=== PATIENT | male | born 1965 | race Caucasian/White ===

== ENCOUNTER 2024-02-08 12:41 | Outpatient (OUT) | payer OTHER, SELFPAY ==
[2024-02-08 13:11] LABS: Estimated Average Glucose 108 mg/dL; Glycohemoglobin A1C 5.4 % (4.5-6.2)
[2024-02-08 13:28] LABS: Basophils Percent Auto 0.5 % (0.2-2.0); Eosinophils Absolute Auto 0.1 10^3/uL (0.0-0.7); Eosinophils Percent Auto 1.1 % (0.9-7.0); Hematocrit 49.6 % (42.0-54.0); Hemoglobin 15.8 g/dL (14.0-18.0); Immature Granulocytes Abs Auto 0.02 10^3/uL (0.00-0.03); Immature Granulocytes Pct Auto 0.3 % (0.0-0.5); Lymphocytes Absolute Auto 1.3 10^3/uL (1.2-3.8); Lymphocytes Percent Auto 20.5 % (20.5-60.0); Mean Corpuscular HGB Conc 31.9 g/dL (29.9-35.2); Mean Corpuscular Hemoglobin 30.5 pg (25.9-34.0); Mean Corpuscular Volume 95.8 fL (80.0-94.0); Mean Platelet Volume 10.8 fL (9.5-13.5); Monocytes Absolute Auto 0.4 10^3/uL (0.3-0.8); Monocytes Percent Auto 5.6 % (1.7-12.0); Neutrophils Absolute Auto 4.6 10^3/uL (1.4-6.5); Platelet Count 206 10^3/uL (150-450); Red Blood Count 5.18 10^6/uL (4.70-6.10); White Blood Count 6.4 10^3/uL (4.0-11.0)
[2024-02-08 14:20] LABS: Alanine Aminotransferase 15 U/L (16-63); Albumin Globulin Ratio 1.1; Albumin Level 3.7 g/dL (3.4-5.0); Alkaline Phosphatase 110 U/L (46-116); Anion Gap 9.1; Aspartate Amino Transferase 13 U/L (15-37); BUN Creatinine Ratio 15.3; Bilirubin Total 0.5 mg/dL (0.2-1.0); Calcium 9.5 mg/dL (8.5-10.1); Carbon Dioxide 31.2 mmol/L (21.0-32.0); Chloride 105 mmol/L (98-107); Chol HDL Ratio 3.5; Cholesterol 176 mg/dL (<=200); Estimated GFR (African America >60 (>=60); Estimated GFR (Non-African Ame >60 (>=60); Globulin 3.3 g/dL; Glucose 98 mg/dL (74-106); HDL Cholesterol 50 mg/dL (40-60); LDL Cholesterol Calculated 107.8 mg/dL; Potassium 4.3 mmol/L (3.5-5.1); Sodium 141 mmol/L (136-145); Triglycerides 91 mg/dL (<=150); VLDL CHOLESTEROL 18.2 mg/dL
== END 2024-02-08 12:42 | disposition home or self-care (01) ==
LOC: LAB 12:45
PROVIDERS: PCP Internal Medicine; Visit Provider Internal Medicine
DX: J43.9 Emphysema, unspecified (principal); K21.9 Gastro-esophageal reflux disease without esophagitis; R10.11 Right upper quadrant pain; K31.9 Disease of stomach and duodenum, unspecified; R10.13 Epigastric pain; Z13.1 Encounter for screening for diabetes mellitus; Z13.220 Encounter for screening for lipoid disorders
CPT/HCPCS: 36415; 80053; 80061; 83036; 85025

== ENCOUNTER 2024-02-23 13:53 | Outpatient (OUT) | payer OTHER, SELFPAY ==
--- NOTE | 2024-02-23 14:05 | CT_ITS ---
[address] [address] Patient Name: EVANGELINA PLAZA MRN: [id number] date: 1965 Sex: M Assigned Patient Location: CT Current Patient Location: CT Accession/Order Number: [id number] Exam Date: 02/23/2024 14:00 Report Date: 02/23/2024 14:49 At the request of: SHAIKH ADRIANA Procedure: CT lung screening low-dose EXAMINATION: CT lung screening low-dose HISTORY: screening for lung cancer Z12.2, nicotine dependence F17.210 COMPARISON: No relevant comparison available. TECHNIQUE: Axial, Coronal, and Sagittal images were created without the administration of IV contrast material. Dose reduction techniques were achieved by using automated exposure control and/or adjustment of mA and/or kV according to patient size and/or use of iterative reconstruction technique. FINDINGS: LUNGS: Mild centrilobular and paraseptal emphysema with an upper lobe predominance. Scattered punctate calcified and noncalcified pulmonary nodules, nonspecific. Irregular spiculated 1.1 x 0.8 cm soft tissue density identified in the left lower lobe axial image 125. 2 areas of groundglass attenuation are identified in the right lower lobe axial image 82 measuring 1.1 and 1.2 cm in diameter PLEURA: No mass, effusion, or pneumothorax. VASCULATURE: No abnormality. SUE: No mass or pathologic adenopathy. MEDIASTINUM: No mass or pathologic adenopathy. CARDIAC: No enlargement, pericardial thickening, or significant calcification. CORONARY ARTERIES: Coronary calcifications are mild. AORTA: No aneurysm or dissection. CHEST WALL: No mass or axillary adenopathy BONES: No bone lesion or fracture. Moderate degenerative spondylosis. Cervical fusion hardware LIMITED ABDOMEN: No suspicious findings. Limited images of the upper abdomen. OTHER: Negative. CT/CT lung screening low-dose IMPRESSION: LUNG SCREENING: Lung-RADS Category 3- Probably benign. Probably benign finding(s)- short term follow up suggested; includes nodules with a low likelihood of becoming a clinically active cancer. Six month LDCT. Electronically authenticated by: EVANGELINA MOLINA Date: 02/23/2024 14:49
== END 2024-02-23 13:54 | disposition home or self-care (01) ==
LOC: CT 13:53
PROVIDERS: PCP Internal Medicine; Visit Provider Internal Medicine
DX: Z12.2 Encounter for screening for malignant neoplasm of respiratory organs (principal); F17.210 Nicotine dependence, cigarettes, uncomplicated
CPT/HCPCS: 71271

== ENCOUNTER 2024-04-19 00:24 | Emergency (ER) | payer OTHER, SELFPAY ==
[2024-04-19 00:27] VITALS: BP 154/88; PULSE 81; TEMP 36.5; O2SAT 98; BMI 27.0
--- OUTSIDE RECORDS SUMMARY | 2024-04-19 00:31 | XMS_ITS | CCD ---
Author Organization [facility] Care Team Providers Care Mark Up Designer Name Role Phone MIGDALIA HUNTER Primary Care Unavailable YOLI TELLEZ Admitting Unavailable YOLI TELLEZ Attending Unavailable YOLI TELLEZ Consulting Unavailable PROVIDER, UNKNOWN Attending Unavailable PROVIDER, UNKNOWN Admitting Unavailable SHAIKH WRIGHT Attending Unavailable SHAIKH WRIGHT Attending Unavailable Allergies Allergy Classification Reported Allergen(s) Allergy Type Date of Onset Reaction(s) Facility (1 source) Penicillins Drug allergy (disorder) 07-05-2013 [facility] Repository Problems Problem Classification Problem Date Documented Da te Episodic/Chronic Chronic obstructive pulmonary disease and bronchiectasis (1 source) Chronic obstructive pulmonary disease, unspecified; Translations: [COPD UNSPECIFIED] Onset: 08-20-2020 Chronic Esophageal disorders (1 source) Gastro-esophageal reflux disease without esophagitis; Translations: [GERD WITHOUT ESOPHAGITIS] Onset: 08-20-2020 Chronic Poisoning by other medications and drugs (1 source) Poisoning by unspecified narcotics, accidental (unintentional), initial encounter; Translations: [POISON UNS NARCOTIC ACC INITIAL ENC] Onset: 08-20-2020 Residual codes; unclassified (3 sources) Transient alteration of awareness; Translations: [TRANSIENT ALTERATION OF AWARENESS] Onset: 08-16-2020 Episodic Substance-related disorders (1 source) Nicotine dependence, cigarettes, uncomplicated; Translations: [NICOTINE DEPEND CIGARETTES UNCOMP] Onset: 08-20-2020 Chronic Encounters Encounter Date Encounter Type Care Provider Facility Start: 02-16-2024 End: 02-16-2024 ambulatory SHAIKH ADRIANA Not Available Start: 12-29-2023 End: 12-29-2023 ambulatory SHAIKH ADRIANA Not Available Start: 07-04-2021 End: 07-09-2021 ambulatory UNKNOWN PROVIDER Facility:[facility] Start: 08-16-2020 End: 08-16-2020 Patient encounter procedure MIGDALIA HUNTER Facility:[facility] Payers Date Payer Category Payer Unknown [id number] 2.16.84 [id number] 1965 Unknown [id number] 1965 Unknown [id number] [id number] [id number] 1965 Unknown [id number] 2.16.84 [id number] 1957 Unknown [id number] Summary Purpose Family History No Family History Records FoundNo Family History Records FoundNo Family History Records Found Advance Directives No Advanced Directives Records FoundNo Advanced Directives Records FoundNo Advanced Directives Records Found Additional Source Comments (unrecognized sect ion and content) No Status Records FoundNo Status Records FoundNo Status Records Found INFORMATION SOURCE (unrecogn ized section and content) DATE CREATED AUTHOR 08/20/2020 [facility] DATE CREATED AUTHOR AUTHOR'S ORGANIZ ATION 07/12/2021 [facility] DATE CREATED AUTHOR AUTHOR'S ORGANIZ ATION 02/18/2024 [facility] FOR RECORDS PERTAINING TO PATIENTS WHO ARE OR HAVE BEEN ENROLLED IN A CHEMICAL DEPENDENCY/SUBSTANCEABUSE PROGRAM, SOME INFORMATION MAY BE OMITTED. This clinical summary was aggregated from multiple sources. Caution should be exercised in using it in the provision of clinical care. This summary normalizes information from multiple sources, and as a consequence, information in this document may materially change the coding, format and clinical context of patient data. In addition, data may be omitted in some cases. CLINICAL DECISIONS SHOULD BE BASED ON THE PRIMARY CLINICAL RECORDS. [facility] [employer] provides no warranty or guarantee of the accuracy or completeness of information in this document.
--- NOTE | 2024-04-19 00:58 | ED.FALL1 ---
HPI HPI - Fall General Chief Complaint: Fall Stated Complaint: left rib pain fall 04/16 Time Seen by Provider: 04/19/24 00:32 Source: patient Mode of arrival: walk-in Limitations: no limitations History of Present Illness HPI Narrative: This 59-year-old male with a history of COPD who is a smoker presents for evaluation of left-sided rib pain. The patient states he fell off of a ladder 2 days ago. He thinks he landed on top of a hammer. Since that time he has had pain in the left anterior rib cage area and states he has a knot in this area. He has increasing shortness of breath and worse pain with deep inspiration and coughing. He denies striking his head. He has no neck or back pain. He has been ambulatory since his fall. Related Data Home Medications ?Medication ?Instructions ?Recorded ?Confirmed No Known Home Medications 04/19/24 04/19/24 Allergies Allergy/AdvReac Type Severity Reaction Status Date / Time Penicillins Allergy Unknown Verified 04/19/24 00:32 Opioid HPI Opioid Management Most Recent Pain and Opioid Data: Last Pain Scale 10 04/19/24 01:12 Last MAR Pain Assessment 04/19/24 02:11 Review of Systems ROS Status of ROS 10 or more systems reviewed and unremarkable except as noted in history and below Exam Narrative Exam Narrative: Vital signs and Nursing Notes reviewed: Patient is afebrile with a normal pulse, blood pressure is elevated at 154/88, he is not hypoxic with pulse ox of 98% on room air General: Awake, alert, oriented, thin uncomfortable appearing male, he is pacing around the room, no respiratory distress HEENT: Normocephalic atraumatic, mucous membranes are moist and pink, eyes are clear, normal conjunctiva, vision is grossly intact Neck: Supple, no midline bony vertebral tenderness or step-off Chest: Lungs are diffusely diminished with mild expiratory wheezing, there is tenderness in the left anterior chest wall without crepitus bruising or other notable abnormality CVS: Regular rate and rhythm S1-S2, no murmurs rubs or gallops, pulses are brisk and equal bilaterally ABD: Soft, nondistended, nontender, no rebound guarding or rigidity, bowel sounds are normal, no pulsatile masses appreciated Extremities: Moving all extremities, no lower extremity tenderness or swelling noted, negative Homans' sign, pulses are brisk and equal bilaterally, no midline bony vertebral cervical, thoracic or lumbar tenderness Skin: Normal in appearance without rash,pallor, petechiae or purpura Neuro: No focal deficits Constitutional Vital Signs, click to edit/add: Last Vital Signs Temp 97.7 F 04/19/24 00:27 Pulse 72 04/19/24 02:13 Resp 18 04/19/24 02:13 BP 148/88 H 04/19/24 02:13 Pulse Ox 99 04/19/24 02:13 O2 Del Method Room Air 04/19/24 02:13 Course Vital Signs Vital signs: Vital Signs Temperature 97.7 F 04/19/24 00:27 Pulse Rate 81 04/19/24 00:27 Respiratory Rate 16 04/19/24 00:27 Blood Pressure 154/88 H 04/19/24 00:27 Pulse Oximetry 98 04/19/24 00:27 Oxygen Delivery Method Room Air 04/19/24 00:27 Temperature 97.7 F 04/19/24 00:27 Pulse Rate 72 04/19/24 02:13 Respiratory Rate 18 04/19/24 02:13 Blood Pressure 148/88 H 04/19/24 02:13 Pulse Oximetry 99 04/19/24 02:13 Oxygen Delivery Method Room Air 04/19/24 02:13 MDM - Fall MDM Narrative Medical decision making narrative: This 59-year-old male with a history of COPD and tobacco use presents for evaluation of left-sided chest pain after he fell from approximately 6 feet on a ladder 2 days ago and landed on a hammer. He has pain in the left anterior chest wall with pain with deep inspiration and coughing. He has expiratory wheezing and diffusely diminished breath sounds in keeping with his COPD. He did have bilateral breath sounds that were able to be appreciated and a normal pulse ox. He was medicated emergency department with a dose of Zofran and Percocet for his pain. CT scanning of the chest was ordered. The CT scan took a great deal of time for the reading to be done and the patient was anxious to be discharged. I reviewed it myself and do not see any fractures but most importantly I definitely do not see a pneumothorax. This was explained to the patient. He will be discharged home with prescription for Motrin, Zofran and Percocet to use over the course of the next several days. He was encouraged to decrease his tobacco intake to help decrease his coughing and return to the emergency department as needed for worsening pain, inability to take his medications or any concerns. I did explain to the patient and his that I will call him if there are any outstanding abnormalities on the CT scan of the chest. CT scan of the chest does show a 6th rib fracture anteriorly with COPD findings and an age indeterminant clavicular fracture. Medical Records Medical records narrative: [place] [address] CT Scan Report Signed Patient: EVANGELINA PLAZA MR#: [id number] : 1965 Acct:[id number] Age/Sex: 59 / M ADM Date: 04/19/24 Loc: ER Attending Dr: Ordering Physician: Bonita Jenkins Date of Service: 04/19/24 Procedure(s): CT chest wo con Accession Number(s): [id number] cc: Shaikh Claus Cain~ The [address] [address] Patient Name: EVANGELINA PLAZA MRN: [id number] date: 1965 Sex: M Assigned Patient Location: ER Current Patient Location: Accession/Order Number: [id number] Exam Date: 04/19/2024 01:00 Report Date: 04/19/2024 02:30 At the request of: BONITA JENKINS Procedure: CT chest wo con EXAMINATION: CT chest wo con, 04/19/2024 1:00 AM EDT HISTORY: PTX patient fell from a ladder. Complains of the left anterior rib pain. COMPARISON: CT chest, 02/23/2024. TECHNIQUE: CT scan of the chest was performed without IV contrast. Sagittal and coronal reconstructions are provided. CT dose reduction technique was used, including Automated Exposure Control. FINDINGS: The exam is limited by the lack of contrast. No mediastinal injury is seen. The nonenhanced thoracic aorta, arch vessels, heart, thyroid and esophagus are grossly unremarkable. There is mild pulmonary emphysema with biapical subpleural blebs or bulla. No pulmonary contusion, pleural fluid or pneumothorax is seen. The nonenhanced upper abdomen is grossly unremarkable. There is an age-indeterminate 8 mm avulsion fracture involving the posterior left clavicular head on image 18 of series 3. There is a nondisplaced fracture involving the left anterior sixth rib on images 76-78. The bony thorax appears otherwise intact. There is anterior fusion hardware in the lower cervical spine. A mild broad thoracic dextroscoliosis is noted with lower thoracic DISH. CORONARY ARTERIES: Coronary calcifications are absent. CT/CT chest wo con IMPRESSION: 1. Acute nondisplaced fracture involving the left anterior sixth rib, with an age indeterminant avulsion fracture involving the posterior left clavicular head. No other acute findings in the chest. 2. Mild pulmonary emphysema. Electronically authenticated by: TAN BILLY Date: 04/19/2024 02:30 Discharge Plan Discharge Stand Alone Forms: Portal Instructions Chief Complaint: Fall Clinical Impression: Fall from ladder, Contusion of rib on left side, Left rib fracture Patient Disposition: Home, Self-Care Time of Disposition Decision: 02:00 Condition: Good Prescriptions / Home Meds: No Action No Known Home Medications Print Language: [place] Islander Instructions: Rib Contusion (ED) Referrals: Shaikh Cain MD [Primary Care Provider] - 1 week Discharge Date/Time: 04/19/24 02:14
[2024-04-19] MEDS: OXYCODONE HCL/ACETAMINOPHEN 5MG/325MG 1 TAB PO (01:12)
[2024-04-19] MEDS: ONDANSETRON 4 MG RAPDIS TABLET SL (01:12)
[2024-04-19] MEDS: OXYCODONE HCL/ACETAMINOPHEN 5MG/325MG 2 TAB PO (02:11)
[2024-04-19 02:13] VITALS: BP 148/88; PULSE 72; O2SAT 99
== END 2024-04-19 02:14 | disposition home or self-care (01) ==
PROVIDERS: Emergency Provider Emergency Medicine; PCP Internal Medicine
DX: S22.32XA Fracture of one rib, left side, initial encounter for closed fracture (principal); J44.9 Chronic obstructive pulmonary disease, unspecified; F17.200 Nicotine dependence, unspecified, uncomplicated; W11.XXXA Fall on and from ladder, initial encounter
CPT/HCPCS: 71250; 99284; Q0162

== ENCOUNTER 2025-03-30 14:32 | Outpatient (OUT) | payer OTHER, SELFPAY ==
--- NOTE | 2025-03-30 14:38 | CT_ITS ---
The [address] [address] Patient Name: EVANGELINA PLAZA MRN: [id number] date: 1965 Sex: M Assigned Patient Location: CT Current Patient Location: CT Accession/Order Number: [id number] Exam Date: 03/30/2025 15:15 Report Date: 03/30/2025 15:19 At the request of: MIGDALIA HUNTER NP Procedure: CT lung screening low-dose CT Chest low-dose lung screening without contrast TECHNIQUE: Axial imaging with 2-D reconstruction. The CT exam was performed using one or more the following dose reduction techniques: Automated exposure control, adjustment of the MA and/or Kv according to patient size, or use of the iterative reconstruction technique. History: Current smoker. 50 years. COMPARISON: 04/19/2024 THYROID: Unremarkable TRACHEA AND BRONCHI: Patent ESOPHAGUS: Unremarkable. HEART: Within normal limits PERICARDIAL EFFUSION: None CORONARY ARTERY CALCIFICATION: None MEDIASTINUM: No adenopathy. No pneumoperitoneum. No mediastinal hematoma. PULMONARY SUE: No hilar mass or adenopathy is seen. THORACIC AORTA Unremarkable LUNG NODULE None LUNGS: Emphysema. Biapical bullous disease. PLEURAL EFFUSION: None PNEUMOTHORAX: No pneumothorax seen. CHEST WALL: No abnormality AXILLA:Unremarkable BONY STRUCTURES left clavicle head fracture redemonstrated. No displaced fracture left anterior sixth rib redemonstrated. Degenerative change. Hyperostosis. UPPER ABDOMEN: Images of the upper abdomen are noncontributory. CT/CT lung screening low-dose IMPRESSION: No visible lung nodule. FINAL ASSESSMENT: Negative. Lung-RADS Version 1.0 Assessment Category: 1 REMARKS: Continued annual screening with LDCT in 12 months is recommended. Impression dictated by: Flakito Miguel M.D. 03/30/2025 3:19 PM Dictation Location: [place] [address] Electronically authenticated by: [id number] Y Date: 03/30/2025 15:19
== END 2025-03-30 14:33 | disposition home or self-care (01) ==
LOC: CT 14:33
PROVIDERS: PCP Internal Medicine; Visit Provider Nurse Practitioner
DX: Z12.2 Encounter for screening for malignant neoplasm of respiratory organs (principal); F17.210 Nicotine dependence, cigarettes, uncomplicated
CPT/HCPCS: 71271

== ENCOUNTER 2025-07-18 08:17 | Emergency (ER) | payer OTHER, SELFPAY ==
--- NOTE | 2025-07-18 | XR_ITS ---
The [address] [address] Patient Name: EVANGELINA PLAZA MRN: [id number] date: 1965 Sex: M Assigned Patient Location: ER Current Patient Location: ER Accession/Order Number: [id number] Exam Date: 07/18/2025 09:19 Report Date: 07/18/2025 09:29 At the request of: CLINT REEDER MD Procedure: XR chest 1V PORTABLE AP RECUMBENT CHEST 0920 hours CLINICAL HISTORY: Cardiac arrest. Intubation. COMPARISON: CT 03/31/2025 A right IJ central line is present with tip at the distal superior vena cava. The endotracheal tube tip is approximately 7 cm above the jesu. There is a feeding tube that is looped within the gastric fundus, tip directed back toward the GE junction. There are large defibrillator pads overlying the left heart. The heart is within normal limits for size. There is no obvious vascular congestion. No focal consolidation is seen. There is no definite effusion or pneumothorax given recumbent positioning. The osseous structures are intact. There is a cervical fusion plate. XR/XR chest 1V IMPRESSION: LIFE-SUPPORT DEVICES, DESCRIBED. NO ACUTE FINDINGS Impression dictated by: Radha Tatum M.D. 07/18/2025 9:29 AM [facility]ictation [facility] Electronically authenticated by: [id number] Y Date: 07/18/2025 09:29
--- OUTSIDE RECORDS SUMMARY | 2025-07-18 08:46 | XMS_ITS | Encounter Summary ---
Author Organization [facility] Address [address] [place] [address] Care Team Providers Care Store Sales Consultant Name Role Phone Unavailable Primary Care Provider Unavailabl e Encounter Details Date Type Department Care Team (Late st Contact Info) Description 01/23/2022 Abstract PATIENT ACUITY SCORE Social History Tobacco Use Types Packs/Day Years Used Date Smoking Tobacco: Never Assessed Sex and Gender Information Value Date Recorded Sex Assigned at Not on file Legal Sex Male 2:04 AM EDT Gender Identity Not on file Sexual Orientation Not on file documented as of this encounter Plan of Treatment Not on file documented as of this encounter Visit Diagnoses Not on filedocumented in this encounter
--- OUTSIDE RECORDS SUMMARY | 2025-07-18 08:46 | XMS_ITS | CCD ---
Author Organization [facility] Care Team Providers Care Probation And Parole Officer Name Role Phone DIOR KHAN Primary Care Unavailable YOLI TELLEZ Admitting Unavailable YOLI TELLEZ Attending Unavailable YOLI TELLEZ Consulting Unavailable PROVIDER, UNKNOWN Attending Unavailable PROVIDER, UNKNOWN Admitting Unavailable Payton HYDE, Unavailable Jeramie Mendez MD Primary Care Provider Palma DATABASE ANALYST, Jessica Unavailable Palma DATABASE ANALYST, Jessica Unavailable DIOR KHAN Attending Unavailable DIOR KHAN Attending Unavailable JESSICA WALDROP Attending Unavailabl e Allergies Allergy Classification Reported Allergen(s) Allergy Type Date of Onset Reaction(s) Facility (1 source) Penicillins Drug allergy (disorder) 3 [facility] Repository (11 sources) Penicillins Drug Intolerance 2 [facility] Medications Current Medications Medication Drug Class(es) Dates Sig (Normalized) Sig (Original) [id number] 200 actuat albuterol 0.09 mg/actuat metered dose inhaler (13 sources) beta2-Adrenergic Agonist Start: 12-29-2023 End: 09-14-2025 take 2 puff(s) by inhalation every four hours for wheezing albuterol HFA (Ventolin HFA) 90 mcg/act inhaler Indications: Pulmonary emphysema, unspecified emphysema type (HCC) Inhale 2 puffs every 4 (four) hours if needed for wheezing 18 g 1 09/14/2024 09/14/2025 Active 60 actuat fluticasone propionate 0.25 mg/actuat / salmeterol 0.05 mg/actuat dry powder inhaler (9 sources) Corticosteroid, beta2-Adrenergic Agonist Start: 03-27-2025 End: 05-05-2025 take 1 puff(s) by mouth in the morning Fluticasone-Salmete rol (Advair Diskus) 250-50 MCG/ACT aerosol powder Indications: Pulmonary emphysema, unspecified emphysema type (HCC) Inhale 1 puff in the morning and 1 puff before bedtime. Rinse mouth after use. 60 each 2 04/05/2025 Active pantoprazole 40 mg delayed release oral tablet (13 sources) Proton Pump Inhibitor Start: 03-16-2025 End: 07-23-2025 take 1 tablet by mouth in the morning pantoprazole (ProtoNix) 40 MG EC tablet Indications: Dyspepsia and disorder of function of stomach Take 1 tablet (40 mg) by mouth in the morning and 1 tablet (40 mg) before bedtime. 180 tablet 04/24/2025 07/23/2025 Active Start: 03-10-2024 End: 03-13-2025 take 1 tablet by mouth before mealtime pantoprazole (ProtoNix) 40 MG EC tablet Indications: Dyspepsia and disorder of function of stomach Take 1 tablet (40 mg) by mouth in the morning. Take before meals. Do not crush, chew, or split.. 90 tablet 1 09/14/2024 03/13/2025 Active 10 actuat tiotropium 0.0025 mg/actuat inhalation spray (8 sources) Anticholinergic Start: 03-27-2025 End: 04-26-2025 take 2 puff(s) by inhalation once daily tiotropium (Spiriva Respimat) 2.5 MCG/ACT inhaler Indications: Pulmonary emphysema, unspecified emphysema type (HCC) Inhale 2 puffs Daily 1 each 2 03/27/2025 Active 7 actuat umeclidinium 0.0625 mg/actuat dry powder inhaler (5 sources) Anticholinergic Start: 02-16-2024 End: 12-13-2024 take 1 puff(s) by inhalation once daily Umeclidinium [place] (Incruse Ellipta) 62.5 MCG/ACT aerosol powder Indications: Pulmonary emphysema, unspecified emphysema type (CMS/HCC) Inhale 1 puff Daily 30 each 2 09/14/2024 12/13/2024 Active Completed/Discontinued Medications Medication Drug Class(es) Dates Sig (Normalized) Sig (Original) 120 actuat budesonide 0.16 mg/actuat / formoterol fumarate 0.0048 mg/actuat / glycopyrrolate 0.009 mg/actuat metered dose inhaler (1 source) Corticosteroid, beta2-Adrenergic Agonist Start: 03-16-2025 End: 03-27-2025 take 2 puff(s) by inhalation in the morning Budeson-Glycopyrro l-Formoterol (Breztri Aerosphere) 160-9-4.8 MCG/ACT aerosol Indications: Pulmonary emphysema, unspecified emphysema type (CMS/HCC) Inhale 2 puffs in the morning and 2 puffs before bedtime. 10.7 g 2 03/16/2025 03/27/2025 Discontinued (Cost of medication) Problems Active Problems Problem Classification Problem Date Documented Da te Episodic/Chronic Chronic obstructive pulmonary disease and bronchiectasis (19 sources) Chronic obstructive pulmonary disease, unspecified; Translations: [Pulmonary emphysema] Onset: 08-20-2020 12-29-2023 Chronic Esophageal disorders (16 sources) Gastro-esophageal reflux disease without esophagitis; Translations: [Gastroesophageal reflux disease without esophagitis] Onset: 08-20-2020 12-29-2023 Chronic Other connective tissue disease (4 sources) Chronic pain of left upper limb; Translations: [Pain in left hand] Onset: 05-16-2025 05-16-2025 Episodic Other screening for suspected conditions (not mental disorders or infectious disease) (20 sources) Patient encounter status; Translations: [Encounter for screening for lipoid disorders] Onset: 12-29-2023 Resolved: 03-16-2025 12-29-2023 Episodic Poisoning by other medications and drugs (1 source) Poisoning by unspecified narcotics, accidental (unintentional), initial encounter; Translations: [POISON UNS NARCOTIC ACC INITIAL ENC] Onset: 08-20-2020 Residual codes; unclassified (3 sources) Transient alteration of awareness; Translations: [TRANSIENT ALTERATION OF AWARENESS] Onset: 08-16-2020 Episodic Substance-related disorders (20 sources) Nicotine dependence, cigarettes, uncomplicated; Translations: [Smoker] Onset: 08-20-2020 Resolved: 03-16-2025 12-29-2023 Chronic Past or Other Problems Problem Classification Problem Date Documented Da te Episodic/Chronic Abdominal pain (11 sources) Right upper quadrant pain; Translations: [Right upper quadrant pain] Onset: 12-29-2023 12-29-2023 Episodic Other circulatory disease (11 sources) Elevated blood-pressure reading without diagnosis of hypertension; Translations: [Elevated blood-pressure reading, without diagnosis of hypertension] Onset: 12-29-2023 12-29-2023 Episodic Other disorders of stomach and duodenum (14 sources) Disorder of function of stomach; Translations: [Disease of stomach and duodenum, unspecified] Onset: 12-29-2023 Resolved: 03-16-2025 12-29-2023 Episodic Residual codes; unclassified (11 sources) Tobacco user; Translations: [Tobacco use] Onset: 02-16-2024 Resolved: 03-16-2025 02-16-2024 Episodic Results Test Name Value Interpretation Reference Range Facil ity CT LUNG SCREENING LOW DOSEon 03-30-2025 [place] [address] CT Scan Report Signed Patient: EVANGELINA RECINOS MR#: [id number] : 1965 Acct:[id number] Age/Sex: 60 / M ADM Date: 03/30/25 Loc: CT Attending Dr: Dior Khan NP Ordering Physician: Dior Khan NP Date of Service: 03/30/25 Procedure(s): CT lung screening low-dose Accession Number(s): [id number] cc: Shaikh Claus Cain [place] [id number] Patient Name: EVANGELINA RECINOS MRN: [id number] date: 1965 Sex: M Assigned Patient Location: CT Current Patient Location: CT Accession/Order Number: [id number] Exam Date: 03/30/2025 15:15 Report Date: 03/30/2025 15:19 At the request of: DIOR KHAN NP Procedure: CT lung screening low-dose CT Chest low-dose lung screening without contrast TECHNIQUE: Axial imaging with 2-D reconstruction. The CT exam was performed using one or more the following dose reduction techniques: Automated exposure control, adjustment of the MA and/or Kv according to patient size, or use of the iterative reconstruction technique. History: Current smoker. 50 years. COMPARISON: 04/19/2024 THYROID: Unremarkable TRACHEA AND BRONCHI: Patent ESOPHAGUS: Unremarkable. HEART: Within normal limits PERICARDIAL EFFUSION: None CORONARY ARTERY CALCIFICATION: None MEDIASTINUM: No adenopathy. No pneumoperitoneum. No mediastinal hematoma. PULMONARY SUE: No hilar mass or adenopathy is seen. THORACIC AORTA Unremarkable LUNG NODULE None LUNGS: Emphysema. Biapical bullous disease. PLEURAL EFFUSION: None PNEUMOTHORAX: No pneumothorax seen. CHEST WALL: No abnormality AXILLA:Unremarkable BONY STRUCTURES left clavicle head fracture redemonstrated. No displaced fracture left anterior sixth rib redemonstrated. Degenerative change. Hyperostosis. UPPER ABDOMEN: Images of the upper abdomen are noncontributory. CT/CT lung screening low-dose IMPRESSION: No visible lung nodule. FINAL ASSESSMENT: Negative. Lung-RADS Version 1.0 Assessment Category: 1 REMARKS: Continued annual screening with LDCT in 12 months is recommended. Impression dictated by: Flakito Miguel M.D. 03/30/2025 3:19 PM Dictation Location: [place] [address] Electronically authenticated by: [id number] Y Date: 03/30/2025 15:19 Dictated By: Flakito Miguel D.O. Signed By: 03/30/25 1522 DD/ 1519 TD/TT: Sail Repairer: [facility], Radiologist, - 03/30/2025 [place] [address] CT Scan Report Signed Patient: EVANGELINA RECINOS MR#: [id number] : 1965 Acct:[id number] Age/Sex: 60 / M ADM Date: 03/30/25 Loc: CT Attending Dr: Dior Khan NP Ordering Physician: Dior Khan NP Date of Service: 03/30/25 Procedure(s): CT lung screening low-dose Accession Number(s): [id number] cc: Shaikh Claus Cain The [address] [address] Patient Name: EVANGELINA RECINOS MRN: [id number] date: 1965 Sex: M Assigned Patient Location: CT Current Patient Location: CT Accession/Order Number: [id number] Exam Date: 03/30/2025 15:15 Report Date: 03/30/2025 15:19 At the request of: DIOR KHAN NP Procedure: CT lung screening low-dose CT Chest low-dose lung screening without contrast TECHNIQUE: Axial imaging with 2-D reconstruction. The CT exam was performed using one or more the following dose reduction techniques: Automated exposure control, adjustment of the MA and/or Kv according to patient size, or use of the iterative reconstruction technique. History: Current smoker. 50 years. COMPARISON: 04/19/2024 THYROID: Unremarkable TRACHEA AND BRONCHI: Patent ESOPHAGUS: Unremarkable. HEART: Within normal limits PERICARDIAL EFFUSION: None CORONARY ARTERY CALCIFICATION: None MEDIASTINUM: No adenopathy. No pneumoperitoneum. No mediastinal hematoma. PULMONARY SUE: No hilar mass or adenopathy is seen. THORACIC AORTA Unremarkable LUNG NODULE None LUNGS: Emphysema. Biapical bullous disease. PLEURAL EFFUSION: None PNEUMOTHORAX: No pneumothorax seen. CHEST WALL: No abnormality AXILLA:Unremarkable BONY STRUCTURES left clavicle head fracture redemonstrated. No displaced fracture left anterior sixth rib redemonstrated. Degenerative change. Hyperostosis. UPPER ABDOMEN: Images of the upper abdomen are noncontributory. CT/CT lung screening low-dose IMPRESSION: No visible lung nodule. FINAL ASSESSMENT: Negative. Lung-RADS Version 1.0 Assessment Category: 1 REMARKS: Continued annual screening with LDCT in 12 months is recommended. Impression dictated by: Flakito Miguel M.D. 03/30/2025 3:19 PM Dictation Location: [place] [address] Electronically authenticated by: [id number] Y Date: 03/30/2025 15:19 Dictated By: Flakito Miguel D.O. Signed By: 03/30/25 1522 DD/ 1519 TD/TT: Sail Repairer: [facility] Radiology Study observation (narrative) [facility] CT LUNG SCREENING LOW DOSEOr dered By: Radiologist Radiology on 03-30-2025 [facility] Work Phone: Vital Signs Date Time Vital Sign Value Performing Clinician Dennis thomas 05-16-2025 14:11-0400 Body mass index (BMI) [Ratio] 25.43 kg/m2 Diorsarah Garciahholz DATABASE ANALYST Work Phone: [facility] 05-16-2025 14:11-0400 Body temperature 98.49 [degF] Dior Aichholz DATABASE ANALYST Work Phone: [facility] 05-16-2025 14:11-0400 Body weight 80.38 kg Dior Aichholz DATABASE ANALYST Work Phone: [facility] 05-16-2025 14:11-0400 Diastolic blood pressure 86 mm[Hg] Dior Aichholz DATABASE ANALYST Work Phone: [facility] 05-16-2025 14:11-0400 Heart rate 80 /min Dior Aichholz DATABASE ANALYST Work Phone: [facility] 05-16-2025 14:11-0400 Respiratory rate 22 /min Dior Aichholz DATABASE ANALYST Work Phone: [facility] 05-16-2025 14:11-0400 SaO2% (BldA) [Mass fraction] 95 % Dior Radhahholz DATABASE ANALYST Work Phone: [facility] 05-16-2025 14:11-0400 Systolic blood pressure 128 mm[Hg] Dior Aichholz DATABASE ANALYST Work Phone: [facility] 09-14-2024 11:06-0500 Body height 177.8 cm Jessica Waldrop DATABASE ANALYST Work Phone: [facility] 09-14-2024 11:06-0500 Body mass index (BMI) [Ratio] 26.69 kg/m2 Jessica Waldrop DATABASE ANALYST Work Phone: [facility] 09-14-2024 11:06-0500 Body temperature 97.11 [degF] Jessica Waldrop DATABASE ANALYST Work Phone: [facility] 09-14-2024 11:06-0500 Body weight 84.37 kg Jessica Shahtrick DATABASE ANALYST Work Phone: [facility] 09-14-2024 11:06-0500 Diastolic blood pressure 74 mm[Hg] Jessica Waldrop DATABASE ANALYST Work Phone: [facility] 09-14-2024 11:06-0500 Heart rate 70 /min Jessica Limonpatrick DATABASE ANALYST Work Phone: [facility] 09-14-2024 11:06-0500 Respiratory rate 18 /min Jessica Shahtrick DATABASE ANALYST Work Phone: [facility] 09-14-2024 11:06-0500 SaO2% (BldA) [Mass fraction] 97 % Jessica Shahtrick DATABASE ANALYST Work Phone: [facility] 09-14-2024 11:06-0500 Systolic blood pressure 120 mm[Hg] Jessica Shahtrick DATABASE ANALYST Work Phone: [facility] Healthcare Encounters Encounter Date Encounter Type Care Provider Facility Start: 05-16-2025 End: 05-16-2025 ambulatory DIOR KHAN Not Available Start: 05-16-2025 End: 05-16-2025 Bamboo flowsheet Dior Khan DATABASE ANALYST Work Phone: [facility] Start: 05-16-2025 End: 05-16-2025 Bamboo flowsheet Dior Bill DATABASE ANALYST Work Phone: [facility] Start: 05-16-2025 End: 05-16-2025 Office outpatient visit 25 minutes Dior Khan DATABASE ANALYST Work Phone: [facility] Comment on above: Chronic hand pain, l eft (Primary Dx); Cigarette nicotine dependence without complication; Gastroesophageal reflux disease without esophagitis; Pulmonary emphysema, unspecified emphysema type (HCC) Start: 04-24-2025 End: 04-24-2025 Refill Diorsarah Butlerz DATABASE ANALYST Work Phone: [facility] Comment on above: Dyspepsia and disord er of function of stomach Med Refill Start: 04-05-2025 End: 04-05-2025 Refill Dior Deoholz DATABASE ANALYST Work Phone: [facility] Comment on above: Pulmonary emphysema, unspecified emphysema type (CMS/HCC) Start: 03-30-2025 End: 03-30-2025 [facility] Result Encounter Dior Khan DATABASE ANALYST Work Phone: [facility] Unsolicited Start: 03-30-2025 End: 03-30-2025 [facility] Result Encounter Dior Khan DATABASE ANALYST Work Phone: [facility] Unsolicited Start: 03-27-2025 End: 03-27-2025 Refill Diorsarah Desouzamarlondaphne DATABASE ANALYST Work Phone: [facility] Comment on above: Pulmonary emphysema, unspecified emphysema type (CMS/HCC) (Primary Dx) Start: 03-16-2025 End: 03-16-2025 ambulatory DIOR DEOHOLZ Not Available Start: 09-14-2024 End: 09-14-2024 Bamboo flowsheet Jessica Bahenak DATABASE ANALYST Work Phone: [facility] Start: 09-14-2024 End: 09-14-2024 Bamboo flowsheet Jessica Davaloszpatrick DATABASE ANALYST Work Phone: [facility] Start: 09-14-2024 End: 09-14-2024 ambulatory JESSICA WALDROP Not Available Start: 09-14-2024 End: 09-14-2024 Office outpatient visit 15 minutes Jessica Waldrop DATABASE ANALYST Work Phone: [facility] Comment on above: Gastroesophageal ref lux disease without esophagitis (Primary Dx); Pulmonary emphysema, unspecified emphysema type (CMS/HCC); Dyspepsia and disorder of function of stomach Start: 02-16-2024 End: 03-16-2025 Patient encounter procedure Jessica Davaloszpatrick DATABASE ANALYST Work Phone: [facility] Healthcare Start: 12-29-2023 End: 03-16-2025 Patient encounter status Jessica Waldrop DATABASE ANALYST Work Phone: [facility] Start: 07-04-2021 End: 07-09-2021 ambulatory UNKNOWN PROVIDER Facility:[facility] Start: 08-16-2020 End: 08-16-2020 Patient encounter procedure DIOR KHAN Facility: Procedures Date Procedure Procedure Detail Performing Clinician Start: 03-30-2025 CT LUNG SCREENING LO W DOSE Dior Khan DATABASE ANALYST Work Phone: Plan of Treatment Date Care Activity Detail Author Start: 06-26-2025 Influenza vaccination [facility] Start: 05-16-2025 End: 05-16-2026 Erythrocyte sedimentation rate Sedimentation rate, automated Lab Routine Chronic hand pain, left Expected: 05/16/2025 (Approximate), Expires: 05/16/2026 [facility] Comment on above: Expected: 05/16/2025 (Approximate), Expires: 05/16/2026 Start: 05-16-2025 End: 05-16-2025 Patient encounter procedure 05/16/2025 2:00 PM EDT Office Visit [facility] [address] [place] [address] Dior Khan NP [address] [place] [address] [facility] Start: 05-16-2025 End: 05-16-2026 Rheumatoid factor [Units/volume] in Serum or Plasma Rheumatoid factor Lab Routine Chronic hand pain, left Expected: 05/16/2025 (Approximate), Expires: 05/16/2026 [facility] Work Phone: Comment on above: Expected: 05/16/2025 (Approximate), Expires: 05/16/2026 Start: 05-16-2025 End: 05-16-2026 Urate [Mass/volume] in Serum or Plasma Uric acid Lab Routine Chronic hand pain, left Expected: 05/16/2025 (Approximate), Expires: 05/16/2026 [facility] Comment on above: Expected: 05/16/2025 (Approximate), Expires: 05/16/2026 Start: 05-16-2025 End: 05-16-2026 XR Hand - left 2 Views XR hand 1 or 2 views left Imaging Routine Chronic hand pain, left Expected: 05/16/2025 (Approximate), Expires: 05/16/2026 [facility] Comment on above: Expected: 05/16/2025 (Approximate), Expires: 05/16/2026 Start: 03-14-2025 End: 03-14-2025 Patient encounter procedure 03/14/2025 2:00 PM EDT Office Visit [facility] [address] [place] [address] Jessica Waldrop, ROCIO [address] [place] [address] [facility] Start: 06-26-2024 Influenza vaccination Influenza Vacc ine (#1) [facility] Start: 1965 Screening for malign ant neoplasm of colon [facility] Immunizations Immunization Date Immunization Notes Care Provider Fa cility 01-10-2021 diphtheria, tetanus toxoids and pertussis vaccine Dior Khan DATABASE ANALYST Work Phone: [facility] 01-10-2021 tetanus toxoid, redu tejinder diphtheria toxoid, and acellular pertussis vaccine, adsorbed Dior Khan DATABASE ANALYST Work Phone: [facility] 09-08-2019 influenza, injectabl e, quadrivalent, preservative free Dior Khan DATABASE ANALYST Work Phone: [facility] 09-08-2019 influenza virus vaccine, unspecified formulation Jessica Waldrop DATABASE ANALYST Work Phone: [facility] Payers Date Payer Category Payer Medicaid (Managed Care) [employer] [id number] 1965 Unknown [id number] 1965 Unknown [id number] 1965 Unknown [id number] 1965 Unknown [id number] 1965 Unknown [id number] 1959 Unknown [id number] Social History Date Type Detail Facility Start: 12-29-2023 End: 09-14-2024 Tobacco smoking status INIS Smokes tobacco daily [facility] History of tobacco use Cigarette Smoker [facility] History of tobacco use Passive smoker [facility] Start: 12-29-2023 End: 09-14-2024 Tobacco use and exposure Smokeless tobacco non-user [facility] Start: 02-16-2024 End: 05-16-2025 Alcoholic beverage intake Lifetime non-drinker (finding) [facility] Start: 02-16-2024 End: 09-11-2024 History of Social function [facility] Start: 02-16-2024 End: 09-11-2024 [id number] Health Literacy [facility] How often do you nee d to have someone help you when you read instructions, pamphlets, or other written material from your doctor or pharmacy [SILS] Never [facility] Do you belong to any clubs or organizations such as judaism groups, unions, fraternal or athletic groups, or school groups? No [facility] Are you now , , , , never or living with a partner? Living with partner [facility] How often to you hav e a drink containing alcohol? Never [facility] How hard is it for y ou to pay for the very basics like food, housing, medical care, and heating Somewhat hard [facility] Do you feel stress - tense, restless, nervous, or anxious, or unable to sleep at night because your mind is troubled all the time - these days [OSQ] Not at all [facility] (I/We) worried wheth er (my/our) food would run out before (I/we) got money to buy more. Sometimes true [facility] The food that (I/we) bought just didn't last, and (I/we) didn't have money to get more. Never true [facility] In the past 12 month s, was there a time when you were not able to pay the mortgage or rent on time? Yes [facility] Start: 1965 Sex assigned at Not on file [facility] History of Present illness Narrative 05-16-2025 Dior Khan NP - 05/16/2025 2:31 PM EDBALWINDER ROTHMAN - 05/16/2025 2:00 PM Elaina Khan NP - 05/16/2025 2:00 PM Elaina Khan NP - 05/16/2025 7:03 AM EDT Note Date & Type Note Facility 05-16-2025 History of Presen t illness Narrative Associated Problem(s): Chronic hand pain, left Check xray uric acid and RA Left hand pain-possible RA started years ago, hand and knuckles swell up that can last a couple weeks at a time. Images from the original note were not included. Evangelina Recinos is a 60 y.o. male presents with chief complaint of No chief complaint on file. HPI: Hand pain: left 3rd MCP joint, sharp pain, no NT, +swelling, no trauma, sometimes redness GI: stomach feels better w back on meds, did not get call from GI SUBJECTIVE: MEDICATIONS: Current Outpatient Medications Medication Instructions albuterol HFA (Ventolin HFA) 90 mcg/act inhaler 2 puffs, Inhalation, Every 4 hours PRN Fluticasone-Salmeterol (Advair Diskus) 250-50 MCG/ACT aerosol powder 1 puff, Inhalation, 2 times daily, Rinse mouth after use pantoprazole (PROTONIX) 40 mg, Oral, 2 times daily tiotropium (Spiriva Respimat) 2.5 MCG/ACT inhaler 2 puffs, Inhalation, Daily ALLERGIES: Allergies Allergen Reactions Penicillins REVIEW OF SYMPTOMS: Review of Systems Constitutional: Negative for activity change, appetite change and unexpected weight change. HENT: Negative for ear pain, nosebleeds, sneezing, trouble swallowing and voice change. Eyes: Negative for pain, discharge and visual disturbance. Respiratory: Positive for cough, shortness of breath and wheezing. Negative for apnea and chest tightness. Cardiovascular: Negative for leg swelling. Gastrointestinal: Negative for abdominal distention, blood in stool, constipation and diarrhea. Genitourinary: Negative for decreased urine volume, difficulty urinating, dysuria and hematuria. Musculoskeletal: Positive for joint swelling. Skin: Negative for color change. Neurological: Negative for dizziness, tremors and seizures. Psychiatric/Behavioral: Negative for agitation, decreased concentration, hallucinations, self-injury and suicidal ideas. The patient is not nervous/anxious. Hematological: Negative for adenopathy. Does not bruise/bleed easily. Endocrine: Negative for cold intolerance, heat intolerance, polydipsia and polyuria. Allergic/Immunologic: Negative for environmental allergies and food allergies. PAST MEDICAL HISTORY Past Medical History: Diagnosis Date COPD (chronic obstructive pulmonary disease) (HCC) Past Surgical History: Procedure Laterality Date CERVICAL SPINE SURGERY family history includes Lung cancer in his mother; No Known Problems in his father. OBJECTIVE: Visit Vitals BP 128/86 (BP Location: Left arm, Patient Position: Sitting, BP Cuff Size: Adult long) Pulse 80 Temp 98.5 F (Temporal) Resp 22 Wt 177 lb 3.2 oz SpO2 95% BMI 25.43 kg/m Smoking Status Every Day BSA 1.99 m Physical Exam Vitals and nursing note reviewed. Constitutional: Appearance: Normal appearance. He is not ill-appearing. HENT: Head: Normocephalic. Right Ear: External ear normal. Left Ear: External ear normal. Nose: Nose normal. Mouth/Throat: Mouth: Mucous membranes are moist. Pharynx: Oropharynx is clear. Eyes: Extraocular Movements: Extraocular movements intact. Conjunctiva/sclera: Conjunctivae normal. Cardiovascular: Rate and Rhythm: Normal rate and regular rhythm. Pulses: Normal pulses. Heart sounds: Normal heart sounds. No murmur heard. Pulmonary: Effort: Pulmonary effort is normal. Breath sounds: Wheezing (exp) present. No rhonchi. Musculoskeletal: Cervical back: Neck supple. Right lower leg: Edema present. Left lower leg: No edema. Comments: Bilat hand grasps = +tenderness and swelling to MCP 3rd digit Skin: General: Skin is warm and dry. Capillary Refill: Capillary refill takes 2 to 3 seconds. Neurological: General: No focal deficit present. Mental Status: He is alert. Psychiatric: Mood and Affect: Mood normal. Behavior: Behavior normal. Thought Content: Thought content normal. Judgment: Judgment normal. ASSESSMENT AND PLAN: No follow-ups on file. Problem List Items Addressed This Visit COPD (chronic obstructive pulmonary disease) with emphysema (HCC) Current meds; albuterol, and incruse Urged to quit smoking Gastroesophageal reflux disease without esophagitis Recommendations: freq small meals, nothing to eat or drink at least 2 hours prior to bed, limit caffeine, alcohol, as well as spicy foods Meds to limit or avoid if possible: NSAIDS Elevate HOB if possible Current med: pantoprazole Has been referred to GI on 03/16/25 Gave pt phone number to GI, explained to have scopes Discussed barretts and ulcer etc Cigarette nicotine dependence without complication - Primary The patient has been advised of the risks of continued smoking: stroke, SC, all forms of cancer, lung disease, and . Options for quitting smoking include: cold turkey, hypnosis, acupuncture, nicotine replacement meds (gum, lozenges, and patches), Buproprion, and Varenicline. At this time pt is encouraged to evaluate their goals for wanting to quit smoking, and reach out to provider when ready to start this process Chronic hand pain, left Check xray uric acid and RA Relevant Orders Rheumatoid factor Uric acid Sedimentation rate, automated XR hand 1 or 2 views left Associated Problem(s): COPD (chronic obstructive pulmonary disease) with emphysema (HCC) Current meds; albuterol, and incruse Urged to quit smoking Associated Problem(s): Gastroesophageal reflux disease without esophagitis Recommendations: freq small meals, nothing to eat or drink at least 2 hours prior to bed, limit caffeine, alcohol, as well as spicy foods Meds to limit or avoid if possible: NSAIDS Elevate HOB if possible Current med: pantoprazole Has been referred to GI on 03/16/25 Gave pt phone number to GI, explained to have scopes Discussed barretts and ulcer etc Associated Problem(s): Cigarette nicotine dependence without complication The patient has been advised of the risks of continued smoking: stroke, SC, all forms of cancer, lung disease, and . Options for quitting smoking include: cold turkey, hypnosis, acupuncture, nicotine replacement meds (gum, lozenges, and patches), Buproprion, and Varenicline. At this time pt is encouraged to evaluate their goals for wanting to quit smoking, and reach out to provider when ready to start this process documented in this encounter [facility] Instructions 05-16-2025 Patient Instructions Note Date & Type Note Facility 05-16-2025 Instructions Dior Khan NP - 05/16/2025 2:00 PM EDT Please get labs completed: fasting Check xray hand GI doctor , please call office in Dr Camilo Live [phone] [place] [address] documented in this encounter [facility] Telephone encounter Note 04-24-2025 Telephone Encounter - BALWINDER RODRIGUEZ - 04/24/2025 4:31 PM EDT Note Date & Type Note Facility 04-24-2025 Telephone encount er Note Text Medicaid Business Analyst Yesusie, this is Evangelina Recinos. I need you to call me back for a refill on my I c I can tell you what the your name is sold. You are 40 mg stemming. I need to refill on them. Can you please let me know if I can get it? Thank you. [facility] Note 04-24-2025 Telephone Encounter - BALWINDER RODRIGUEZ - 04/24/2025 4:31 PM EDT Note Date & Type Note Facility 04-24-2025 Miscellaneous Notes Formattin g of this note might be different from the original. Text Medicaid Business Analyst Yesusie, this is Evangelina Recinos. I need you to call me back for a refill on my I c I can tell you what the your name is sold. You are 40 mg stemming. I need to refill on them. Can you please let me know if I can get it? Thank you. documented in this encounter [facility] History of Present illness Narrative 09-14-2024 Jessica Waldrop, ROCIO - 09/14/2024 11:22 AM Emiliano Waldrop NP - 09/14/2024 11:21 AM Emiliano Waldrop NP - 09/14/2024 11:00 AM EST Note Date & Type Note Facility 09-14-2024 History of Presen t illness Narrative Associated Problem(s): COPD (chronic obstructive pulmonary disease) with emphysema (CMS/HCC) Currently uses Incruse daily and Albuterol once weekly. Current 0.5ppd smoker. Patient encouraged to quit smoking but not interested in it Used to be on symbicort. Current smoker. Has morning cough and HARKINS. Ordered PFTs - did not get it done. Associated Problem(s): Gastroesophageal reflux disease without esophagitis Currently taking Prontonix. States he feels symptoms are well controlled at this time. Was previously referred to GI for EGD- pt did not follow up. Is not interested at this time. Will revisit at next OV Images from the original note were not included. Subjective Patient ID: Evangelina Recinos is a 59 y.o. male who presents for Follow-up. HPI COPD: Currently uses Incruse daily and Albuterol once weekly. Current 0.5ppd smoker. Patient encouraged to quit smoking but not interested in it Used to be on symbicort. Current smoker. Has morning cough and HARKINS. Ordered PFTs - did not get it done. GERD: Currently taking Prontonix. States he feels symptoms are well controlled at this time. Was previously referred to GI for EGD- pt did not follow up. Is not interested at this time. Will revisit at next OV Review of Systems Constitutional: Negative for activity change, appetite change, chills, diaphoresis, fatigue, fever and unexpected weight change. HENT: Negative for congestion, ear pain, rhinorrhea, sinus pressure, sinus pain, sneezing, sore throat, trouble swallowing and voice change. Eyes: Negative for visual disturbance. Respiratory: Negative for cough, chest tightness, shortness of breath and wheezing. Cardiovascular: Negative for chest pain, palpitations and leg swelling. Gastrointestinal: Negative for abdominal distention, abdominal pain, blood in stool, constipation, diarrhea and vomiting. Genitourinary: Negative for decreased urine volume, dysuria, flank pain, frequency, hematuria and urgency. Musculoskeletal: Negative for arthralgias, gait problem, joint swelling and myalgias. Skin: Negative for rash. Neurological: Negative for dizziness, tremors, syncope, weakness, light-headedness and headaches. Psychiatric/Behavioral: Negative for decreased concentration and suicidal ideas. The patient is not nervous/anxious. Hematological: Does not bruise/bleed easily. Endocrine: Negative for cold intolerance, heat intolerance, polydipsia, polyphagia and polyuria. Objective Physical Exam Vitals reviewed. Constitutional: Appearance: Normal appearance. HENT: Head: Normocephalic and atraumatic. Right Ear: Tympanic membrane normal. Left Ear: Tympanic membrane normal. Nose: Nose normal. Mouth/Throat: Mouth: Mucous membranes are moist. Pharynx: Oropharynx is clear. Eyes: Pupils: Pupils are equal, round, and reactive to light. Cardiovascular: Rate and Rhythm: Normal rate and regular rhythm. Pulses: Normal pulses. Heart sounds: Normal heart sounds. Pulmonary: Effort: Pulmonary effort is normal. Breath sounds: Normal breath sounds. Abdominal: General: Abdomen is flat. Bowel sounds are normal. Palpations: Abdomen is soft. Musculoskeletal: General: Normal range of motion. Cervical back: Normal range of motion. Skin: General: Skin is warm and dry. Capillary Refill: Capillary refill takes less than 2 seconds. Neurological: General: No focal deficit present. Mental Status: He is alert and oriented to person, place, and time. Psychiatric: Mood and Affect: Mood normal. Behavior: Behavior normal. Assessment/Plan Problem List Items Addressed This Visit COPD (chronic obstructive pulmonary disease) with emphysema ([facility]) Currently uses Incruse daily and Albuterol once weekly. Current 0.5ppd smoker. Patient encouraged to quit smoking but not interested in it Used to be on symbicort. Current smoker. Has morning cough and HARKINS. Ordered PFTs - did not get it done. Relevant Medications albuterol HFA (Ventolin HFA) 90 mcg/act inhaler Umeclidinium [place] (Incruse Ellipta) 62.5 MCG/ACT aerosol powder Gastroesophageal reflux disease without esophagitis - Primary Currently taking Prontonix. States he feels symptoms are well controlled at this time. Was previously referred to GI for EGD- pt did not follow up. Is not interested at this time. Will revisit at next OV Dyspepsia and disorder of function of stomach Relevant Medications pantoprazole (ProtoNix) 40 MG EC tablet documented in this encounter [facility] Evaluation note Note Date & Type Note Facility Evaluation note Diagnosis Current smoker- Primary Encounter for medical examination to establish care Pulmonary emphysema, unspecified emphysema type (CMS/HCC) Gastroesophageal reflux disease without esophagitis Esophageal reflux Lipid screening Screening for lipoid disorders Screening for diabetes mellitus Elevated blood pressure reading in office without diagnosis of hypertension Right upper quadrant abdominal pain Dyspepsia and disorder of function of stomach Dyspepsia and other specified disorders of function of stomach Tobacco abuse- Primary Tobacco use disorder Pulmonary emphysema, unspecified emphysema type (CMS/HCC) Elevated blood pressure reading in office without diagnosis of hypertension Gastroesophageal reflux disease without esophagitis Esophageal reflux Right upper quadrant abdominal pain Encounter for screening for malignant neoplasm of colon Encounter for screening for lung cancer Annual physical exam Routine general medical examination at a health care facility Dyspepsia and disorder of function of stomach Dyspepsia and other specified disorders of function of stomach Cigarette nicotine dependence without complication Gastroesophageal reflux disease without esophagitis- Primary Esophageal reflux Pulmonary emphysema, unspecified emphysema type (CMS/HCC) Dyspepsia and disorder of function of stomach Dyspepsia and other specified disorders of function of stomach documented in this encounter [facility] Evaluation note Note Date & Type Note Facility Evaluation note Diagnosis Current smoker- Primary Encounter for medical examination to establish care Pulmonary emphysema, unspecified emphysema type (CMS/HCC) Gastroesophageal reflux disease without esophagitis Esophageal reflux Lipid screening Screening for lipoid disorders Screening for diabetes mellitus Elevated blood pressure reading in office without diagnosis of hypertension Right upper quadrant abdominal pain Dyspepsia and disorder of function of stomach Dyspepsia and other specified disorders of function of stomach Tobacco abuse- Primary Tobacco use disorder Pulmonary emphysema, unspecified emphysema type (CMS/HCC) Elevated blood pressure reading in office without diagnosis of hypertension Gastroesophageal reflux disease without esophagitis Esophageal reflux Right upper quadrant abdominal pain Encounter for screening for malignant neoplasm of colon Encounter for screening for lung cancer Annual physical exam Routine general medical examination at a health care facility Dyspepsia and disorder of function of stomach Dyspepsia and other specified disorders of function of stomach Cigarette nicotine dependence without complication Gastroesophageal reflux disease without esophagitis- Primary Esophageal reflux Pulmonary emphysema, unspecified emphysema type (CMS/HCC) Dyspepsia and disorder of function of stomach Dyspepsia and other specified disorders of function of stomach Pulmonary emphysema, unspecified emphysema type (CMS/HCC)- Primary Gastroesophageal reflux disease without esophagitis Esophageal reflux Cigarette nicotine dependence without complication Prostate cancer screening Special screening for malignant neoplasm of prostate Encounter for screening for lung cancer Encounter for screening for malignant neoplasm of colon Dyspepsia and disorder of function of stomach Dyspepsia and other specified disorders of function of stomach Pulmonary emphysema, unspecified emphysema type (CMS/HCC)- Primary documented in this encounter [facility] Evaluation note Note Date & Type Note Facility Evaluation note Diagnosis Current smoker- Primary Encounter for medical examination to establish care Pulmonary emphysema, unspecified emphysema type (CMS/HCC) Gastroesophageal reflux disease without esophagitis Esophageal reflux Lipid screening Screening for lipoid disorders Screening for diabetes mellitus Elevated blood pressure reading in office without diagnosis of hypertension Right upper quadrant abdominal pain Dyspepsia and disorder of function of stomach Dyspepsia and other specified disorders of function of stomach Tobacco abuse- Primary Tobacco use disorder Pulmonary emphysema, unspecified emphysema type (CMS/HCC) Elevated blood pressure reading in office without diagnosis of hypertension Gastroesophageal reflux disease without esophagitis Esophageal reflux Right upper quadrant abdominal pain Encounter for screening for malignant neoplasm of colon Encounter for screening for lung cancer Annual physical exam Routine general medical examination at a health care facility Dyspepsia and disorder of function of stomach Dyspepsia and other specified disorders of function of stomach Cigarette nicotine dependence without complication Gastroesophageal reflux disease without esophagitis- Primary Esophageal reflux Pulmonary emphysema, unspecified emphysema type (CMS/HCC) Dyspepsia and disorder of function of stomach Dyspepsia and other specified disorders of function of stomach Pulmonary emphysema, unspecified emphysema type (CMS/HCC)- Primary Gastroesophageal reflux disease without esophagitis Esophageal reflux Cigarette nicotine dependence without complication Prostate cancer screening Special screening for malignant neoplasm of prostate Encounter for screening for lung cancer Encounter for screening for malignant neoplasm of colon Dyspepsia and disorder of function of stomach Dyspepsia and other specified disorders of function of stomach Pulmonary emphysema, unspecified emphysema type (CMS/HCC) documented in this encounter [facility] Evaluation note Note Date & Type Note Facility Evaluation note Diagnosis Current smoker- Primary Encounter for medical examination to establish care Pulmonary emphysema, unspecified emphysema type (HCC) Gastroesophageal reflux disease without esophagitis Esophageal reflux Lipid screening Screening for lipoid disorders Screening for diabetes mellitus Elevated blood pressure reading in office without diagnosis of hypertension Right upper quadrant abdominal pain Dyspepsia and disorder of function of stomach Dyspepsia and other specified disorders of function of stomach Tobacco abuse- Primary Tobacco use disorder Pulmonary emphysema, unspecified emphysema type (HCC) Elevated blood pressure reading in office without diagnosis of hypertension Gastroesophageal reflux disease without esophagitis Esophageal reflux Right upper quadrant abdominal pain Encounter for screening for malignant neoplasm of colon Encounter for screening for lung cancer Annual physical exam Routine general medical examination at a health care facility Dyspepsia and disorder of function of stomach Dyspepsia and other specified disorders of function of stomach Cigarette nicotine dependence without complication Gastroesophageal reflux disease without esophagitis- Primary Esophageal reflux Pulmonary emphysema, unspecified emphysema type (HCC) Dyspepsia and disorder of function of stomach Dyspepsia and other specified disorders of function of stomach Pulmonary emphysema, unspecified emphysema type (HCC)- Primary Gastroesophageal reflux disease without esophagitis Esophageal reflux Cigarette nicotine dependence without complication Prostate cancer screening Special screening for malignant neoplasm of prostate Encounter for screening for lung cancer Encounter for screening for malignant neoplasm of colon Dyspepsia and disorder of function of stomach Dyspepsia and other specified disorders of function of stomach Dyspepsia and disorder of function of stomach Dyspepsia and other specified disorders of function of stomach documented in this encounter [facility] Evaluation note Note Date & Type Note Facility Evaluation note Diagnosis Current smoker- Primary Encounter for medical examination to establish care Pulmonary emphysema, unspecified emphysema type (HCC) Gastroesophageal reflux disease without esophagitis Esophageal reflux Lipid screening Screening for lipoid disorders Screening for diabetes mellitus Elevated blood pressure reading in office without diagnosis of hypertension Right upper quadrant abdominal pain Dyspepsia and disorder of function of stomach Dyspepsia and other specified disorders of function of stomach Tobacco abuse- Primary Tobacco use disorder Pulmonary emphysema, unspecified emphysema type (HCC) Elevated blood pressure reading in office without diagnosis of hypertension Gastroesophageal reflux disease without esophagitis Esophageal reflux Right upper quadrant abdominal pain Encounter for screening for malignant neoplasm of colon Encounter for screening for lung cancer Annual physical exam Routine general medical examination at a health care facility Dyspepsia and disorder of function of stomach Dyspepsia and other specified disorders of function of stomach Cigarette nicotine dependence without complication Gastroesophageal reflux disease without esophagitis- Primary Esophageal reflux Pulmonary emphysema, unspecified emphysema type (HCC) Dyspepsia and disorder of function of stomach Dyspepsia and other specified disorders of function of stomach Pulmonary emphysema, unspecified emphysema type (HCC)- Primary Gastroesophageal reflux disease without esophagitis Esophageal reflux Cigarette nicotine dependence without complication Prostate cancer screening Special screening for malignant neoplasm of prostate Encounter for screening for lung cancer Encounter for screening for malignant neoplasm of colon Dyspepsia and disorder of function of stomach Dyspepsia and other specified disorders of function of stomach Chronic hand pain, left- Primary Cigarette nicotine dependence without complication Gastroesophageal reflux disease without esophagitis Esophageal reflux Pulmonary emphysema, unspecified emphysema type (HCC) documented in this encounter [facility] Summary Purpose Family History No Family History Records FoundNo Family History Records FoundNo Family History Records Found Advance Directives No Advanced Directives Records FoundNo Advanced Directives Records FoundNo Advanced Directives Records Found Additional Source Comments (unrecognized sect ion and content) No Status Records FoundNo Status Records FoundNo Status Records Found INFORMATION SOURCE (unrecogn ized section and content) DATE CREATED AUTHOR 08/20/2020 [facility] DATE CREATED AUTHOR AUTHOR'S ORGANIZ ATION 07/12/2021 [facility] DATE CREATED AUTHOR AUTHOR'S ORGANIZ ATION 05/18/2025 [facility] Care Teams (unrecognized sec tion and content) Probation And Parole Officer Relationship Specialty Start Date End Date Shaikh Cain MD [address] [place] [id number] [facility] 04/25/24 Jeramie Mendez MD [address] [place] [phone] PCP - General Family Medicine 08/29/24 Jessica Waldrop NP [address] [place] [id number] Nurse Practitioner Family Medicine 08/29/24 Probation And Parole Officer Relationship Specialty Start Date End Date Shaikh Cani MD [address] [place] [phone] PCP - [facility] 04/25/24 Jeramie Mendez MD [address] [place] [phone] PCP - General Family Medicine 08/29/24 Jessica Waldrop NP [address] [place] [phone] Nurse Practitioner [facility] 08/29/24 Probation And Parole Officer Relationship Specialty Start Date End Date Shaikh Cain MD [address] [place] [phone] [facility] 04/25/24 Jeramie Mendez MD [address] [place] [phone] PCP - General [facility] 08/29/24 Jessica Waldrop NP [address] [place] [phone] Nurse Practitioner [facility] 08/29/24 Probation And Parole Officer Relationship Specialty Start Date End Date Shaikh Cain MD [address] [place] [phone] [facility] 04/25/24 Jeramie Mendez MD [address] [place] [phone] PCP - General Family Medicine 08/29/24 Jessica Waldrop NP [address] [place] [phone] Nurse Practitioner Family Medicine 08/29/24 Probation And Parole Officer Relationship Specialty Start Date End Date Shaikh Cain MD [address] [place] [address] PCP - [facility] 04/25/24 Jeramie Mendez MD [address] [place] [address] PCP - General [facility] 08/29/24 Jessica Waldrop NP [address] [place] [phone] Nurse Practitioner [facility] 08/29/24 Probation And Parole Officer Relationship Specialty Start Date End Date Shaikh Cain MD [address] [place] [phone] [facility] 04/25/24 Jeramie Mendez MD [address] [place] [phone] PCP - [facility] 08/29/24 Jessica Waldrop NP [address] [place] [phone] Nurse Practitioner [facility] 08/29/24 Probation And Parole Officer Relationship Specialty Start Date End Date Shaikh Cain MD [address] [place] [phone] PCP [facility] 04/25/24 Jeramie Mendez MD [address] [place] [address] PCP - General [facility] 08/29/24 Jessica Waldrop NP [address] [place] [phone] Nurse Practitioner Family Medicine 08/29/24 Probation And Parole Officer Relationship Specialty Start Date End Date Shaikh Cain MD [address] [place] [phone] PCP - [facility] 04/25/24 Jeramie Mendez MD [address] [place] [phone] PCP - General [facility] 08/29/24 Jessica Waldrop NP [address] [place] [phone] Nurse Practitioner Family Medicine 08/29/24 Reason for Visit (unrecogniz ed section and content) Reason Comments Follow-up Reason Onset Date Comments Med Refill 04/24/2025 FOR RECORDS PERTAINING TO PATIENTS WHO ARE [...] BE BASED ON THE PRIMARY CLINICAL RECORDS. [employer] provides no warranty or guarantee of the accuracy or completeness of information in this document.
--- OUTSIDE RECORDS SUMMARY | 2025-07-18 08:46 | XMS_ITS | Clinical Summary ---
Author Organization [facility] Address [address] [place] [address] Care Team Providers Care Correctional Captain Name Role Phone Shaikh MARY ELLEN Cain Unavailable [phone] Jeramie Mendez MD Primary Care Provider [phone] Jessica Waldrop NP Unavailable Allergies Active Allergy Reactions Criticality Noted Date Comments Penicillins 07/25/2022 Medications albuterol HFA (Ventolin HFA) 90 mcg/act inhalerIndicatio ns:Pulmonary emphysema, unspecified emphysema type (HCC) Inhale 2 puffs every 4 (four) hours if needed for wheezing 18 g 1 4 09/14/20 25 Active tiotropium (Spiriva Respimat) 2.5 MCG/ACT inhalerIndicatio ns:Pulmonary emphysema, unspecified emphysema type (HCC) Inhale 2 puffs Daily 1 each 2 5 Active Fluticasone-Salm eterol (Advair Diskus) 250-50 MCG/ACT aerosol powderIndication s:Pulmonary emphysema, unspecified emphysema type (HCC) Inhale 1 puff in the morning and 1 puff before bedtime. Rinse mouth after use. 60 each 2 5 Active pantoprazole (ProtoNix) 40 MG EC tabletIndication s:Dyspepsia and disorder of function of stomach Take 1 tablet (40 mg) by mouth in the morning and 1 tablet (40 mg) before bedtime. 180 tablet 07/23/20 Active Active Problems Problem Noted Date Diagnosed Date Chronic hand pain, left 05/16/2025 Assessment & Plan (05/16/2025 2:31 PM EDT): Check xray uric acid and RA Cigarette nicotine dependence without complicati on 03/16/2025 Assessment & Plan (05/16/2025 7:03 AM EDT): The patient has been advised of the risks of continued smoking: stroke, AR, all forms of cancer, lung disease, and . Options for quitting smoking include: cold turkey, hypnosis, acupuncture, nicotine replacement meds (gum, lozenges, and patches), Buproprion, and Varenicline. At this time pt is encouraged to evaluate their goals for wanting to quit smoking, and reach out to provider when ready to start this process Assessment & Plan (03/16/2025 6:53 AM EDT): The patient has been advised of the risks of continued smoking: stroke, AR, all forms of cancer, lung disease, and . Options for quitting smoking include: cold turkey, hypnosis, acupuncture, nicotine replacement meds (gum, lozenges, and patches), Buproprion, and Varenicline. At this time pt is encouraged to evaluate their goals for wanting to quit smoking, and reach out to provider when ready to start this process Prostate cancer screening 03/16/2025 Encounter for screening for malignant neoplasm o f colon 02/16/2024 Assessment & Plan (02/16/2024 2:44 PM EDT): Never had colon cancer screening - ordered cologuard Encounter for screening for lung cancer 02/16/20 Overview (03/30/2025): CT lung negative 03/30/25 Assessment & Plan (03/16/2025 6:58 AM EDT): Patient meets requirements for low dose CT scan for lung cancer screening: age 55-80, patient is a current smoker or has quit in the last 15 years. Smoking history is > or equal to 30 pack-year. If needed the patient is able or willing to receive treatment. The patient is not currently exhibiting any s/s of lung cancer. We have discussed the benefits as well as harms of screening, follow up testing if needed, false positive rates. We have also discussed that this type of CT scan has less radiation exposure than a traditional lung CT scan. We have also discussed that it is important to follow with annual screening for this. The patient has also been counseled on the importance of smoking cessation. Assessment & Plan (02/16/2024 2:46 PM EDT): Smoking since age 17 years Smoking for over 40 plus years. Has more than 30 pack years of smoking. Will need LDCT for lung cancer screening Risks/benefits or lung cancer screening discussed with patient. Discussed and counseled on smoking cessation. COPD (chronic obstructive pulmonary disease) wit h emphysema 12/29/2023 Assessment & Plan (05/16/2025 7:03 AM EDT): Current meds; albuterol, and incruse Urged to quit smoking Assessment & Plan (03/16/2025 6:51 AM EDT): Current meds; albuterol, and incruse Assessment & Plan (09/14/2024 11:22 AM EST): Currently uses Incruse daily and Albuterol once weekly. Current 0.5ppd smoker. Patient encouraged to quit smoking but not interested in it Used to be on symbicort. Current smoker. Has morning cough and HARKINS. Ordered PFTs - did not get it done. Assessment & Plan (02/16/2024 2:40 PM EDT): Used to be on symbicort. Current smoker. Has morning cough and HARKINS. Ordered PFTs - did not get it done. Use albuterol as needed Patient encouraged to quit smoking but not interested in it Started in [place] for COPD - Patient counseled and educated on adverse effects, drug interactions and to reach out to office/pharmacy if questions or concerns related to new medications. Assessment & Plan (12/29/2023 3:02 PM EST): Used to be on symbicort. Current smoker. Has morning cough and HARKINS. Order PFTs. Use albuterol as needed Patient encouraged to quit smoking. Gastroesophageal reflux disease without esophagi tis 12/29/2023 Assessment & Plan (05/16/2025 2:32 PM EDT): Recommendations: freq small meals, nothing to eat or drink at least 2 hours prior to bed, limit caffeine, alcohol, as well as spicy foods Meds to limit or avoid if possible: NSAIDS Elevate HOB if possible Current med: pantoprazole Has been referred to GI on 03/16/25 Gave pt phone number to GI, explained to have scopes Discussed barretts and ulcer etc Assessment & Plan (03/16/2025 6:52 AM EDT): Recommendations: freq small meals, nothing to eat or drink at least 2 hours prior to bed, limit caffeine, alcohol, as well as spicy foods Meds to limit or avoid if possible: NSAIDS Elevate HOB if possible Current med: pantoprazole Assessment & Plan (09/14/2024 11:21 AM EST): Currently taking Prontonix. States he feels symptoms are well controlled at this time. Was previously referred to GI for EGD- pt did not follow up. Is not interested at this time. Will revisit at next OV Assessment & Plan (02/16/2024 2:43 PM EDT): Likely dyspepsia and GERD responsible for his pain as using PPI helped in the past. Symptoms improved with Protonix but still has break through symptoms on it Advised on lifestyle/dietary modifications. Encourage smoking cessation Will increase protonix q12 Refer to GI provider for EGD Assessment & Plan (12/29/2023 3:03 PM EST): Likely dyspepsia and GERD responsible for his pain as using PPI helped in the past. Resume Elevated blood pressure read ing in office without diagnosis of hypertension 12/29/2023 Assessment & Plan (02/16/2024 2:40 PM EDT): No prior hx of HTN. Asymptomatic. Monitor for now. Above goal today again but did not measure his BP at home. Patient asked again and reiterated to him the need to measure BP at home. Assessment & Plan (12/29/2023 3:01 PM EST): No prior hx of HTN. Asymptomatic. Monitor for now. Right upper quadrant abdominal pain 12/29/2023 Assessment & Plan (02/16/2024 2:42 PM EDT): Chronic abd pain, ongoing for years. Mostly in RUQ and umbilical region, improves with food and bowel movement. Denies constipation, diarrhea. Did not get US that was ordered last appointment. Printed the order and gave to patient and reiterated the need to get US performed. Assessment & Plan (12/29/2023 3:03 PM EST): Chronic abd pain, ongoing for years. Mostly in RUQ and umbilical region, improves with food and bowel movement. Denies constipation, diarrhea. Used to be on protonix and symptoms were controlled on it. Will get US liver, start back on protonix. Resolved Problems Problem Noted Date Diagnosed Date Resolved Date Tobacco abuse 02/16/2024 03/16/2025 Assessment & Plan (02/16/2024 2:41 PM EDT): Patient counseled on smoking/tobacco cessation. Patient educated on harmful effects of smoking cigarettes/tobacco including increased risk of cardiovascular diseases, chronic lung disease and multiple cancers. Not interested in quitting Annual physical exam 02/16/2024 025 Assessment & Plan (02/16/2024 2:48 PM EDT): Here for Wellness Exam. Patient here for Annual Wellness Exam. Reviewed medical, surgical and social hx. Reviewed medication list. Health related questions and concerns addressed and answered. Patient provided appropriate education on chronic medical conditions and prescription medications. Ordered Cologuard, LDCT for colon and lung cancer screening. Discussed and encouraged smoking cessation with patient. Current smoker 12/29/2023 03/16/2025 Assessment & Plan (12/29/2023 3:04 PM EST): Patient counseled on smoking/tobacco cessation. Patient educated on harmful effects of smoking cigarettes/tobacco including increased risk of cardiovascular diseases, chronic lung disease and multiple cancers. He is currently not ready to quit. [facility]/29/2023 03/16/2025 Assessment & Plan (12/29/2023 3:04 PM EST): New Patient, here to establish care. Reviewed medical, surgical and social hx. Reviewed available old records. Reviewed and updated medication list. Lipid screening 12/29/2023 03/16/2025 Assessment & Plan (12/29/2023 3:04 PM EST): Overweight, age over 40, screen for hld Screening for diabetes mellitus 12/29/2023 03/16/2025 Assessment & Plan (12/29/2023 3:04 PM EST): Overweight, age over 40, screen for T2 DM Dyspepsia and disorder of function of stomach 12/29/1903/16/2025 Assessment & Plan (12/29/2023 3:03 PM EST): Likely dyspepsia and GERD responsible for his pain as using PPI helped in the past. Resume Encounters Date Type Department Care Team Description 05/16/2025 2:00 PM EDT Office Visit [facility] [address] [place] [address] Dior Khan NP Chronic hand pain, left (Primary Dx); Cigarette nicotine dependence without complication; Gastroesophageal reflux disease without esophagitis; Pulmonary emphysema, unspecified emphysema type (HCC) 05/16/2025 Bamboo flowsheet [facility] [address] [place] [address] Dior Khan NP 04/24/2025 Refill [facility] [address] [place] [phone] Dior Khan NP Dyspepsia and disorder of function of stomach 04/24/2025 Telephone [facility] [address] [place] [phone] Dior Khan NP Med Refill from Last 3 Months Immunizations Immunization Administration Dates Next Due DTP 01/10/2021 Influenza, injectable, quadrivalent, preservativ e free 09/08/2019 Tdap 01/10/2021 Family History Medical History Relation Name Comments No Known Problems Father Lung cancer Mother Relation Name Status Comments Father Mother Social History Tobacco Use Types Packs/Day Years Used Date Smoking Tobacco: Every Day Cigarettes Passive Smoke Exposure: Current Smokeless Tobacco: Never Tobacco Cessation:Ready to Q uit: Not Asked; Counseling Given: Not Answered Alcohol Use Standard Drinks/Week Comments Never 0 (1 standard drink = 0.6 oz pur e alcohol) B1300 Health Literacy Answer Date Recor ded How often do you need to hav e someone help you when you read instructions, pamphlets, or other written material from your doctor or pharmacy? Never 09/11/2024 Social Connection and Isolat ion Panel [NHANES] Answer Date Recorded In a typical week, how many times do you talk on the phone with family, friends, or neighbors? More than three times a week 09/11/2024 How often do you get togethe r with friends or relatives? Once a week 09/11/2024 How often do you attend [facility] or spiritism services? Never 09/11/2024 Do you belong to any clubs o r organizations such as anglican groups, unions, fraternal or athletic groups, or school groups? No 09/11/2024 How often do you attend meet ings of the clubs or organizations you belong to? Never 09/11/2024 Are you , , di vorced, , never , or living with a partner? Living with partner 09/11/2024 AUDIT-C Answer Date Recorded Q1: How often do you have a drink containing alcohol? Never 09/11/2024 Q2: How many drinks containi ng alcohol do you have on a typical day when you are drinking? Patient does not drink Q3: How often do you have si x or more drinks on one occasion? Never 09/11/2024 Overall Financial Resource Strain (CARDIA) Answe r Date Recorded How hard is it for you to pa y for the very basics like food, housing, medical care, and heating? Somewhat hard 09/11/2024 PHQ-2 Answer Date Recorded Patient Health Questionnaire-2 Score 0 02/16/2024 [facility] - Occupational Stress Questionnaire Answer Date Recorded Do you feel stress - tense, restless, nervous, or anxious, or unable to sleep at night because your mind is troubled all the time - these days? Not at all 09/11/2024 Exercise Vital Sign Answer Date Recorde d On average, how many days pe r week do you engage in moderate to strenuous exercise (like a brisk walk)? 1 day 09/11/2024 On average, how many minutes do you engage in exercise at this level? 0 min 09/11/2024 Hunger Vital Sign Answer Date Recorded Within the past 12 months, y ou worried that your food would run out before you got the money to buy more. Sometimes true Within the past 12 months, t he food you bought just didn't last and you didn't have money to get more. Never true PRAPARE - Transportation Answer Date Re corded In the past 12 months, has l ack of transportation kept you from medical appointments or from getting medications? No 08/26 In the past 12 months, has l ack of transportation kept you from meetings, work, or from getting things needed for daily living? No 09/11/2024 Housing Stability Vital Sign Answer Saman e Recorded In the last 12 months, was t here a time when you were not able to pay the mortgage or rent on time? Yes 09/11/2024 In the past 12 months, how m any times have you moved where you were living? 0 09/11/2024 At any time in the past 12 m [facility], were you homeless or living in a jail (including now)? No 09/11/2024 Sex and Gender Information Value Date Recorded Sex Assigned at Not on file Legal Sex Male 7:20 PM EDT Gender Identity Not on file Sexual Orientation Not on file Last Filed Vital Signs Vital Sign Reading Time Taken Comments Blood Pressure 128/86 05/16/2025 2:11 PM EDT Pulse 80 05/16/2025 2:11 PM EDT Temperature 36.9 C (98.5 F) 05/16/2025 2:11 PM EDT Respiratory Rate 22 05/16/2025 2:11 PM EDT Oxygen Saturation 95% 05/16/2025 2:11 PM EDT Inhaled Oxygen Concentration - - Weight 80.4 kg (177 lb 3.2 oz) 05/16/2025 2:11 P M EDT Height 177.8 cm (5' 10 ) 09/14/2024 11:06 AM EST Body Mass Index 25.43 09/14/2024 11:06 AM EST Plan of Treatment Health Maintenance Due Date Last Done Comments CT Colonography 1967 Colonoscopy 1967 Colorectal Cancer Screening 1967 FIT-DNA 1967 FIT 1967 FOBT 1967 Sigmoidoscopy 1967 Influenza Vaccine (#1) 2025 09/08/2019 Insurance [employer] Care Teams Correctional Captain Relationship Specialty Start Date End Date Shaikh Cain MD [address] [place] [address] [facility] 04/25/24 Jeramie Mendez MD [address] [place] [address] PCP - General Family Medicine 08/29/24 Jessica Waldrop NP [address] [place] [address] Nurse Practitioner Family Medicine 08/29/24
--- OUTSIDE RECORDS SUMMARY | 2025-07-18 08:46 | XMS_ITS | Encounter Summary ---
Author Organization [facility] Address [address] [place] [address] Care Team Providers Care Domestic Violence Counselor Name Role Phone Unavailable Primary Care Provider Unavailabl e Encounter Details Date Type Department Care Team (Late st Contact Info) Description 04/24/2022 Abstract PATIENT ACUITY SCORE Social History Tobacco [...]
--- OUTSIDE RECORDS SUMMARY | 2025-07-18 08:46 | XMS_ITS | Encounter Summary ---
Author Organization [facility] Address [address] [place] [address] Care Team Providers Care Dowel Inserting Machine Operator Name Role Phone Shaikh MARY ELLEN Cain Unavailable [phone] Jeramie Mendez MD Primary Care Provider Jessica Waldrop NP Unavailable [phone] Encounter Details Date Type Department Care Team (Late st Contact Info) Description 03/30/2025 Results Follow-Up [facility] [address] [facility] [place] [place] [phone] Olivia Goodwin MA CT LUNG SCREENING LOW DOSE Social History Tobacco Use Types Packs/Day Years Used Date Smoking Tobacco: Every Day Cigarettes Passive Smoke Exposure: Current Smokeless Tobacco: Never Alcohol Use Standard Drinks/Week Comments Never 0 [...] week 09/11/2024 How often do you attend [facility] or orthodoxy services? Never 09/11/2024 Do you belong to any clubs o r organizations such as quaker groups, unions, fraternal or athletic groups, or [...] Recorded Patient Health Questionnaire-2 Score 0 02/16/2024 [facility] - Occupational Stress Questionnaire Answer Date Recorded [...] any time in the past 12 m [facility], were you homeless or living in a halfway (including now)? No 09/11/2024 Sex and Gender Information Value Date Recorded Sex Assigned at Not on file Legal Sex Male 7:20 PM EDT Gender Identity Not on file Sexual Orientation Not on file documented as of this encounter Plan of Treatment Not on file documented as of this encounter Visit Diagnoses Not on filedocumented in this encounter Care Teams Dowel Inserting Machine Operator Relationship Specialty Start Date End Date Shaikh Cain MD [address] [place] [address] PCP - [facility] 04/25/24 Jeramie Mendez MD [address] [place] [address] PCP - General Family Medicine 08/29/24 Jessica Waldrop NP [address] [place] [address] Nurse Practitioner Family Medicine 08/29/24 documented as of this encounter
--- OUTSIDE RECORDS SUMMARY | 2025-07-18 08:46 | XMS_ITS | Encounter Summary ---
Author Organization [facility] Address [address] [place] [address] Care Team Providers Care Gravity Prospecting Observer Helper Name Role Phone Shaikh MARY ELLEN Cain Primary Care Provider [phone] Shaikh MARY ELLEN Cain Unavailable [phone] Jeramie Mendez MD Primary Care Provider Jessica Waldrop NP Unavailable Encounter Details Date Type Department Care Team (Late st Contact Info) Description 02/16/2024 Orders Only [facility] [address] [place] [phone] Shaikh Cain MD [address] [place] [address] Social History Tobacco Use Types Packs/Day Years Used Date Smoking Tobacco: Every Day Cigarettes Passive Smoke Exposure: Current Smokeless Tobacco: Never Alcohol Use Standard Drinks/Week Comments Never 0 (1 standard drink = 0.6 oz pur e alcohol) PHQ-2 Answer Date Recorded Patient Health Questionnaire-2 Score 0 02/16/2024 Sex and Gender Information Value Date Recorded Sex Assigned at Not on file Legal Sex Male 7:20 PM EDT Gender Identity Not on file Sexual Orientation Not on file documented as of this encounter Functional Status * Over the past 2 weeks, how often have you been bothered by any of the following problems? Question Answer Date of Assessment Author Little interest or pleasure in doing things Not at all 02/16/2024 2:26 PM EDT Nazario Worrell M A Feeling down, depressed, or hopeless Not at all 02/16/2024 2:26 PM EDT Nazario Worrell M A Patient Health Questionnaire -2 Score 0 02/16/2024 2:26 PM EDT Nazario Worrell M A documented as of this encounter Plan of Treatment Not on file documented as of this encounter Visit Diagnoses Not on filedocumented in this encounter Care Teams Gravity Prospecting Observer Helper Relationship Specialty Start Date End Date Shaikh Cain MD [address] [place] [phone] PCP - General Internal Medicine 12/29/23 08/28/24 Shaikh Cain MD [address] [place] [address] PCP - [facility] 04/25/24 Jeramie Mendez MD [address] [place] [address] PCP - General Family Medicine 08/29/24 Jessica Waldrop NP [address] [place] [address] Nurse Practitioner Family Medicine 08/29/24 documented as of this encounter
--- OUTSIDE RECORDS SUMMARY | 2025-07-18 08:46 | XMS_ITS | Encounter Summary ---
Author Organization [facility] Address [address] [place] [address] Care Team Providers Care Production Sound Mixer Name Role Phone Unavailable Primary Care Provider Unavailabl e Encounter Details Date Type Department Care Team (Late st Contact Info) Description 10/25/2021 Abstract PATIENT ACUITY SCORE Social History Tobacco [...]
--- OUTSIDE RECORDS SUMMARY | 2025-07-18 08:46 | XMS_ITS | Clinical Summary ---
Author Organization [facility] Address [address] [facility] [place] [address] Care Team Providers Care Cooker Meal Name Role Phone Unavailable Primary Care Provider Unavailabl e Source Comments The following information is NOT included in Care Everywhere downloads:Psychiatric notes, ECG results, Cardiac Rehab notes, Pulmonary Function notes, data from SmartForms (includes but not limited toPregnancy data,audiograms, eye exams, pre-surgical evaluation notes, well-child exam data).[facility] Immunizations Immunization Administration Dates Next Due DTP (CVX=01) 01/10/2021 Influenza, injectable, quadr ivalent, preservative free (KDN=420) 09/08/2019 Social History Tobacco Use Types Packs/Day Years Used Date Smoking Tobacco: Never Assessed Sex and Gender Information Value Date Recorded Sex Assigned at Not on file Legal Sex Male 2:04 AM EDT Gender Identity Not on file Sexual Orientation Not on file Plan of Treatment Health Maintenance Due Date Last Done Comments Colonoscopy 1967 HIV Test 1982 Hepatitis C Antibody 1985 Tdap Booster 1985 Hepatitis A (HAV) Vaccine (optional start 19+ years) 0 1986 Hepatitis B (HBV) Vaccine (1 of 3 - 19+ 3-dose series) 1986 Tetanus (Td or Tdap) Booster 1986 Cholesterol 2002 CRC Screening 01/31/2012 Cologuard (Stool DNA) 01/31/2012 FIT 01/31/2012 Pneumococcal Vaccine(s) (50+ yrs) (1 of 1 - PCV) 01/30 Shingles (RZV) Vaccine (1 of 2) 2017 COVID-19 Vaccine (1 - 2023- season) 2025 Influenza Vaccine (#1) 2025 09/08/2019 Insurance [employer] on file
--- OUTSIDE RECORDS SUMMARY | 2025-07-18 08:46 | XMS_ITS | Encounter Summary ---
Author Organization [facility] Address [address] [place] [address] Care Team Providers Care [place] Clerk Name Role Phone Shaikh MARY ELLEN Cain Primary Care Provider Shaikh MARY ELLEN Cain Unavailable [phone] Jeramie Mendez MD Primary Care Provider [phone] Jessica Waldrop NP Unavailable Encounter Details Date Type Department Care Team (Late st Contact Info) Description 02/23/2024 Clinisync Result Encounter [facility] Department Unsolicited Shaikh Cain MD [address] [place] [address] Social History Tobacco Use Types Packs/Day Years [...] on file documented as of this encounter Procedures Procedure Name Priority Date/Time Associated Diagnosis Comments CT LUNG SCREENING LOW DOSE 02/23/2024 2:49 PM EDT documented in this encounter Results * CT LUNG SCREENING LOW DOSE (02/23/2024 2:49 PM EDT) Anatomical Region Laterality Modality Other 02/23/2024 2:49 PM EDT Narrative 02/23/2024 2:52 [place] [address] CT Scan Report Signed Patient: EVANGELINA RECINOS MR#: [id number] : 1965 Acct:[id number] Age/Sex: 59 / M ADM Date: 02/23/24 Loc: CT Attending Dr: Shaikh Payton Devlin Ordering Physician: Shaikh Claus Cain Date of Service: 02/23/24 Procedure(s): CT lung screening low-dose Accession Number(s): [id number] cc: Shaikh Claus Cain [place] [id number] Patient Name: EVANGELINA RECINOS MRN: [id number] date: 1965 Sex: M Assigned Patient Location: CT Current Patient Location: CT Accession/Order Number: [id number] Exam Date: 02/23/2024 14:00 Report Date: 02/23/2024 14:49 At the request of: SHAIKH PAYTON Procedure: CT lung screening low-dose EXAMINATION: CT lung screening low-dose HISTORY: screening for lung cancer Z12.2, nicotine dependence F17.210 COMPARISON: No relevant comparison available. TECHNIQUE: Axial, Coronal, and Sagittal images were created without the administration of IV contrast material. Dose reduction techniques were achieved by using automated exposure control and/or adjustment of mA and/or kV according to patient size and/or use of iterative reconstruction technique. FINDINGS: LUNGS: Mild centrilobular and paraseptal emphysema with an upper lobe predominance. Scattered punctate calcified and noncalcified pulmonary nodules, nonspecific. Irregular spiculated 1.1 x 0.8 cm soft tissue density identified in the left lower lobe axial image 125. 2 areas of groundglass attenuation are identified in the right lower lobe axial image 82 measuring 1.1 and 1.2 cm in diameter PLEURA: No mass, effusion, or pneumothorax. VASCULATURE: No abnormality. SUE: No mass or pathologic adenopathy. MEDIASTINUM: No mass or pathologic adenopathy. CARDIAC: No enlargement, pericardial thickening, or significant calcification. CORONARY ARTERIES: Coronary calcifications are mild. AORTA: No aneurysm or dissection. CHEST WALL: No mass or axillary adenopathy BONES: No bone lesion or fracture. Moderate degenerative spondylosis. Cervical fusion hardware LIMITED ABDOMEN: No suspicious findings. Limited images of the upper abdomen. OTHER: Negative. CT/CT lung screening low-dose IMPRESSION: LUNG SCREENING: Lung-RADS Category 3- Probably benign. Probably benign finding(s)- short term follow up suggested; includes nodules with a low likelihood of becoming a clinically active cancer. Six month LDCT. Electronically authenticated by: EVANGELINA MOLINA Date: 02/23/2024 14:49 Dictated By: Evangelina Molina M.D. Signed By: 02/23/24 1452 DD/ 1449 TD/TT: Thermodynamic Physicist: Procedure Note Radiology, Radiologist, MD - 02/23/2024 [place] [address] CT Scan Report Signed Patient: EVANGELINA RECINOS GMR#: [id number] : 1965Acct:[id number] Age/Sex: 59 / MADM Date: 02/23/24 Loc: CT Attending Dr: Shaikh Payton Devlin Ordering Physician: Shaikh Claus Cain Date of Service: 02/23/24 Procedure(s): CT lung screening low-dose Accession Number(s): [id number] cc: Shaikh Claus Cain [place] [address] Patient Name: EVANGELINA RECINOS MRN: [id number] date: 1965 Sex: M Assigned Patient Location: CT Current Patient Location: CT Accession/Order Number: [id number] Exam Date: 02/23/2024 14:00 Report Date: 02/23/2024 14:49 At the request of: SHAIKH PAYTON Procedure: CT lung screening low-dose EXAMINATION: CT lung screening low-dose HISTORY: screening for lung cancer Z12.2, nicotine dependence F17.210 COMPARISON: No relevant comparison available. TECHNIQUE: Axial, Coronal, and Sagittal images were created without the administration of IV contrast material. Dose reduction techniques were achieved by using automated exposure control and/or adjustment of mA and/or kV according to patient size and/or use of iterative reconstruction technique. FINDINGS: LUNGS: Mild centrilobular and paraseptal emphysema with an upper lobe predominance. Scattered punctate calcified and noncalcified pulmonarynodules, nonspecific. Irregular spiculated 1.1 x 0.8 cm soft tissue densityidentified in the left lower lobe axial image 125. 2 areas of groundglass attenuationare identified in the right lower lobe axial image 82 measuring 1.1 and 1.2 cmin diameter PLEURA: No mass, effusion, or pneumothorax. VASCULATURE: No abnormality. SUE: No mass or pathologic adenopathy. MEDIASTINUM: No mass or pathologic adenopathy. CARDIAC: No enlargement, pericardial thickening, or significantcalcification. CORONARY ARTERIES: Coronary calcifications are mild. AORTA: No aneurysm or dissection. CHEST WALL: No mass or axillary adenopathy BONES: No bone lesion or fracture. Moderate degenerative spondylosis.Cervical fusion hardware LIMITED ABDOMEN: No suspicious findings. Limited images of the upperabdomen. OTHER: Negative. CT/CT lung screening low-dose IMPRESSION: LUNG SCREENING: Lung-RADS Category 3- Probably benign. Probably benign finding(s)- short term follow up suggested; includes nodules with a low likelihood of becoming a clinically active cancer. Six month LDCT. Electronically authenticated by: EVANGELINA MOLINA Date: 02/23/2024 14:49 Dictated By: Evangelina Molina M.D. Signed By:02/23/24 1452 DD/ 1449 TD/TT: Thermodynamic Physicist: us Shaikh Payton [facility] Final Result documented in this encounter Visit Diagnoses Not on filedocumented in this encounter Care Teams [place] Clerk Relationship Specialty Start Date End Date Shaikh Cain MD [address] [place] [phone] PCP - General Internal Medicine 12/29/23 08/28/24 Shaikh Cain MD [address] [place] [phone] PCP - [facility] 04/25/24 Jeramie Mendez MD [address] [place] [phone] PCP - General Family Medicine 08/29/24 Jessica Waldrop NP [address] [place] [phone] Nurse Practitioner Family Medicine 08/29/24 documented as of this encounter
--- NOTE | 2025-07-18 09:31 | ED.GENADUL1 ---
HPI HPI - General Adult General Stated complaint: chest pain Time Seen by Provider: 07/18/25 09:31 History of Present Illness HPI narrative: The patient brought to us by the for chest pain apparently in the waiting room the patient fell on the floor became unresponsive by the time he got to the waiting room the patient had no pulse and CPR was started. According to the patient the patient has been having chest pain for few days but today it was worse and apparently have a history of smoking cigarettes and history of COPD but no other past medical history Related Data Home Medications ?Medication ?Instructions ?Recorded ?Confirmed No Known Home Medications 04/19/24 04/19/24 Allergies Allergy/AdvReac Type Severity Reaction Status Date / Time Penicillins Allergy Unknown Verified 04/19/24 00:32 Opioid HPI Opioid Management Most Recent Opioid Data: Last Pain Scale 10 04/19/24, 01:12 Exam Narrative Exam Narrative: On arrival the patient had no pulse CPR was started there was no signs of trauma Medical Decision Making MDM Narrative Medical decision making narrative: Upon arrival to CPR started the patient was connected to the monitor after which showed that the patient have a rhythm of V. tach for which shock was preferred Intraosseous was placed and the patient had a stroke delivered 1 epinephrine initially provided and we followed the ACLS protocol 8:25 pm , continue self check pulse every 2 minutes The patient had a detailed ACLS protocol used including initially shock delivered due to V-fib then CPR continued for 2 minutes and then another shock delivered and the patient was provided also with epinephrine after placement of intraosseous in the right lower extremity During the CPR the patient is Ambu bagged The patient during CPR received amiodarone 300 mg and another amiodarone 150 mg after he was detected be in V-fib more than 1 time The patient also was started amiodarone drip after the second dose of amiodarone Levophed started if the patient had a pulse and the blood pressure was 80 systolic initially it started at 5 mcg going up to 10 mcg Patient had also a liter of fluid going EKG initially showed that the patient have a STEMI and he started waking up moving his upper extremities we did discuss the case with who activated the [employer]crete Building [employer] Patient then was intubated and sedated initially with the etomidate propofol and fentanyl The patient then was after intubation had a central line placed on the right internal jugular he also had NG tube placed they all showed adequate placement on the x-ray The patient also had a heparin drip after bolus started for ACS protocol the patient also with the amiodarone drip had propofol drip and also had a Levophed drip Brilinta given to him 180 mg through the NG tube at the bedside was updated and she mentioned that she will contact the son Critical Care Time Critical Care Time Critical Care Time: Yes (90 minutes at least in between the CPR as well as the multiple procedures ) Total Critical Care Time: 90 Attestation: The patient presented with a critical condition initially he was arrested with a CPR started initiated to detect V. tach and the patient had multiple procedures done at the bedside including central line as well as intubation and NG tube placement Discharge Plan Discharge Clinical Impression: Cardiac arrest, ST elevation VA (STEMI) Patient Disposition: [facility] Time of Disposition Decision: 09:39 Discharge location: [facility] Dr Macdonald Discharge Date/Time: 07/18/25 09:51
== END 2025-07-18 09:51 | disposition short-term general hospital (02) ==
PROVIDERS: Emergency Provider Emergency Medicine
DX: I21.3 ST elevation (STEMI) myocardial infarction of unspecified site (principal); I46.2 Cardiac arrest due to underlying cardiac condition; F17.210 Nicotine dependence, cigarettes, uncomplicated; J44.9 Chronic obstructive pulmonary disease, unspecified
CPT/HCPCS: 31500; 36556; 71045; 92950; 94002; 99285; J0169; J0282; J0283; J1644; J2704; J3010

== ENCOUNTER 2025-09-12 21:25 | Emergency (ER) | payer OTHER, SELFPAY ==
[2025-09-12 21:29] VITALS: BP 150/77; PULSE 83; TEMP 36.6; O2SAT 96; BMI 24.4
--- NOTE | 2025-09-12 21:56 | ED.ABDPAIN1 ---
HPI - Abdominal Pain General Chief Complaint: Abdominal Pain Stated Complaint: Abdominal Pain Time Seen by Provider: 09/12/25 21:51 Source: patient Mode of arrival: walk-in History of Present Illness HPI narrative: presents complaining of right lower quad pain that started this afternoon. No nausea, vomiting or diarrhea. No fever or urinary symptoms. States normal BM Related Data Home Medications ?Medication ?Instructions ?Recorded ?Confirmed albuterol sulfate 90 mcg/actuation 2 puff inhalation Q4H PRN 09/12/25 09/12/25 aerosol inhaler shortness of breath or wheezing aspirin 81 mg chewable tablet 1 tab PO DAILY 09/12/25 09/12/25 atorvastatin 80 mg tablet 80 mg PO QPM 09/12/25 09/12/25 clopidogrel 75 mg tablet 75 mg PO DAILY 09/12/25 09/12/25 fluticasone 250 mcg-salmeterol 50 1 inh inhalation Q12H 09/12/25 09/12/25 mcg/dose blistr powdr for inhalation (Advair Diskus) metoprolol succinate 25 mg 12.5 mg PO QPM 09/12/25 09/12/25 tablet,extended release 24 hr nitroglycerin 0.4 mg sublingual 0.4 mg sublingual Q5M PRN chest 09/12/25 09/12/25 tablet pain pantoprazole 40 mg tablet,delayed 40 mg PO BID 09/12/25 09/12/25 release spironolactone 25 mg tablet 25 mg PO DAILY 09/12/25 09/12/25 tiotropium bromide 2.5 2 puff inhalation DAILY 09/12/25 09/12/25 mcg/actuation mist for inhalation (Spiriva Respimat) valsartan 80 mg tablet 80 mg PO QPM 09/12/25 09/12/25 Allergies Allergy/AdvReac Type Severity Reaction Status Date / Time Penicillins Allergy Unknown Verified 04/19/24 00:32 Review of Systems ROS Status of ROS 10 or more systems reviewed and unremarkable except as noted in history and below PFSH PFSH Social History Little interest or pleasure in doing things: not at all Feeling down, depressed, or hopeless: not at all Exam Constitutional Vital Signs, click to edit/add: Last Vital Signs Temp 97.8 F 09/12/25 21:29 Pulse 83 09/12/25 21:29 Resp 20 09/12/25 21:29 BP 150/77 H 09/12/25 21:29 Pulse Ox 96 09/12/25 21:29 O2 Del Method Room Air 09/12/25 21:29 Common normals: no apparent distress, average body habitus, oriented x3, no limitations, healthy appearing, alert and well nourished [facility] Common normals: normocephalic and head/scalp atraumatic Respiratory Common normals: normal respiratory effort, no retractions, no use of accessory muscles and clear to auscultation bilaterally Cardio Common normals: regular rate, regular rhythm, S1 normal heart sound and S2 normal heart sound GI Common normals: Normal to inspection, nondistended, normoactive bowel sounds present and soft to palpation Other: mild RLQ tenderness. No guarding Extremity Common normals: normal to inspection and full ROM Neuro Common normals: oriented x3, CN's II-XII intact bilaterally, moves all extremities and no focal motor deficits Psych Appearance: grossly normal Course Vital Signs Vital signs: Vital Signs Temperature 97.8 F 09/12/25 21:29 Pulse Rate 83 09/12/25 21:29 Respiratory Rate 20 09/12/25 21:29 Blood Pressure 150/77 H 09/12/25 21:29 Pulse Oximetry 96 09/12/25 21:29 Oxygen Delivery Method Room Air 09/12/25 21:29 Temperature 97.8 F 09/12/25 21:29 Pulse Rate 83 09/12/25 21:29 Respiratory Rate 20 09/12/25 21:29 Blood Pressure 150/77 H 09/12/25 21:29 Pulse Oximetry 96 09/12/25 21:29 Oxygen Delivery Method Room Air 09/12/25 21:29 MDM - Abdominal Pain MDM Narrative Medical decision making narrative: patient presents complaining of RLQ pain that started this evening and continues. No associated nausea, vomiting or urinary symptoms. Labs, IV fluids and CT ordered. When I returned from suturing another patient nursing states he was feeling better and signed out AMA Discharge Plan Discharge Stand Alone Forms: Portal Instructions Chief Complaint: Abdominal Pain Clinical Impression: Abdominal pain Patient Disposition: Left Against Medical Advice Prescriptions / Home Meds: No Action albuterol sulfate 90 mcg/actuation HFA aerosol inhaler 2 puff INHALATION Q4H PRN (Reason: shortness of breath or wheezing) aspirin 81 mg tablet,chewable 1 tab PO DAILY atorvastatin 80 mg tablet 80 mg PO QPM clopidogrel 75 mg tablet 75 mg PO DAILY fluticasone propion-salmeterol [Advair Diskus] 250-50 mcg/dose blister with device 1 inh INHALATION Q12H metoprolol succinate 25 mg tablet extended release 24 hr 12.5 mg PO QPM nitroglycerin 0.4 mg tablet, sublingual 0.4 mg sublingual Q5M PRN (Reason: chest pain) pantoprazole 40 mg tablet,delayed release (DR/EC) 40 mg PO BID spironolactone 25 mg tablet 25 mg PO DAILY Spiriva Respimat 2.5 mcg/actuation mist 2 puff INHALATION DAILY valsartan 80 mg tablet 80 mg PO QPM Print Language: Afghan Referrals: Physician,Non-Staff, MD [Primary Care Provider] - 1 week
--- OUTSIDE RECORDS SUMMARY | 2025-09-12 22:00 | XMS_ITS | CCD ---
Author Organization [facility] Care Team Providers Care [employer] Employee Name Role Phone DIOR KHAN Primary Care Unavailable YOLI GRADY Admitting Unavailable YOLI GRADY Attending Unavailable YOLI GRADY Consulting Unavailable Payton HYDE, Unavailable Jeramie Mendez MD Primary Care Provider Palma STAFF NURSE MIDWIFE, Digna Unavailable Palma STAFF NURSE MIDWIFE, Digna Unavailable DIOR KHAN Attending Unavailable DIOR KHAN Attending Unavailable DIGNA WALDROP Attending [facility], [facility] Primary Care Provider Adonis Macdonald MD Attending Provider Adonis Macdonald MD Other Provider Adonis Macdonald MD Admit Provider Josh FOSTER, Jesica Other Provider Unavailable Jaimie FOSTER, Sammi Other Provider Unavailable Irish RN, Juliette Other Provider Unavailable Aicha RN, Carol Other Provider Unavailable Bunny RNIliana Other Provider Unavailable Vicki Nash RN Other Provider Unavailable Luba Espinoza MD Other Provider Ankur Abbott DO Other Provider Rashawn Das MD Other Provider [phone] Noah Romero DO Other Provider Mehul Archer MD Other Provider Carolyn Armstrong MD Other Provider Kimani Cui DO Other Provider Unavailab Larry Hickey MD Other Provider Unavailable Laureen Min APRN Other Provider Fei Bustos MD Other Provider Debby Moore MD Other Provider Unavailable Britney Garnett MD Other Provider Kimani Motta DO Other Provider Diamond Grullon MD Other Provider Lc Pereira MD Other Provider Claudine STAFF NURSE MIDWIFE-C, Fe Garcia Other Provider Soo Little APRN Other Provider Unavailable Jorge Alberto Montero MD Other Provider Stephen HYDE, Kee Other Provider Clarence HYDE, Andreina Other Provider Unavailable Bravo Almanza DO Other Provider Ekaterina Marie APRN Other Provider Henrique Ling DO Other Provider Last HYDE, Rome Vergara Other Provider Lina Grady APRN Other Provider Donna Hightower APRN Other Provider Britta HYDE, Javier Other Provider Unavailable Isael Trevino MD Other Provider Lalito Jaquez DO Other Provider Matias Easton MD Other Provider Ravi Nino MD Other Provider [phone] Mayra East APRN Other Provider Unavailable Julissa Rosales MD Other Provider Wilberto Vallejo MD Other Provider [phone] Milton HYDE, Larry Valle Other Provider Ethna Velarde MD Other Provider Mary Grace Sheikh APRN Other Provider [phone] Inna Brewer APRN Other Provider Ray Parsons MD Other Provider Mimi Allen RN Other Provider Unavailable Ajit Hirsch MD Attending Provider Ajit Hirsch MD Other Provider [phone] PROVIDER, UNKNOWN Attending Unavailable PROVIDER, UNKNOWN Admitting Unavailable Adonis Macdonald Attending Unavailable Renae, Adonis Admitting Unavailable Jesica Moreno Consulting Unavailable [facility] Unavailable Sammi Etienne Consulting Unavailable Juliette Coburn Consulting Unavailable Carol Holcomb Consulting Unavailable Iliana Hollis Consulting Unavailable Vicki Nash Consulting Unavailable Luba Espinoza Consulting Unavailable Ankur Abbott Consulting Unavailable Rashawn Das Consulting Unavailable Noah Romero Consulting UnavailMehul Angeles Consulting Unavailable Carolyn Armstrong Consulting Unavailable Kimani Cui Consulting Unavailable Larry Venegas Consulting Unavailable Laureen Min Consulting UnavailFei Vallecillo Consulting Unavailable Debby Moore Consulting Unavailable Britney Garnett Consulting Unavailable Kimani Motta Consulting Unavailable Diamond Grullon Consulting Unavailable cL Pereira Consulting Unavailable Fe Chow Consulting Unavailable Soo Little Consulting Unavailable Jorge Alberto Montero Consulting UnavailKee Pickard Consulting Unavailable Andreina [place]ima Consulting Unavailable Bravo Almanza Consulting Unavailable Ekaterina Marie Consulting Unavailable Henrique Ling Consulting Unavailable Rome Ni Consulting Unavailable Lina Grady Consulting Unavailable Donna Hightower Consulting Unavailable Javier Callejas Consulting Unavailable Isael Trevino Consulting Unavailable Lalito Jaquez Consulting Unavailable Matias Easton Consulting Unavailable Ravi Nino Consulting Unava santhoshable Mayra East Consulting Unavailable Julissa Rosales Consulting Unavailable Wilberto Vallejo Consulting Unavailable Larry Rose Consulting Unavailable Ethan Velarde Consulting Unavailable Mary Grace Sheikh Consulting Unavailable Inna Brewer Consulting Unavaila Ray Larsen Consulting Unavailable Mimi Allen Consulting Unavailable Ajit Hirsch Consulting Unavailsarah Cain MD, Primary Care Provider [phone] Payton HYDE, Unavailable Jeramie Mendez MD Primary Care Provider [phone] Palma STAFF NURSE MIDWIFE, Digna Unavailable Allergies Allergy ClassificationReported Allergen(s)Allergy TypeDate of OnsetReaction(s) Facility (2 sources)PenicillinsDrug allergy (disorder)67-00-6260[facility]mljMwsBarn[facility] (12 sources)PenicillinsDrug Iskoghbfpji53-16-3201[facility] (1 source)PenicillinsDrug allergy (disorder)18-52-7572JrxcrklaiZanesville [facility] Medications Current Medications MedicationDrug Class(es)DatesSig (Normalized)Sig (Original)[id number] 200 actuat albuterol 0.09 mg/actuat metered dose inhaler (13 sources)beta2-Adrenergic AgonistStart: 12-29-2023 End: 61-83-6030psfr 2 puff(s) by inhalation every four hours for wheezing albuterol HFA (Ventolin HFA) 90 mcg/act inhaler Indications: Pulmonary emphysema, unspecified emphysema type (HCC) Inhale 2 puffs every 4 (four) hours if needed for wheezing 18 g 1 09/14/2024 09/14/2025 Activeaspirin 81 mg chewable tablet (2 sources)Platelet Aggregation Inhibitor, Nonsteroidal Anti-inflammatory Drug Start: 49-74-3548ztqv 1 tablet by mouth once dailyAspirin (Children's Aspirin) 81 mg Tablet,Chewable Active 81 MG PO Daily July 202:00am Complies with drug therapyatorvastatin 80 mg oral tablet (2 sources)HMG-CoA Reductase InhibitorStart: 60-80-7140gkmh 1 tablet by mouth once daily in the eveningAtorvastatin 80 mg Tablet Active 80 MG PO Every evening July 20, 2025 12:00am Complieswith drug therapyclopidogrel 75 mg oral tablet (2 sources)P2Y12 Platelet InhibitorStart: 55-41-5351dyzv 1 tablet by mouth once dailyClopidogrel (Plavix) 75 mg tablet Active 75 MG PO Daily 90 90 July 20, 2025 12:00am Complieswith drug itgpslp94 actuat fluticasone propionate 0.25 mg/actuat / salmeterol 0.05 mg/actuat dry powder inhaler (11 sources)Corticosteroid, beta2-Adrenergic AgonistStart: 61-47-6094Gzfjbgjvpzz Propion-Salmeterol (Advair Diskus) 250-50 mcg/dose blister with device Active 1 INH INHALATION Every 12 hours 60 July 06, 2025 12:00am rinse mouth after use Complies with drug therapyStart: 03-27-2025 End: 98-38-8773txbo 1 puff(s) by mouth in the morningFluticasone-Salmeterol (Advair Diskus) 250-50 MCG/ACT aerosol powder Indications: Pulmonary emphysema, unspecified emphysema type (HCC) Inhale 1 puff in the morning and 1 puff before bedtime. Rinse mouth after use. 60 each 2 04/05/2025 Wllxuj09 hr metoprolol succinate 25 mg extended release oral tablet (3 sources)beta-Adrenergic BlockerStart: 89-99-8904hqyp 2 tablets by mouth once daily at bedtimeMetoprolol Succinate 25 mg tablet extended release 24 hr Active 12.5 MG PO Daily at bedtime 45 90 July 27, 2025 12:00am Complies with drug therapyStart: 07-20-2025 End: 03-55-2134Annozqfoxi Tartrate 25 mg Tablet Discontinued 12.5 MG PO Three times daily 45 30 July 20, 2025 12:00am July 27, 2025 1:36pm nitroglycerin 0.4 mg sublingual tablet (2 sources)Nitrate VasodilatorStart: 85-27-1764Oushbzlrqpwuz 0.4 mg Tablet, Sublingual Active 0.4 MG SUBLINGUAL Q5M as needed for Chest Pain 25 30Sept2024 12:00am Complies with drug therapyspironolactone 25 mg oral tablet (1 source)Aldosterone AntagonistStart: 28-19-4232fkjn 1 tablet by mouth once dailySpironolactone 25 mg tablet Active 25 MG PO Daily 90 July 27, 2025 12:00am Complies with drug therapy7 actuat umeclidinium 0.0625 mg/actuat dry powder inhaler (5 sources)AnticholinergicStart: 02-16-2024 End: 47-64-3546lgnz 1 puff(s) by inhalation once dailyUmeclidinium [place] (Incruse Ellipta) 62.5 MCG/ACT aerosol powder Indications: Pulmonary emphysema, unspecified emphysema type (CMS/HCC) Inhale 1 puff Daily 30 each 2 09/14/2024 12/13/2024 Activevalsartan 80 mg oral tablet (3 sources)Angiotensin 2 Receptor BlockerStart: 70-90-9167qkky 1 tablet by mouth once daily at bedtimeValsartan 80 mg tablet Active 80 MG PO Daily at bedtime 90 July 27, 2025 12:00am Complies with drug therapyStart: 07-20-2025 End: 77-11-6343jovy 1 tablet by mouth twice dailyValsartan 40 mg Tablet Discontinued 40 MG PO Twice daily 60 30 July 20, 2025 12:00am 2024 1:38pm Completed/Discontinued Medications MedicationDrug Class(es)DatesSig (Normalized)Sig (Original)Gon3080-Gqo Tci-Lmdm-Iay-Asb-C (2 sources)Osmotic Laxative, Vitamin CStart: 03-21-2025 End: 48-56-8563jaft 1 dose by mouth once daily in the vezyowqOpy6848-Rzb Vvm-Zlhi-Rov-Asb-C (Plenvu) 140-9-5.2 gram powder in packet, sequential Discontinued 140 ML PO .COMPLEX 3 March 21, 2025 12:00am July 20, 2025 3:42pm First dose at 4:00 pm the day before colonoscopy, Second dose at 11:00 pm the night before the uctzhfqhgbd004 actuat budesonide 0.16 mg/actuat / formoterol fumarate 0.0048 mg/actuat / glycopyrrolate 0.009 mg/actuat metered dose inhaler (1 source)Corticosteroid, beta2-Adrenergic AgonistStart: 03-16-2025 End: 81-93-4799puet 2 puff(s) by inhalation in the morning Cdhypkq-Djenmgdurnd-Dgrogigfra (Breztri Aerosphere) 160-9-4.8 MCG/ACT aerosol Indications: Pulmonary emphysema, unspecified emphysema type (CMS/HCC) Inhale 2 puffs in the morning and 2 puffs before bedtime. 10.7 g 2 03/16/2025 03/27/2025 Discontinued (Cost of medication)pantoprazole 40 mg delayed release oral tablet (16 sources)Proton Pump InhibitorStart: 03-16-2025 End: 80-09-7505Bxpihudfiykl 40 mg tablet,delayed release (DR/EC) Discontinued MG PO July 18, 2025 12:00am July 24, 2025 1:10pmStart: 03-10-2024 End: 29-57-0258qlgs 1 tablet by mouth before mealtimepantoprazole (ProtoNix) 40 MG EC tablet Indications: Dyspepsia and disorder of function of stomach Take 1 tablet (40 mg) by mouth in the morning. Take before meals. Do not crush, chew, or split.. 90 tablet 1 09/14/2024 03/13/2025 Qpjfyt69 actuat tiotropium 0.0025 mg/actuat inhalation spray (10 sources)AnticholinergicStart: 07-18-2025 End: 89-75-3320Urprwvtzck [place] (Spiriva Respimat) 2.5 mcg/actuation mist Discontinued INHALATION July 18, 2025 12:00am July 27, 2025 1:07pm Start: 03-27-2025 End: 10-37-9675pcpf 2 puff(s) by inhalation once dailytiotropium (Spiriva Respimat) 2.5 MCG/ACT inhaler Indications: Pulmonary emphysema, unspecified emph ysema type (HCC) Inhale 2 puffs Daily 1 each 2 03/27/2025 Active Problems Active Problems Problem ClassificationProblemDateDocumented DateEpisodic/ChronicAcute myocardial infarction (5 sources)Acute myocardial infarction of anterior wall; Translations: [ST elevation (STEMI) myocardial infarction involving other coronary artery of anterior wall]Onset: 711459-59-8508PwmbachOemmriv arrest and ventricular fibrillation (5 sources)Cardiac arrest; Translations: [Cardiac arrest, cause unspecified] Onset: 611389-16-6285TcbvixpRmxgfdr obstructive pulmonary disease and bronchiectasis (20 sources)Chronic obstructive pulmonary disease, unspecified; Translations: [Pulmonary emphysema]Onset: 722652-17-1308ViwxhcuQidxnisbgpppj of surgical procedures or medical care (2 sources)Subcutaneous emphysema resulting from a procedure; Translations: [Emphysema (subcutaneous) resulting from a procedure, initial encounter] 65-92-5316AejqveunTigstlhmtp heart failure; nonhypertensive (2 sources)Heart failure with reduced ejection fraction; Translations: [Unspecified systolic (congestive) heart failure]83-73-6453UazqzuhFogpnjed atherosclerosis and other heart disease (4 sources)History of acute ST segment elevation myocardial infarction; Translations: [Old myocardial infarction]68-19-6392MzpyjeaDmrvjlfj atherosclerosis and other heart disease (1 source)Coronary angioplasty status; Translations: [Coronary angioplasty status]Onset: 50-18-9449KuhjroxeDivpoklzgv disorders (18 sources)Gastro-esophageal reflux disease without esophagitis; Translations: [Gastroesophageal reflux disease without esophagitis]Onset: ChronicOther circulatory disease (2 sources)H/O: cardiovascular disease; Translations: [Personal history of sudden cardiac arrest]50-23-4072DallofliHooqjdbbt by other medications and drugs (1 source)Poisoning by unspecified narcotics, accidental (unintentional), initial encounter; Translations: [POISON UNS NARCOTIC ACC INITIAL ENC]Onset: 56-17-7046Kbcmxnzo codes; unclassified (3 sources)Transient alteration of awareness; Translations: [TRANSIENT ALTERATION OF AWARENESS]Onset: 55-57-3907CjpksevhItikzoxzgvy failure; insufficiency; arrest (adult) (5 sources)Respiratory failure; Translations: [Respiratory failure, unspecified, unspecified whether with hypoxia or hypercapnia]Onset: EpisodicRespiratory failure; insufficiency; arrest (adult) (1 source)Respiratory failure; insufficiency; arrest (adult)76-29-7466Rlfinbmtd- related disorders (20 sources)Nicotine dependence, cigarettes, uncomplicated; Translations: [Smoker]Onset: 08-20-2020 Resolved: 17-48-902593491616-81-6821Lmcpxoc Past or Other Problems Problem ClassificationProblemDateDocumented DateEpisodic/ChronicAbdominal pain (12 sources)Right upper quadrant pain; Translations: [Right upper quadrant pain] Onset: 746092-80-7863NvsztqokGhyvr circulatory disease (12 sources)Elevated blood-pressure reading without diagnosis of hypertension; Translations: [Elevated blood-pressure reading, without diagnosis of hypertension]Onset: 479421-93-7551MwnhtqsnIjjvv connective tissue disease (5 sources)Chronic pain of left upper limb; Translations: [Pain in left hand] Onset: 742650-11-3352SwxlxcfxRiksg disorders of stomach and duodenum (15 sources)Disorder of function of stomach; Translations: [Disease of stomach and duodenum, unspecified]Onset: 12-29-2023 Resolved: 733020-42-4822SkwjchaiVvhiz screening for suspected conditions (not mental disorders or infectious disease) (20 sources)Patient encounter status; Translations: [Encounter for screening for lipoid disorders]Onset: 12-29-2023 Resolved: 555473-61-2801FzqyxifsKqvqsbhu codes; unclassified (12 sources)Tobacco user; Translations: [Tobacco use]Onset: 02-16-2024 Resolved: 981185-42-2035Dgldgtaa Results Test NameValueInterpretationReference RangeFacilityECG 12 lead ECGon 07-20-2025 ECG 12 [facility] [place] [address] Electrocardiograph Report Signed Patient: Evangelina Plaza MR#: [id number] : 1965 Acct:[id number] Age/Sex: 60 / M ADM Date: 07/18/25 Loc: Room: [address] [place] [address] Type: DIS IN Attending Dr: Adonis Macdonald MD Ordering Provider: Adonis Macdonald MD Date of Service: 07/20/25 ECG/ECG 12 lead ECG: prn ekg Copies to: Test Reason : Blood Pressure : 140/73 mmHG Vent. Rate : 78 BPM Atrial Rate : 78 BPM P-R Int : 156 ms QRS Dur : 104 ms QT Int : 412 ms P-R-T Axes : 77 70 224 degrees QTcB Int : 469 ms Sinus rhythm with premature atrial complexes Left ventricular hypertrophy with repolarization abnormality Abnormal ECG When compared with ECG of 19-Jul-2025 07:58, premature atrial complexes are now present Inverted T waves have replaced nonspecific T wave abnormality in Inferior leads T wave inversion more evident in Lateral leads Confirmed by Jonathon Canales ([id number]) on 07/24/2025 8:43:47 AM Referred By: Electronically Signed By: Jonathon Canales Transcribed By: MUS Signed By Jonathon Canales MD 07/24/[address] [place], [place] [address]Arterial Blood Gason 07-19-2025 ABG Base Excess-2.1 mmol/LNormal-3.0-3.0Law[facility] County HospitalComment on above:Performed By: #### ABG ####Point of Care testing,ABG Frac Inspired O230 % NormalThe [facility] Physician GroupComment on above:Performed By: #### ABG ####Point of Care testing,ABG Oxygen Content9.4 mmol/LNormal6.6-9.7The [facility] Physician GroupComment on above:Performed By: #### ABG ####Point of Care testing,ABG Oxygen Gwykdqhcgj27.8 %Iwxeil06.0-100.0[facility] Physician [facility] Comment on above:Performed By: #### ABG ####Point of Care testing,ABG ZWF988.5 mm[Hg]Segnls61.0-45.0The [facility] Physician GroupComment on above:Performed By: #### ABG ####Point of Care testing,ABG VASC4KjrzwsAwwNov[facility] Physician [facility] Comment on above:Performed By: #### ABG ####Point of Care testing,ABG PH7.38 Normal7.35-7.45The [facility] Physician GroupComment on above:Performed By: #### ABG ####Point of Care testing,ABG KR5393.1 mm[Hg]High80.0-100.0The [facility] Physician GroupComment on above:Performed By: #### ABG ####Point of Care testing,ABG TV400 mLNormalThe [facility] Physician GroupComment on above: Performed By: #### ABG ####Point of Care testing,CO2 [Moles/Vol]24.0 mmol/L Jemitg63.0-27.0The [facility] Physician GroupComment on above:Performed By: #### ABG ####Point of Care testing,HCO3 (Bld) [Moles/Vol]22.8 mmol/LLow23.0-29.0The [facility] Physician GroupComment on above:Performed By: #### ABG ####Point of Care testing,Respiratory CriticalTGH Spring Hill Physician GroupComment on above:Result Comment: Critical Value called on: 07/19/2025 at 03:49 PERFORMED BY: [place] [address] PATHOLOGIST [employer]ANT MANAGER VASHTI ACOSTA M.D.Performed By: #### ABG ####Point of Care testing,Set Respiratory Kope28VrhhicIqvTGH Spring Hill Physician GroupComment on above:Performed By: #### ABG ####Point of Care testing,VBG Draw SiteLeft RadialTGH Spring Hill Physician GroupComment on above:Performed By: #### ABG ####Point of Care testing,Ventilator ModeACTGH Spring Hill Physician GroupComment on above:Performed By: #### ABG ####Point of Care testing,Complete Blood Count Auto Diffon 27-34-6180Dftokzois (Bld) [#/Vol]0.0 10*3/uLNormal0.0-0.2The [facility] Physician GroupComment on above:Result Comment: PERFORMED BY: [place] [address] PATHOLOGIST CHEMICAL PLANT MANAGER VASHTI ACOSTA M.D.Performed By: #### CBC, CMP, TRIG, HS TROP #### [place] [address] USABasophils/100 WBC (Bld)0.5 %Normal.The [facility] Physician GroupComment on above:Performed By: #### CBC, CMP, TRIG, HS TROP #### [place] [address] USAEosinophils (Bld) [#/Vol]0.0 10*3/uLNormal0.0-0.45The [facility] Physician GroupComment on above:Performed By: #### CBC, CMP, TRIG, HS TROP #### [place] [address] USAEosinophils/100 WBC (Bld)0.4 %Normal.The [facility] Physician GroupComment on above:Performed By: #### CBC, CMP, TRIG, HS TROP #### [place] [address] USAErythrocyte distribution width (RBC) [Ratio]14.5 %Normal 12.0-14.8The [facility] Physician GroupComment on above:Performed By: #### CBC, CMP, TRIG, HS TROP #### [place] [address] USAHematocrit (Bld) [Volume fraction]43.9 %Gpalcy73.8-50.0The [facility] Physician GroupComment on above:Performed By: #### CBC, CMP, TRIG, HS TROP #### [place] [address] USAHemoglobin (Bld) [Mass/Vol]15.0 g/wWHaszvr18.0-17.0The [facility] Physician GroupComment on above:Performed By: #### CBC, CMP, TRIG, HS TROP #### [place] [address] USALymphocytes (Bld) [#/Vol]0.7 10*3/uLLow1.00-4.8The [facility] Physician GroupComment on above:Performed By: #### CBC, CMP, TRIG, HS TROP #### [place] [address] USALymphocytes/100 WBC (Bld)7.4 %Normal.The [facility] Physician GroupComment on above:Performed By: #### CBC, CMP, TRIG, HS TROP #### [address]H (RBC) [Entitic mass]31.7 rvLypxyt78.5-35.2The [facility] Physician GroupComment on above:Performed By: #### CBC, CMP, TRIG, HS TROP #### [address] (RBC) [Entitic vol]93.1 lRWommrp49.5-101The [facility] Physician GroupComment on above:Performed By: #### CBC, CMP, TRIG, HS TROP #### [place] [address] USAMean Corpuscular HGB Conc34.1 g/uCGwtgoy38.5-35.6The [facility] Physician GroupComment on above:Performed By: #### CBC, CMP, TRIG, HS TROP #### [place] [address] USAMonocytes (Bld) [#/Vol]0.4 10*3/uLNormal0.0-0.8The [facility] Physician GroupComment on above:Performed By: #### CBC, CMP, TRIG, HS TROP #### [place] [address] USAMonocytes/100 WBC (Bld)4.4 %Normal.The [facility] Physician GroupComment on above:Performed By: #### CBC, CMP, TRIG, HS TROP #### [place] [address] USANeutrophils (Bld) [#/Vol]8.6 10*3/uLHigh1.8-7.7The [facility] Physician GroupComment on above:Performed By: #### CBC, CMP, TRIG, HS TROP #### [place] [address] USANeutrophils/100 WBC (Bld)87.3 %Normal.The [facility] Physician GroupComment on above:Performed By: #### CBC, CMP, TRIG, HS TROP #### [place] [address] USANRBC%0.0 /100{WBC}Normal0-0.5The [facility] Comment on above:Performed By: #### CBC, CMP, TRIG, HS TROP #### [place] [address] USAPlatelet mean volume (Bld) [Entitic vol]9.1 fLNormal 6.6-10.1The [facility] Physician GroupComment on above:Performed By: #### CBC, CMP, TRIG, HS TROP #### [place] [address] USAPlatelets (Bld) [#/Vol]165 10*3/sJEskclj384-471Qyq [facility] Physician GroupComment on above:Performed By: #### CBC, CMP, TRIG, HS TROP #### [place] [address] USARBC (Bld) [#/Vol]4.72 10*6/uLNormal3.90-5.60The [facility] Physician GroupComment on above:Performed By: #### CBC, CMP, TRIG, HS TROP #### [place] [address] USAWBC (Bld) [#/Vol]9.9 10*3/uLNormal4.1-10.5The [facility] Physician GroupComment on above:Performed By: #### CBC, CMP, TRIG, HS TROP #### [place] [address] USAWhite Blood Count9.9 [CFU]/mLNormal4.1-10.5The [facility] Physician GroupComment on above:Performed By: #### CBC, CMP, TRIG, HS TROP #### [place] [address] USAComprehensive Metabolic Panelon 87-88-2358Ydggjgy [Mass/Vol]3.5 g/dLNormal3.5-5.7The [facility] Physician GroupComment on above: Performed By: #### CBC, CMP, TRIG, HS TROP #### [address] [place] [address] USAAlbumin/Globulin [Mass ratio]1.6 {ratio}NormalThe [facility] Physician GroupComment on above:Performed By: #### CBC, CMP, TRIG, HS TROP #### [facility] [address] [place] [address] USAALP [Catalytic activity/Vol]76 U/VDookrb77-339Hos [facility] Physician GroupComment on above:Performed By: #### CBC, CMP, TRIG, HS TROP #### [facility] [address] [place] [address] USAALT [Catalytic activity/Vol]42 U/LNormal7-52The [facility] Physician GroupComment on above:Performed By: #### CBC, CMP, TRIG, HS TROP #### [place] [address] USAAnion gap [Moles/Vol]9.5 mmol/LNormal6.0-15.0The [facility] Physician GroupComment on above:Performed By: #### CBC, CMP, TRIG, HS TROP #### [place] [address] USAAST [Catalytic activity/Vol]56 U/GTgpl70-91Nix [facility] Physician GroupComment on above:Performed By: #### CBC, CMP, TRIG, HS TROP #### [place] [address] USABilirubin [Mass/Vol]0.8 mg/dLNormal0.3-1.0The [facility] Physician GroupComment on above:Performed By: #### CBC, CMP, TRIG, HS TROP #### [place] [address] USACalcium [Mass/Vol]8.3 mg/dLLow8.6-10.3The [facility] Physician GroupComment on above:Performed By: #### CBC, CMP, TRIG, HS TROP #### [facility] [address] [place] [address] USAChloride [Moles/Vol]110 mmol/JYuuv89-928Fno [facility] Physician GroupComment on above:Performed By: #### CBC, CMP, TRIG, HS TROP #### [facility] [address] [place] [address] USACO2 [Moles/Vol]24.6 mmol/SRvtpsx92.0-31.0The [facility] Physician GroupComment on above:Performed By: #### CBC, CMP, TRIG, HS TROP #### [facility] [address] [place] [address] USACreatinine [Mass/Vol]1.11 mg/dLNormal0.70-1.30The [facility] Physician GroupComment on above:Performed By: #### CBC, CMP, TRIG, HS TROP #### [facility] [address] [place] [address] USACreatinine Clr Calc Nllfxfle88.54NormJ.W. Ruby [facility] Physician GroupComment on above:Performed By: #### CBC, CMP, TRIG, HS TROP #### [facility] [address] [place] [address] USAGFR/1.73 sq M.predicted MDRD (S/P/Bld) [Vol rate/Area] mL/min/{1.73_m2}NormalThe [facility] Physician GroupComment on above:Performed By: #### CBC, CMP, TRIG, HS TROP #### [facility] [address] [place] [address] USAGlobulin (S) [Mass/Vol]2.2 g/dLNormJ.W. Ruby [facility] Physician [facility]agoula HospitalComment on above:Performed By: #### CBC, CMP, TRIG, HS TROP #### [facility] [address] [place] [address] USAGlucose [Mass/Vol]104 mg/vWMnsh44-539Loa [facility] Physician GroupComment on above:Result Comment: Random Glucose Reference Range is dependent on time and content of last meal. Glucose of more than 200 mg/dL in a nonstressed, ambulatory subject supports the diagnosis of Diabetes Mellitus. ADA recommended reference rangePerformed By: #### CBC, CMP, TRIG, HS TROP #### [facility] [address] [place] [address] USAPotassium [Moles/Vol]4.1 mmol/LNormal3.5-5.1The [facility] Physician GroupComment on above:Performed By: #### CBC, CMP, TRIG, HS TROP #### [facility] [address] [place] [address] USAProtein [Mass/Vol]5.7 g/dLLow6.4-8.9The [facility] Physician GroupComment on above:Performed By: #### CBC, CMP, TRIG, HS TROP #### [facility] [address] [place] [address] USASodium [Moles/Vol]140 mmol/XHbjrnd347-950Wvo [facility] Physician GroupComment on above:Performed By: #### CBC, CMP, TRIG, HS TROP #### [facility] [address] [place] [address] USAUrea nitrogen [Mass/Vol]19 mg/dLNormal7-25The [facility] Physician GroupComment on above:Performed By: #### CBC, CMP, TRIG, HS TROP #### [facility] [address] [place] [address] USAECG 12 lead ECGon [id number] 12 lead [facility] [address] [place] [address] Electrocardiograph Report Signed Patient: Evangelina Plaza MR#: [id number] : 1965 Acct:[id number] Age/Sex: 60 / M ADM Date: 07/18/25 Loc: Room: [address] [place] [address] Type: ADM IN Attending Dr: Adonis Macdonald MD Ordering Provider: Adonis Macdonald MD Date of Service: 07/19/25 ECG/ECG 12 lead ECG: Post Angioplasty Procedure in AM Copies to: Test Reason : Blood Pressure : 115/58 mmHG Vent. Rate : 70 BPM Atrial Rate : 70 BPM P-R Int : 146 ms QRS Dur : 100 ms QT Int : 466 ms P-R-T Axes : 77 70 183 degrees QTcB Int : 503 ms Normal sinus rhythm Septal infarct (cited on or before 18-Jul-2025) Prolonged QT Abnormal ECG When compared with ECG of 18-Jul-2025 12:10, Serial changes of Septal infarct present Confirmed by Jonathon Canales ([id number]) on 07/19/2025 1:17:42 PM Referred By: Electronically Signed By: Jonathon Canales Transcribed By: MUS Signed By Jonathon Canales MD 07/19/[address] [place] [address] Physician GroupECH echo transthoracicon 66-24-2450ZSS echo transthoracicCOSHOCTON [facility] [address] [place], [place] [id number] Echocardiogram Signed Patient: Evangelina Plaza MR#: [id number] : 1965 Acct:[id number] Age/Sex: 60 / M ADM Date: 07/18/25 Loc: Room: [address] [place] [address] Type: ADM IN Attending Dr: Adonis Macdonald MD Ordering Provider: Adonis Macdonald MD Date of Service: 07/18/25 ECH/ECH echo transthoracic: anterior stemi s/p ppci to ostial LAD Copies to: MD Adonis Iraheta MD BSA: 2.0 m2 BP: 115/58 mmHg HR: 68 Reason For Study: anterior stemi s/p ppci to ostial LAD History: No cardiac history per patient Interpretation Summary Ejection Fraction = 50-55%. Regional wall motion abnormalities cannot be excluded due to limited visualization. The left ventricular size and thickness are normal. A variety of Doppler measurements indicate normal left ventricular diastolic function. The study was technically suboptimal in quality due to ventilator interference. There is no comparison study available. Procedure/Quality: A two-dimensional transthoracic echocardiogram with color flow, Doppler and injection of contrast agent Definity was performed. The study was technically difficult with many images being suboptimal in quality. The study was technically suboptimal in quality due to ventilator interference . Left Ventricle: The left ventricular size and thickness are normal. Ejection Fraction = 50-55%. A variety of Doppler measurements indicate normal left ventricular diastolic function. Regional wall motion abnormalities cannot be excluded due to limited visualization. Left Atrium: The left atrium appears normal in size. Right Atrium: The right atrium appears normal in size. Right Ventricle: The right ventricle is normal in size and function. Aortic Valve: The aortic valve is normal in structure. No hemodynamically significant valvular aortic stenosis. No aortic regurgitation is present. Mitral Valve: The mitral valve is normal in structure. No significant mitral valve stenosis. There is no mitral regurgitation noted. Tricuspid Valve: The tricuspid valve is normal in structure. No tricuspid regurgitation. Pulmonic Valve: The pulmonic valve is not well visualized. No significant pulmonic regurgitation. Arteries: The aortic root is normal size. Pericardium/Pleura: No pericardial effusion seen. IVC/Hepatic Veins: The inferior vena cava is normal in size, with a normal collapsibility index. Measurements with Normals IVSd: 0.90 cm (0.7-1.1 cm)LVIDd: 4.9 cm (3.7-5.4 cm) LVPWd: 0.90 cm (0.7-1.1 cm)LVIDs: 3.4 cm (2.3-3.6 cm) LA dimension: 4.1 cm(2.3-4.0 cm)Ao root diam: 3.0 cm(2.0-3.6 cm) Doppler with Normals RVSP(TR): 13.1 mmHg (18-35mmHg) LV V1 max: 80.8 cm/sec (0.7-1.7m/s)MV E max lex: 50.2 cm/sec(0.8-1.3m/s) MV A max lex: 64.9 cm/sec(0.0-0.0m/s) MV E/A: 0.77 (<1.5) MMode/2D Measurements Calculations TAPSE: 1.8 cm FS: 30.6 % Ao root area: LVOT diam: 2.1 cm RV S Lex: EDV(Teich): 7.1 cm2 LVOT area: 3.5 cm2 9.7 cm/sec 112.8 ml ESV(Teich): 47.4 ml EF(Teich): 58.0 % __ LVLd ap4: 8.2 cm SV(MOD-sp4): LAV(MOD-sp4): LA A2 area: 16.0 cm2 EDV(MOD-sp4): 40.9 ml 39.3 ml 80.6 ml LAV(MOD-sp2): LA A4 area: 15.4 cm2 LVLs ap4: 7.2 cm 38.1 ml LA length (vol): ESV(MOD-sp4): 4.9 cm 39.7 ml LA vol: 42.9 ml EF(MOD-sp4): 50.7 % LA vol index: 21.9 ml/m2 Doppler Measurements Calculations MV dec time: MV V2 max: E/E' lat: 5.2 Ao V2 max: 0.23 sec 64.6 cm/sec E/E' med: 7.5 160.0 cm/sec MV max P.7 mmHg Ao max P.2 mmHg MV V2 mean: Ao mean P.0 mmHg 35.5 cm/sec Ao V2 mean: MV mean P.0 cm/sec 1.0 mmHg Ao V2 VTI: 29.9 cm MV V2 VTI: 32.6 cm KAT(I,D): 1.9 cm2 MVA(VTI): 1.7 cm2 KAT(V,D): 1.7 cm2 __ LV V1 max PG: TV max PG: TR max lex: 2.6 mmHg 10.0 mmHg 159.0 cm/sec LV V1 mean PG: TR max P.1 mmHg 1.0 mmHg RAP systole: LV V1 mean: 3.0 mmHg 50.2 cm/sec LV V1 VTI: 16.0 cm Transcribed By: SCV Performed At: 07/19/25 0759 Signed By: Ekaterina Hoffman MD 07/19/25 1515[facility] Glucose Poct Glucometerson 79-70-0612Dbrmhbk0Xvk0: Cleaned MeterNoMemorial Health System [facility] Hospital GroupComment on above:Result Comment: PERFORMED BY: [facility] [address] PATHOLOGIST [employer]MICAL [employer]ANT MANAGER VASHTI ACOSTA M.D.Performed By: #### GLULS ####Point of Care testing,Glucose [Mass/Vol]102 mg/dLTGH [facility] Physician [facility]oula HospitalComment on above:Result Comment: Random Glucose Reference Range is dependent on time and content of last meal. Glucose of more than 200 mg/dL in a nonstressed, ambulatory subject supports the diagnosis of Diabetes Mellitus.Performed By: #### GLULS ####Point of Care testing,Commemt1 Glu2: Cleaned MeterNoNovant Health/NHRMC Physician Pascagoula HospitalComment on above:Result Comment: PERFORMED BY: [address] [address] PATHOLOGIST CHEMICAL PLANT MANAGER VASHTI ACOSTA M.D.Performed By: #### GLULS ####Point of Care testing,Glucose [Mass/Vol]106 mg/dLTGH [facility] Physician [facility]oula HospitalComment on above:Result Comment: Random Glucose Reference Range is dependent on time and content of last meal. Glucose of more than 200 mg/dL in a nonstressed, ambulatory subject supports the diagnosis of Diabetes Mellitus.Performed By: #### GLULS ####Point of Care testing,Prothrombin Time INRon 18-27-7127VGT Coag (PPP) [Relative time]1.0 {INR}NormalThe [facility] Physician GroupComment on above:Result Comment: INR Therapeutic Range A) Pre- and Peroperative OAT started two weeks before surgery. NOT HIP SURGERY: 1.5 - 2.5 HIP SURGERY: 2 - 3 B) Primary and secondary prevention of venous THROMBOSIS: 2 - 3 C) Active venous thrombosis, pulmonary embolism and prevention of recurrent venous thrombosis: 2 - 3 D) Prevention of arterial thromboembolism including patients with mechanical heart valves: 3 - 4.5 PERFORMED BY: [place] [address] PATHOLOGIST CHEMICAL PLANT MANAGER VASHTI ACOSTA M.D.Performed By: #### PT #### [address] [address] USAPT Coag (PPP) [Time]11.3 sNormal9.0-12.9The [facility] Physician GroupComment on above:Result Comment: A hematocrit value greater than 55% may lead to inaccurate results in coagulation testing. Patients having hematocrit values >55% require a special collection tube for coagulation studies. Please contact the laboratory at [phone] for redraw instructions.Performed By: #### PT #### [address] [address] USATriglycerideson 53-41-0798Rwaeyspbfsve [Mass/Vol]109 mg/dL Llcjmq99-574Mro [facility] Physician GroupComment on above:Result Comment: TRIG ATP III CLASSIFICATION TRIG less than 150 mg/dL Normal TRIG 150-199 mg/dL Borderline high TRIG 200-500 mg/dL High TRIG greater than 500 mg/dL Very high Standard traceable to the Center for Disease Conrtrol and Prevention (CDC) test method. PERFORMED BY: [place] [address] PATHOLOGIST CHEMICAL PLANT MANAGER VASHTI ACOSTA M.D.Performed By: #### CBC, CMP, TRIG, HS TROP #### [place] [id number] USATroponin I High Sensitivityon 73-59-8410Rctmhjyw I High Skvtfeogbgt8077Ukt scale high0-20The [facility] Physician GroupComment on above: Result Comment: Critical Result : Called to and read back by: ALKA QUINTANA at: 07/19/2025 05:22:08 by:[id number] The Troponin units of report have been changed to meet the Chest Pain Accreditation requirement, element EC5.M1l2. Troponin units are changed from pg/ml to ng/L. Also, the decimal is removed and results are in whole numbers. PERFORMED BY: [place] [id number] PATHOLOGIST CHEMICAL PLANT MANAGER VASHTI ACOSTA M.D.Performed By: #### CBC, CMP, TRIG, HS TROP #### [address] [address] USAXR chest 1V portableon 74-83-5104SY chest 1V portable [facility] [address] [place], [place] [id number] XRay Report Signed Patient: Evangelina Plaza MR#: [id number] : 1965 Acct:[id number] Age/Sex: 60 / M ADM Date: 07/18/25 Loc: Room: [address] [place] [address] Type: ADM IN Attending Dr: Adonis Macdonald MD Copies to: Francycharity Rivera APRN [facility] Adonis Macdonald MD Ordering Provider: Francy Rivera APRN [facility] Date of Service: 07/19/25 XR/XR chest 1V portable: respiratory failure XR chest 1V portable 07/19/2025 5:36 AM SIGNS AND SYMPTOMS: respiratory failure PROTOCOL: Frontal radiograph of the chest COMPARISON: 07/18/2025 FINDINGS: The trachea is midline. The ET tube, enteric tube, and right IJ line are in satisfactory position. The heart and mediastinal structures are within normal limits. The lung parenchyma is clear. The bony thorax is intact. There is anterior fusion of the lower cervical spine. Degenerative changes are noted in the shoulders and thoracic spine. XR/XR chest 1V portable IMPRESSION: No acute cardiopulmonary pathology. Impression dictated by: Yoli Wolf M.D. 07/19/2025 6:14 AM Dictation Location: [facility]--17 Transcribed By: [facility] 07/19/25 0614 Dictated By: Yoli Wolf II, MD 07/19/25 0613 Signed By: 07/19/25 0614[facility] ClinicAr[facility] Gason 07-18-2025 ABG Base Excess-4.8 mmol/LLow-3.0-3.0The [facility] Physician GroupComment on above:Performed By: #### ABG ####Point of Care testing,ABG Frac Inspired O250 % NormalThe [facility] Physician GroupComment on above:Performed By: #### ABG ####Point of Care testing,ABG Oxygen Content9.9 mmol/LHigh6.6-9.7The [facility] Physician GroupComment on above:Performed By: #### ABG ####Point of Care testing,ABG Oxygen Jqtlgqceiw88.2 %Omzwyc25.0-100.0The [facility] Comment on above:Performed By: #### ABG ####Point of Care testing,ABG AZZ871.4 mm[Hg]Noisnw29.0-45.0The [facility] Physician GroupComment on above:Performed By: #### ABG ####Point of Care testing,ABG KCHV3IqwdcgXarNovant Health/NHRMC Physician Group Comment on above:Performed By: #### ABG ####Point of Care testing,ABG PH7.33Low 7.35-7.45The [facility] Physician GroupComment on above:Performed By: #### ABG ####Point of Care testing,ABG OI6420.8 mm[Hg]Off scale high80.0-100.0The [facility] Physician GroupComment on above:Performed By: #### ABG ####Point of Care testing,ABG TV400 mLNormalThe [facility] Physician GroupComment on above: Performed By: #### ABG ####Point of Care testing,CO2 [Moles/Vol]22.0 mmol/LLow 23.0-27.0The [facility] Physician GroupComment on above:Performed By: #### ABG ####Point of Care testing,HCO3 (Bld) [Moles/Vol]20.8 mmol/LLow23.0-29.0The [facility] Physician GroupComment on above:Performed By: #### ABG ####Point of Care testing,Respiratory CriticalNoNovant Health/NHRMC Physician GroupComment on above:Result Comment: Critical Value called on: 07/18/2025 at 12:48 PERFORMED BY: [address] [place] [id number] PATHOLOGIST CHEMICAL PLANT MANAGER VASHTI ACOSTA M.D.Performed By: #### ABG ####Point of Care testing,Set Respiratory Wvcl12DxvcanEyaTGH [facility] Physician GroupComment on above:Performed By: #### ABG ####Point of Care testing,VBG Draw SiteLeft BrachialTGH Spring Hill Physician GroupComment on above:Performed By: #### ABG ####Point of Care testing,Complete Blood Count Auto Diffon 86-78-8113Lwmgogymq (Bld) [#/Vol] 0.0 10*3/uLNormal0.0-0.2The [facility] Physician GroupComment on above:Result Comment: PERFORMED BY: [address] [place] [address] PATHOLOGIST CHEMICAL PLANT MANAGER VASHTI ACOSTA M.D.Performed By: #### CBC, CMP, PHOS, MG ####[place] [address] USABasophils/100 WBC (Bld)0.2 %Normal.The [facility] Physician GroupComment on above:Performed By: #### CBC, CMP, PHOS, MG ####[place] [address] USAEosinophils (Bld) [#/Vol]0.0 10*3/uLNormal0.0-0.45 The [facility] Physician GroupComment on above:Performed By: #### CBC, CMP, PHOS, MG ####[place] [address] [place] Eosinophils/100 WBC (Bld)0.3 %Normal.The [facility] Physician GroupComment on above:Performed By: #### CBC, CMP, PHOS, MG ####[place] [address] USAErythrocyte distribution width (RBC) [Ratio]14.2 %Pkstvq90.0-14.8The [facility] Physician GroupComment on above: Performed By: #### CBC, CMP, PHOS, MG ####[place] [address] USAHematocrit (Bld) [Volume fraction]45.3 %Normal 38.8-50.0The [facility] Physician GroupComment on above:Performed By: #### CBC, CMP, PHOS, MG ####[place] [address] USAHemoglobin (Bld) [Mass/Vol]15.4 g/yZPqwidh35.0-17.0The [facility] Physician GroupComment on above:Performed By: #### CBC, CMP, PHOS, MG ####[place] [address] [place] Lymphocytes (Bld) [#/Vol]0.6 10*3/uLLow1.00-4.8The [facility] Comment on above:Performed By: #### CBC, CMP, PHOS, MG ####[place] [address] USALymphocytes/100 WBC (Bld)5.5 % Normal.The [facility] Physician GroupComment on above:Performed By: #### CBC, CMP, PHOS, MG ####[address] (RBC) [Entitic mass]31.5 gaWtbpha36.5-35.2The [facility] Physician GroupComment on above:Performed By: #### CBC, CMP, PHOS, MG ####[address] (RBC) [Entitic vol]92.9 gJZwzypc05.5-101The [facility] Physician GroupComment on above:Performed By: #### CBC, CMP, PHOS, MG ####[place] [address] USAMean Corpuscular HGB Conc33.9 g/dKOzdmyr03.5-35.6The [facility] Physician GroupComment on above:Performed By: #### CBC, CMP, PHOS, MG ####[place] [address] [place] Monocytes (Bld) [#/Vol]0.5 10*3/uLNormal0.0-0.8The [facility] Comment on above:Performed By: #### CBC, CMP, PHOS, MG ####[place] [address] USAMonocytes/100 WBC (Bld)4.8 % Normal.The [facility] Physician GroupComment on above:Performed By: #### CBC, CMP, PHOS, MG ####[place] [address] USANeutrophils (Bld) [#/Vol]9.6 10*3/uLHigh1.8-7.7The [facility] Physician GroupComment on above:Performed By: #### CBC, CMP, PHOS, MG ####[place] [address] USANeutrophils/100 WBC (Bld)89.2 %Normal.The [facility] Physician GroupComment on above:Performed By: #### CBC, CMP, PHOS, MG ####[place] [address] USANRBC%0.1 /100{WBC}Normal0-0.5The [facility] Physician GroupComment on above:Performed By: #### CBC, CMP, PHOS, MG ####[place] [address] USAPlatelet mean volume (Bld) [Entitic vol]8.6 fLNormal6.6-10.1The [facility] Physician GroupComment on above:Performed By: #### CBC, CMP, PHOS, MG ####[place] [address] USAPlatelets (Bld) [#/Vol]173 10*3/uL Hxptdm242-542Opb [facility] Physician GroupComment on above:Performed By: #### CBC, CMP, PHOS, MG ####[place] [address] USARBC (Bld) [#/Vol]4.87 10*6/uLNormal3.90-5.60The [facility] Physician GroupComment on above:Performed By: #### CBC, CMP, PHOS, MG ####[place] [address] USAWBC (Bld) [#/Vol]10.8 10*3/uLHigh4.1-10.5The [facility] Physician GroupComment on above:Performed By: #### CBC, CMP, PHOS, MG ####[place] [address] USAWhite Blood Count10.8 [CFU]/mLHigh4.1-10.5The [facility] Physician GroupComment on above:Performed By: #### CBC, CMP, PHOS, MG ####[address] [place] [address] [facility] Comprehensive Metabolic Panelon 03-60-6943Vndmpal [Mass/Vol]3.6 g/dLNormal 3.5-5.7The [facility] Physician GroupComment on above:Performed By: #### CBC, CMP, PHOS, MG ####[place] [address] [place] [address] USAAlbumin/Globulin [Mass ratio]1.7 {ratio}NormalThe [facility] Physician GroupComment on above:Performed By: #### CBC, CMP, PHOS, MG ####[address] [address] USAALP [Catalytic activity/Vol]80 U/EWlhbsy36-680Dyi [facility] Physician GroupComment on above: Performed By: #### CBC, CMP, PHOS, MG ####[place] [address] USAALT [Catalytic activity/Vol]49 U/LNormal7-52 The [facility] Physician GroupComment on above:Performed By: #### CBC, CMP, PHOS, MG ####[address] [address] USA Anion gap [Moles/Vol]8.7 mmol/LNormal6.0-15.0The [facility] Comment on above:Performed By: #### CBC, CMP, PHOS, MG ####[place] [id number] USAAST [Catalytic activity/Vol]68 U/YTwxh88-47Qsx [facility] Physician GroupComment on above:Performed By: #### CBC, CMP, PHOS, MG ####[address] [address] USABilirubin [Mass/Vol]0.7 mg/dLNormal0.3-1.0The [facility] Physician GroupComment on above:Performed By: #### CBC, CMP, PHOS, MG ####[place] [id number] USACalcium [Mass/Vol]8.1 mg/dLLow8.6-10.3The [facility]ician [facility]oul[facility] HospitalComment on above:Performed By: #### CBC, CMP, PHOS, MG ####[place] [address] USAChloride [Moles/Vol]111 mmol/EHbwv95-682Zjx [place] Physician [facility]oula HospitalComment on above:Performed By: #### CBC, CMP, PHOS, MG ####[place] [address] USACO2 [Moles/Vol]24.5 mmol/XXgtozo35.0-31.0The [facility] Physician GroupComment on above:Performed By: #### CBC, CMP, PHOS, MG ####[place] [address] USACreatinine [Mass/Vol]1.03 mg/dLNormal 0.70-1.30The [facility]ician [facility]oula HospitalComment on above:Performed By: #### CBC, CMP, PHOS, MG ####[place] [address] USACreatinine Clr Calc Krbaguwr10.17NormNemours Children's Hospital Physician [facility] Comment on above:Performed By: #### CBC, CMP, PHOS, MG ####[place] [address] USAGFR/1.73 sq M.predicted MDRD (S/P/Bld) [Vol rate/Area]mL/min/{1.73_m2}NormalNemours Children'S Hospital Physician [facility] Comment on above:Performed By: #### CBC, CMP, PHOS, MG ####[place] [id number] USAGlobulin (S) [Mass/Vol]2.1 g/dLNoNovant Health/NHRMC Physician [place]oula HospitalComment on above:Performed By: #### CBC, CMP, PHOS, MG ####[place] [address] USAGlucose [Mass/Vol]85 mg/cTIzgedi07-277Vog [place] [facility] Comment on above:Result Comment: Random Glucose Reference Range is dependent on time and content of last meal. Glucose of more than 200 mg/dL in a nonstressed, ambulatory subject supports the diagnosis of Diabetes Mellitus. ADA recommended reference rangePerformed By: #### CBC, CMP, PHOS, MG ####[place] [id number] [address] Potassium [Moles/Vol]4.2 mmol/LNormal3.5-5.1The [facility] Physician GroupComment on above:Performed By: #### CBC, CMP, PHOS, MG ####[place] [address] USAProtein [Mass/Vol]5.7 g/dLLow6.4-8.9 The [facility] Physician GroupComment on above:Performed By: #### CBC, CMP, PHOS, MG ####[address] Sodium [Moles/Vol]140 mmol/TMhbndi019-660Knj [facility] Physician GroupComment on above:Performed By: #### CBC, CMP, PHOS, MG ####[address] Holmes StreetUrea nitrogen [Mass/Vol]22 mg/dLNormal - [facility] Physician GroupComment on above:Performed By: #### CBC, CMP, PHOS, MG ####[place] [id number] USAECG 12 lead ECGon 98-13-6188XXC 12 lead [facility]GCOSHO[facility] [address] [place] [address] Electrocardiograph Report Signed Patient: Evangelina Plaza MR#: [id number] : 1965 Acct:[id number] Age/Sex: 60 / M ADM Date: 07/18/25 Loc: Room: [address] [place] [address] Type: REG SDC Attending Dr: Adonis Macdonald MD Ordering Provider: Adonis Macdonald MD Date of Service: 07/18/25 ECG/ECG 12 lead ECG: Post Angioplasty Procedure Copies to: Test Reason : Blood Pressure : 103/64 mmHG Vent. Rate : 52 BPM Atrial Rate : 52 BPM P-R Int : 152 ms QRS Dur : 116 ms QT Int : 476 ms P-R-T Axes : -12 71 121 degrees QTcB Int : 442 ms Sinus bradycardia Septal infarct , age undetermined Abnormal ECG Confirmed by Ekaterina Hoffman ([id number]) on 07/18/2025 2:17:05 PM Referred By: Electronically Signed By: Ekaterina Hoffman Transcribed By: MUS Signed By Ekaterina Hoffman MD 5 1417NormNemours Children's Hospital Physician [facility]oula HospitalGlucose Poct Glucometerson 07-18-2025 Glucose [Mass/Vol]83 mg/dLNoNovant Health/NHRMC Physician [facility]oula HospitalComment on above: Result Comment: Random Glucose Reference Range is dependent on time and content of last meal. Glucose of more than 200 mg/dL in a nonstressed, ambulatory subject supports the diagnosis of Diabetes Mellitus. PERFORMED BY: [place] [address] PATHOLOGIST CHEMICAL PLANT MANAGER VASHTI ACOSTA M.D.Performed By: #### GLULS ####Point of Care testing, Magnesiumon 42-66-0501Raekkbjvg [Mass/Vol]2.1 mg/dLNormal1.9-2.7The [facility] Physician GroupComment on above:Result Comment: PERFORMED BY: [place] [address] PATHOLOGIST CHEMICAL PLANT MANAGER VASHTI ACOSTA M.D.Performed By: #### CBC, CMP, PHOS, MG ####[facility] [address] [place] [address] USAPhosphoruson 78-27-3711Gtedqqher [Mass/Vol]2.5 mg/dLNormal2.5-4.5The [facility] HospitalComment on above:Performed By: #### CBC, CMP, PHOS, MG ####[facility] [address] [place] [address] USAXR abdomen 1Von 90-10-7889GZ abdomen 1VCOSHOCTON REGIONAL [place] [address] XRay Report Signed Patient: Evangelina Plaza MR#: [id number] : 1965 Acct:[id number] Age/Sex: 60 / M ADM Date: 07/18/25 Loc: Room: [address] [place] [address] Type: [facility] Attending Dr: Adonis Macdonald MD Copies to: MD Adonis Black MD Ordering Provider: Ajit Hirsch MD Date of Service: 07/18/25 XR/XR chest 1V portable: ETT placement ([id number]) XR/XR abdomen 1V: NG tube placement XR chest 1V portable, XR abdomen 1V 07/18/2025 12:57 PM SIGNS AND SYMPTOMS: ETT placement PROTOCOL: Frontal radiographs of the chest and abdomen COMPARISON: None FINDINGS: The trachea is midline. The ET tube, enteric tube, and right IJ line are in satisfactory position. The heart and mediastinal structures are within normal limits. The lung parenchyma is clear. The bony thorax is intact. Degenerative changes are noted in the shoulders and thoracic spine. Anterior fusion hardware is noted in the cervical spine. XR/XR chest 1V portable IMPRESSION: Satisfactory positioning of ET tube and enteric tube. Impression dictated by: Yoli Wolf M.D. 07/18/2025 1:11 PM Dictation Location: [place] [address] Transcribed By: [facility] 07/18/25 1311 Dictated By: Yoli Wolf II, MD 07/18/25 1309 Signed By: 07/18/25 1311T[facility] Physician GroupCT LUNG SCREENING LOW DOSEon 74-82[place]63[place], [place] [address] [place] Scan Report Signed Patient: EVANGELINA PLAZA MR#: [id number] : 1965 Acct:[id number] Age/Sex: 60 / M ADM Date: 03/30/25 Loc: CT Attending Dr: Dior Khan NP Ordering Physician: Dior Khan NP Date of Service: 03/30/25 Procedure(s): CT lung screening low-dose Accession Number(s): [id number] cc: Shaikh Claus Cain [place] [id number] Patient Name: EVANGELINA PLAZA MRN: [facility]:[id number] date: 1965 Sex: M Assigned Patient Location: CT Current Patient Location: CT Accession/Order Number: [id number] Exam Date: 03/30/2025 15:15 Report Date: 03/30/2025 [...] Miguel M.D. 03/30/2025 3:19 PM Dictation Location: [place] [address] Electronically authenticated by: [id number] Y Date: 03/30/2025 15:19 Dictated By: Flakito Miguel D.O. Signed By: 03/30/25 1522 DD/ 1519 TD/TT: Foreign Broadcast Specialist:KYMHRadiology, Radiologist, - 03/30/[address] [address] [address] Scan Report Signed Patient: EVANGELINA PLAZA MR#: [id number] : 1965 Acct:[id number] Age/Sex: 60 / M ADM Date: 03/30/25 Loc: CT Attending Dr: Dior Khan NP Ordering Physician: Dior Khan NP Date of Service: 03/30/25 Procedure(s): CT lung screening low-dose Accession Number(s): [id number] cc: Shaikh Claus Cain The [place] [address] Patient Name: EVANGELINA PLAZA MRN: [id number] date: 1965 Sex: M Assigned Patient Location: CT Current Patient Location: CT Accession/Order Number: [id number] Exam Date: 03/30/2025 15:15 Report Date: 03/30/2025 [...] Miguel M.D. 03/30/2025 3:19 PM Dictation Location: [place] [address] Electronically authenticated by: [id number] Y Date: 03/30/2025 15:19 Dictated By: Flakito Miguel D.O. Signed By: 03/30/25 1522 DD/ 1519 TD/TT: Foreign Broadcast Specialist: [facility] HOSPITALTori HealthcareRadiology Study observation (narrative)[facility] HealthcareCT LUNG SCREENING LOW DOSEOrdered By: Radiologist Radiology on 89-31-9958ZSTM Locally Work Phone: ct LUNG SCREENING LOW DOSEon 45-28-0478[place], [place] [address] CT Scan Report Signed Patient: EAVNGELINA PLAZA MR#: [id number] : 1965 Acct:[id number] Age/Sex: 59 / M ADM Date: 02/23/24 Loc: CT Attending Dr: Shaikh Payton Devlin Ordering Physician: Shaikh Claus Cain Date of Service: 02/23/24 Procedure(s): CT lung screening low-dose Accession Number(s): [id number] cc: Shaikh Claus Cain [place] [address] Patient Name: EVANGELINA PLAZA MRN: [id number] date: 1965 Sex: M Assigned Patient Location: CT Current Patient Location: CT Accession/Order Number: [id number] Exam Date: 02/23/2024 14:00 Report Date: 02/23/2024 [...] Six month LDCT. Electronically authenticated by: EVANGELINA JUNE Date: 02/23/2024 14:49 Dictated By: Evangelina June M.D. Signed By: 02/23/24 1452 DD/ 1449 TD/TT: Foreign Broadcast Specialist:TBHRadiology, Radiologist, - 02/23/2024 [place] [address] CT Scan Report Signed Patient: EVANGELINA PLAZA MR#: [id number] : 1965 Acct:[id number] Age/Sex: 59 / M ADM Date: 02/23/24 Loc: CT Attending Dr: Shaikh Payton Devlin Ordering Physician: Shaikh Claus Cain Date of Service: 02/23/24 Procedure(s): CT lung screening low-dose Accession Number(s): [id number] cc: Shaikh Claus Cain [address] [address] Patient Name: EVANGELINA PLAZA MRN: [facility]:[id number] date: 1965 Sex: M Assigned Patient Location: CT Current Patient Location: CT Accession/Order Number: [id number] Exam Date: 02/23/2024 14:00 Report Date: 02/23/2024 [...] Six month LDCT. Electronically authenticated by: EVANGELINA JUNE Date: 02/23/2024 14:49 Dictated By: Evangelina June M.D. Signed By: 02/23/24 1452 DD/ 1449 TD/TT: Foreign Broadcast Specialist: [facility] HealthcareRadiology Study observation (narrative)KB HealthcareCT LUNG SCREENING LOW DOSEOrdered By: Radiologist Radiology on 63-94-2945EUCT Locally Work Phone: Vital Signs Date TimeVital SignValuePerforming ElhzmglrwXkxxtiox73-69-4444 13:13-0400Body gpythg163.07 cmE[facility] Work Phone: 1(212)[address] [place], [place] 4966810-02-2025 13:13-0400 Body mass index (BMI) [Ratio]25.7 kg/m2[facility] Work Phone: 1(916)[address] [place], [place] 4966810-02-2025 13:13-0400 Body qnaqbk21.55 kgE[facility] Work Phone: 1(326)[address] [place], [place] 4966810-02-2025 13:13-0400 Diastolic blood wqivqdxh01 mm[Hg][facility] Work Phone: 1(149)[address] [place], [place] 4966810-02-2025 13:13-0400 Heart rate59 /minE[facility] Work Phone: 1(051)[address] [place], [place] 4966810-02-2025 13:13-0400 Respiratory rate20 /minE[facility] Work Phone: 1(999)[address] [place], [place] 4966810-02-2025 13:13-0400 SaO2% (BldA) [Mass fraction]98 %[facility] Work Phone: 1(924)[address] [place], [place] 4966810-02-2025 13:13-0400 Systolic blood iqvifjot031 mm[Hg][facility] Work Phone: 1(057)[address] [place], [place] 4966809-25-2025 13:41-0400 Heart rate67 /min[facility] Work Phone: 1(599)[address] [place], [place] 4966809-25-2025 13:41-0400 Respiratory rate18 /min[facility] Work Phone: 1(419)[address]09-25-2025 12:00-0400 Body pxannagspaw25.3 [degF][facility] Work Phone: 1(096)[address] [place], [place] 4966809-25-2025 12:00-0400 Diastolic blood mgvglalr09 mm[Hg][facility] Work Phone: 1(221)[address] [place], [place] 4966809-25-2025 12:00-0400 SaO2% (BldA) [Mass fraction]98 %[facility] Work Phone: 1(859)[address] [place], [place] 4966809-25-2025 12:00-0400 Systolic blood vebfssyt569 mm[Hg][facility] Work Phone: 1(011)[address] [place], [place] 4966809-25-2025 06:00-0400 Body gurihj99.6 kgE[facility] Work Phone: 1(839)[address] [place], [place] 4966809-24-2025 17:00-0400 Inhaled oxygen flow rate1 L/minE[facility] Work Phone: 1(456)[address] [place], [place] 4966809-24-2025 12:00-0400 Inhaled oxygen okyhryeaqveuk04 %[facility] Work Phone: 1(892)[address] [place], [place] 4966809-23-2025 13:12-0400 Body oxwmbc985.26 cmE[facility] Work Phone: 1(526)[address] [place], [place] 4966807-22-2025 14:11-0400 Body mass index (BMI) [Ratio]25.43 kg/m2Dior Khan STAFF NURSE MIDWIFE Work Phone: [facility] HospitalUbjrbnomdg28-68-3204 14:11-0400Body temperature 98.49 [degF]Dior Khan STAFF NURSE MIDWIFE Work Phone: [facility] HospitalOouklkrzla24-46-5575 14:11-0400Body .38 kgDior Khan STAFF NURSE MIDWIFE Work Phone: [facility] HospitalHgvkmacdik84-86-2509 14:11-0400Diastolic blood ykfdeemo11 mm[Hg]Dior Khan STAFF NURSE MIDWIFE Work Phone: [facility] HospitalZixhzdqmtq32-78-4644 14:11-0400Heart rate80 /min Dior Khan STAFF NURSE MIDWIFE Work Phone: [facility] HospitalQdsnpirxgu20-77-4519 14:11-0400Respiratory rate22 /minDior Khan STAFF NURSE MIDWIFE Work Phone: [facility] HospitalGeeoulslfs51-17-0488 14:11-9984FqO3% (BldA) [Mass fraction]95 %Dior Khan STAFF NURSE MIDWIFE Work Phone: [facility] HospitalFgnsfqlwoq62-51-2981 14:11-0400Systolic blood mm[Hg]Dior Khan STAFF NURSE MIDWIFE Work Phone: [place] [address]Byobdfkqyr09-73-5452 11:06-0500Body ewymtx249.8 cmBrinesnabila Waldrop STAFF NURSE MIDWIFE Work Phone: [place] [address]Mdyqlhwcqz14-80-1090 11:06-0500Body mass index (BMI) [Ratio]26.69 kg/s8Vuvbctkz Waldrop STAFF NURSE MIDWIFE Work Phone: [facility] HospitalSzyghzusyq60-38-9440 11:06-0500Body temperature 97.11 [degF]Digna Waldrop STAFF NURSE MIDWIFE Work Phone: [place] [address]Xyiqvggkuu51-62-3151 11:06-0500Body .37 kgBrinesnabila Waldrop STAFF NURSE MIDWIFE Work Phone: [place] [address]Wykjzlcgoo14-85-3722 11:06-0500Diastolic blood bdxwqder39 mm[Hg]Digna Waldrop STAFF NURSE MIDWIFE Work Phone: [place] [address]Zpxmqlwpyq90-01-1966 11:06-0500Heart rate70 /min Digna Waldrop STAFF NURSE MIDWIFE Work Phone: [place] [address]Pqjtxumjie05-30-5407 11:06-0500Respiratory rate18 /minBrmarino Waldrop STAFF NURSE MIDWIFE Work Phone: noCarondelet HealthGttgulfnnd18-88-4190 11:06-4043VnJ4% (BldA) [Mass fraction]97 %Digna Waldrop STAFF NURSE MIDWIFE Work Phone: noms Upmkktwqzr23-75-4145 11:06-0500Systolic blood vgbxakrj979 mm[Hg]Digna Shahtrick STAFF NURSE MIDWIFE Work Phone: [facility] Encounters Encounter DateEncounter TypeCare ProviderFacilityStart: 07-27-2025 End: 34-00-2673ywjzmmyevjKejz [facility] Work Phone: [facility] Work Phone: Start: 07-27-2025 End: 78-69-3539Taolgsh encounter procedureSregine Vergara MD-[facility] Work Phone: Start: 07-18-2025 End: 40-01-6204kohwayebgrJLYIOXD PROVIDERFacility:METROHealthStart: 07-18-2025 End: 59-52-1307Xvmngqocms and management of inpatientSregine Macdonald Facility:[facility]tart: 99-38-1175Xdd-patient / Non-visitChristopher Paris Hirsch MDAt[facility] Work Phone: Start: 53-94-8876Ifz-patient / Non-visitSregine Vergara MD-[facility] Work Phone: Start: 05-16-2025 End: 55-58-6824tatbkzwgmkXUXJ AICHHOLZNot AvailableStart: 05-16-2025 End: 00-01-6834Cbzzjo flowsheetLisa Bill STAFF NURSE MIDWIFE Work Phone: [facility] FMStart: 05-16-2025 End: 32-16-2785Dixhdx flowsheetLisa Aichmarlonz STAFF NURSE MIDWIFE Work Phone: [facility] FMStart: 05-16-2025 End: 97-55-5888Amrquh outpatient visit 25 minutesLisa Desouzaholz STAFF NURSE MIDWIFE Work Phone: [facility] FMComment on above:Chronic hand pain, left (Primary Dx); Cigarette nicotine dependence without complication; Gastroesophageal reflux disease without esophagitis; Pulmonary emphysema, unspecified emphysema type (HCC)Start: 04-24-2025 End: 76-52-6899IijpnaSoxw Aichholz STAFF NURSE MIDWIFE Work Phone: [facility] FMComment on above:Dyspepsia and disorder of function of stomachMed RefillStart: 04-05-2025 End: 63-00-7540WopztzZeag Radhahholz STAFF NURSE MIDWIFE Work Phone: [facility] FMComment on above:Pulmonary emphysema, unspecified emphysema type (CMS/HCC)Start: 03-30-2025 End: 43-97-1940Sqjepvwfg Result EncounterLisa Radhahholz STAFF NURSE MIDWIFE Work Phone: [facility] External Department UnsolicitedStart: 03-30-2025 End: 35-36-3127Xbqequidq Result EncounterLisa Radhahholz STAFF NURSE MIDWIFE Work Phone: [facility] External Department UnsolicitedStart: 03-27-2025 End: 12-42-0112MebvaaDewp Radhahholz STAFF NURSE MIDWIFE Work Phone: NOYG CWM FMComment on above:Pulmonary emphysema, unspecified emphysema type (CMS/HCC) (Primary Dx)Start: 03-16-2025 End: 48-93-8401xrpexnzbtdSHOU AICHHOLZNot AvailableStart: 09-14-2024 End: 63-56-9915Zapjcg flowsheetBrittany Waldrop STAFF NURSE MIDWIFE Work Phone: [facility] FMStart: 09-14-2024 End: 97-15-3317Wegnse flowsheetBrittany Waldrop STAFF NURSE MIDWIFE Work Phone: [facility] FMStart: 09-14-2024 End: 25-66-2286qnwwoyvbmlHXKLWPYP FITZPATRICKNot AvailableStart: 09-14-2024 End: 07-77-9580Gjexmv outpatient visit 15 minutesDigna Waldrop STAFF NURSE MIDWIFE Work Phone: [facility] FMComment on above:Gastroesophageal reflux disease without esophagitis (Primary Dx); Pulmonary emphysema, unspecified emphysema type (CMS/HCC); Dyspepsia and disorder of function of stomachStart: 02-23-2024 End: 12-88-3476Xkiklsqum Result EncounterSneil Cain MD Work Phone: [facility] External Department UnsolicitedStart: 02-23-2024 End: 38-17-3382Iztbfzozr Result EncounterSneil Cain MD Work Phone: [facility] External Department UnsolicitedStart: 02-16-2024 End: 04-18-0271Tjpxucy encounter procedureBrmarino Waldrop STAFF NURSE MIDWIFE Work Phone: noms HealthcareStart: 12-29-2023 End: 88-90-2970Zcqwzjz encounter statusBrmarino Waldrop STAFF NURSE MIDWIFE Work Phone: noms HealthcareStart: 08-16-2020 End: 73-55-3809Nwkgeti encounter procedureLISA AICHHOLZFacility:H1 Procedures DateProcedureProcedure DetailPerforming ClinicianStart: 75-92-1846QX LUNG SCREENING LOW DOSELisa Aichholz STAFF NURSE MIDWIFE Work Phone: Start: 85-27-3312KB LUNG SCREENING LOW DOSESneil Cain MD Work Phone: Plan of Treatment DateCare ActivityDetailAuthorStart: 56-83-4756QnguxkowwZanesville City Hospital Start: 84-12-0901GzxbwzgjjOhio Valley Hospitaltart: 15-44-6985MbncedelhOhio Valley Hospitaltart: 35-43-0477FagousbmsnkuSonqgybetOhio Valley Hospitaltart: 50-96-3398Hmjdsfdc to clinical allergistOhio Valley Hospitaltart: 22-03-1708Vsuijkcd admissionOhio Valley Hospitaltart: 24-11-9410Asxrbexnd vaccinationNOOK HealthcareStart: 05-16-2025 End: 10-61-4794Xvjuzumbzxc sedimentation rateSedimentation rate, automated Lab Routine Chronic hand pain, left Expected: 05/16/2025 (Approximate), Expires: 05/16/2026NOOK HealthcareComment on above:Expected: 05/16/2025 (Approximate), Expires: 05/16/2026Start: 05-16-2025 End: 88-05-8667Kvnpbja encounter rsjfewixs59/22/2025 2:00 PM EDT Office Visit [facility] [address] [place] [address] Dior Khan NP [address] [place] [address] [facility] FMStart: 05-16-2025 End: 42-59-5434Zxyiguqigw factor [Units/volume] in Serum or PlasmaRheumatoid factor Lab Routine Chronic hand pain, left Expected: 05/16/2025 (Approximate), Expires: 05/16/2026[facility] Work Phone: Comment on above:Expected: 05/16/2025 (Approximate), Expires: 05/16/2026Start: 05-16-2025 End: 49-31-2068Mgdvd [Mass/volume] in Serum or PlasmaUric acid Lab Routine Chronic hand pain, left Expected: 05/16/2025 (Approximate), Expires: 05/16/2026 [facility] HealthcareComment on above:Expected: 05/16/2025 (Approximate), Expires: 05/16/2026Start: 05-16-2025 End: 06-21-5815ME Hand - left 2 ViewsXR hand 1 or 2 views left Imaging Routine Chronic hand pain, left Expected: 05/16/2025 (Approximate), Expires: 05/16/2026 [facility] HealthcareComment on above:Expected: 05/16/2025 (Approximate), Expires: 05/16/2026Start: 03-14-2025 End: 75-97-7479Kacamjy encounter cvmmurrqe90/20/2025 2:00 PM EDT Office Visit [facility] [address] [place] [address] Digna Waldrop, ROCIO [address] [place] [address] [facility] FMStart: 84-99-8042Ioooccato vaccinationInfluenza Vaccine (#1)[facility] HealthcareStart: 03-71-0201Bmdlasuly for malignant neoplasm of colonUT[facility] VALLEY [facility]ITAL HealthcarePatient EducationHeart attack - Discharge instructions Drug Eluting Stents Angina Know [facility]sDun[facility] Work Phone: Patient referralDunlap Memorial Hospital [facility]tr Work Phone: Referral to cardiac rehabilitation programZanesville [facility] Immunizations Immunization DateImmunizationNotesCare OhogzxkjBeweugat36-44-6638hkjrikhntr, tetanus toxoids and pertussis vaccineLisa Aichholz STAFF NURSE MIDWIFE Work Phone: [facility] HospitalVmpiwgaupq13-56-1973druetlz toxoid, reduced diphtheria toxoid, and acellular pertussis vaccine, adsorbedLisa Aichholz STAFF NURSE MIDWIFE Work Phone: [facility] HospitalUjfsrlexyr64-16-8902vegfnncmm, injectable, quadrivalent, preservative freeLisa Aichholz STAFF NURSE MIDWIFE Work Phone: [facility] HospitalYkrxidzcod11-56-2796tpazemupw virus vaccine, unspecified formulationDigna Waldrop STAFF NURSE MIDWIFE Work Phone: [facility] Payers DatePayer CategoryPayerPolicy [id number]-pay2017Medicaid (Managed Care)[employer] Member Subscriber Plan / Payer (Effective 2017-Present) Name: Evangelina Plaza Relation to Subscriber: Self Name: Evangelina Plaza Payer ID: Not on file Group ID: Not on file Type: Not on file Address: [address] [place] [id number] [id number] 2.0.1.115636.3.57[id number] 2.0.1.185223.3.57[id number] 2.0.1.839176.3.57[id number] 2.0.1.146665.3.57[id number] 2.0.1.810343.3.579.2.531 Social History DateTypeDetailFacilityStart: 12-29-2023 End: 78-65-5789Hkwkgsg smoking status NHISSmokes tobacco dailyNOMS Healthcare History of tobacco useCigarette SmokerNOMS HealthcareHistory of tobacco use Passive smokerNOMS HealthcareStart: 12-29-2023 End: 42-95-9882Yfnmcms use and exposureSmokeless tobacco non-userNOMS Healthcare Start: 02-16-2024 End: 23-26-3484Gsmdwmnnj beverage intakeLifetime non-drinker (finding)[facility] HealthcareStart: 02-16-2024 End: 95-24-4063Lrxpvax of Social functionNOMS HealthcareStart: 02-16-2024 End: 41-65-4539C7342 Health LiteracyNOMS HealthcareStart: 63-67-4255Yub often do you need to have someone help you when you read instructions, pamphlets, or other written material from your doctor or pharmacy [SILS]NeverNOMS HealthcareDo you belong to any clubs or organizations such as synagogue groups, unions, fraternal or athletic groups, or school groups?NoNOMS HealthcareAre you now , , , , never or living with a partner? Living with partnerNOMS HealthcareHow often to you have a drink containing alcohol?NeverNOMS HealthcareHow hard is it for you to pay for the very basics like food, housing, medical care, and heatingSomewhat hardNOMS HealthcareDo you feel stress - tense, restless, nervous, or anxious, or unable to sleep at night because yourmind is troubled all the time - these days [OSQ]Not at allNOMS Healthcare(I/We) worried whether (my/our) food would run out before (I/we) got money to buy more.Sometimes trueNOMS HealthcareThe food that (I/we) bought just didn't last, and (I/we) didn't have money to get more.Never trueNOMS Healthcare In the past 12 months, was there a time when you were not able to pay the mortgage or rent on time?YesNOMS HealthcareStart: 06-09-4633Czr assigned at birthNot on atrium healthNOOK HealthcareSexMale ([facility] Hospitaltart: 09-29-6534Mbz Assigned At [facility] Medical Equipment Procedure CodeEquipment CodeEquipment Original TextEquipment IdentifierDatesCL STENT ALYSON FRONTIER 3.5 X 15FDAStart: 91-39-1356GB STENT ALYSON FRONTIER 3.5 X 15 FDAStart: 07-18-2025 Functional Status InbfKtgfulmaszXpzoisUxsnxhvq72-45-9670Miwyj score [AUDIT-C]0 09/11/2024 11:36 AM EST Mychart, GenericNOMS Cihizpeynm20-52-7171Xmf often do you have a drink containing alcohol?Never 09/11/2024 11:36 AM EST Mychart, Generic NeverNOMS Uwkogqsixm32-95-4825Hozmitcrza statusPatient does not drink 09/11/2024 11:36 AM EST Mychart, Generic Patient does not drinkNOMS Tpahjsuzyn69-06-1605Aad often do you have 6 or more drinks on 1 occasion?Never 09/11/2024 11:36 AM EST Re, Generic [facility] Clinical Notes 09-14-2024 to 07-18-2025 Note Date & JumjDzfcIluvkyqg44-31-9295 Evaluation note* Diagnosis Onset Date Resolution Status Admit Date Cardiac arrest acuteSeptember 2024 12:15pmRespiratory failureacuteSeptember 2024 12:15pmST elevation myocardial infarction (STEMI) of anterior wall, initial episodacuteSeptember 2024 12:15pm [facility] Work Phone: 1(499) 141-756107-22-2025 History of Present illness Narrative* Dior Khan NP - 05/16/2025 2:31 PM EDTAssociated Problem(s): Chronic hand pain, left Check xray uric acid and RA * BALWINDER RODRIGUEZ - 05/16/2025 2:00 PM EDT Left hand pain-possible RA started years ago, hand and knuckles swell up that can last a couple weeks at a time. * Dior Khan NP - 05/16/2025 2:00 PM EDT Images from the original note were not included. Evangelina Plaza is a 60 y.o. male presents with [...] of the risks of continued smoking: stroke, MO, all forms of cancer, lung disease, and . Options for quitting smoking include: cold turkey, hypnosis, acupuncture, nicotine replacement meds(gum, lozenges, and patches), Buproprion, and Varenicline. At this time pt is encouraged to evaluate their goals for wanting to quit smoking, and reach out toprovider when ready to start this process Chronic hand pain, left Check xray uric acid and RA Relevant Orders Rheumatoid factor Uric acid Sedimentation rate, automated XR hand 1 or 2 views left * Dior Khan NP - 05/16/2025 7:03 AM EDTAssociated Problem(s): COPD (chronic obstructive pulmonary disease) with emphysema (HCC) Current meds; albuterol, and incruse Urged to quit smoking * Dior Khan NP - 05/16/2025 7:03 AM EDTAssociated Problem(s): Gastroesophageal reflux disease without esophagitis Recommendations: [...] have scopes Discussed barretts and ulcer etc * Dior Khan NP - 05/16/2025 7:03 AM EDTAssociated Problem(s): Cigarette nicotine dependence without complication The patient has been advised of the risks of continued smoking: stroke, MO, all forms of cancer, lung disease, and . Options for quitting smoking include: cold turkey, hypnosis, acupuncture, nicotine replacement meds(gum, lozenges, and patches), Buproprion, and Varenicline. At this time pt is encouraged to evaluate their goals for wanting to quit smoking, and reach out toprovider when ready to start this process documented in this [facility]07-22-2025 Instructions* Patient Instructions* Dior Khan NP - 05/16/2025 2:00 PM EDT Please get labs completed: fasting Check xray hand GI doctor , please call office in Dr Camilo Scott [phone] [place] [address] documented in this [facility]06-30-2025 Telephone encounter Note* Telephone Encounter - BALWINDER RODRIGUEZ - 04/24/2025 4:31 PM EDT Text [address] [employer] Yeah, this is Evangelina Plaza. I need you to call me back for a refill on my I c I can tell you what the your name is sold. You are 40 mg stemming. I need to refill on them. Can you please let me know ifI can get it? Thank you. [facility] HospitalOtsekdezyu86-53-7996 Miscellaneous Notes* Telephone Encounter - BALWINDER RODRIGUEZ - 04/24/2025 4:31 PM EDT Text [address] [employer] Yesusie, this is Evangelina Plaza. I need you to call me back for a refill on my I c I can tell you what the your name is sold. You are 40 mg stemming. I need to refill on them. Can you please let me know ifI can get it? Thank you. documented in this encounterLakeland Regional HospitalDcvcwccbwy80-80-1866 History of Present illness Narrative* Digna Waldrop NP - 09/14/2024 11:22 AM ESTAssociated Problem(s): COPD (chronic obstructive pulmonary disease) with emphysema ([facility]) Currently uses Incruse daily and Albuterol once weekly. Current 0.5ppd smoker. Patient encouraged to quit smoking but not interested in it Used to be on symbicort. Current smoker. Has morning cough and HARKINS. Ordered PFTs - did not get it done. * Digna Waldrop NP - 09/14/2024 11:21 AM ESTAssociated Problem(s): Gastroesophageal reflux disease without esophagitis Currently taking Prontonix. States he feels symptoms are well controlled at this time. Was previously referred to GI for EGD- pt did not follow up. Is not interested at this time. Will revisit at next OV * Digna Waldrop NP - 09/14/2024 11:00 AM EST Images from the original note were not included. Subjective Patient ID: Evangelina Plaza is a 59 y.o. male who presents [...] Neurological: Negative for dizziness, tremors, syncope, weakness, light- headedness and headaches. Psychiatric/Behavioral: Negative for decreased concentration and suicidal ideas. The patient is notnervous/anxious. Hematological: Does not bruise/bleed easily. Endocrine: Negative [...] HFA (Ventolin HFA) 90 mcg/act inhaler Umeclidinium [place] (Incruse Ellipta) 62.5 MCG/ACT aerosol powder Gastroesophageal [...] 40 MG EC tablet documented in this encounterNOOK HealthcareEvaluation note* Diagnosis Current smoker- Primary Encounter for medical [...] function of stomach documented in this encounter [facility] HealthcareEvaluation note* Diagnosis Current smoker- Primary Encounter for medical [...] type (CMS/HCC)- Primary documented in this encounter [facility] HealthcareEvaluation note* Diagnosis Current smoker- Primary Encounter for medical [...] emphysema type (CMS/HCC) documented in this encounter [facility] HealthcareEvaluation note* Diagnosis Current smoker- Primary Encounter for medical [...] function of stomach documented in this encounter [facility] HealthcareEvaluation note* Diagnosis Current smoker- Primary Encounter for medical [...] emphysema type (HCC) documented in this encounter [facility] HealthcareEvaluation note* Author Adonis Macdonald [facility] 1:30pm1. Status post witnessed cardiac arrest successfully resuscitated 2. Heart failure with mild to moderately reduced ejection fraction. EF post PCI/anterior STEMI 35 to 40%. Patient currently clinically euvolemic and well compensated. Mild lower extremity venous insufficiency bilaterally 3. Musculoskeletal chest pain status post CPR 4. No bleeding problems on dual antiplatelet therapy 5. No untoward side effects from high intensity statin therapy 6. NYHA Ib 7. CCS 0. [facility] Additional Instructions DISCHARGE INSTRUCTIONS FOR ANGIOPLASTY/CORONARY/PERIPHERAL/STENT IMPLANT FOR ADULT ANTICOAGULATION -Since the greatest risk of a blood clot forming with the stent occurs in the first 2-3 weeks after implantation, you will need to take anticoagulants for at least 12 months. ANTICOAGULATION MEDICATION: Aspirin 81mg once a day and Ticagrelor (Brilinta) 90mg twice a day STATIN MEDICATION: atorvastatin (Lipitor) 80 mg daily Drug-Eluting Stent (IVANA) DO NOT discontinue Brilinta and/or Aspirin during the first few months regardless of what you are advised by your family doctor or pharmacist, without first calling the ear nose throat physician who implanted the stent. If you require pain relief during this time, please take only ACETAMINOPHEN (TYLENOL)- NO additional aspirin or ibuprofen. DISCHARGE ACTIVITIES ARE FOLLOWS: First week after discharge: -Take it easy at home, no strenuous activity. -Do not lift or pull objects over 10-15 pounds, including children, and groceries for four weeks. If puncture site is at wrist do NOT lift more than 10 pounds for 5 days. - May walk up stairs. -May shower. -No excessive scrubbing of the affected site (groin). -May ride in car. -May resume sexual intercourse after 1-2 weeks. -No MRI for 12 days. -May drive in 4-7 days. -If puncture site is at the wrist do not manipulate the wrist for 24 hours, and no soaking wrist for three days. Second Week: -May take a bath -May start walking 3 times a week for 15-20 minutes at a leisurely pace. You should be able to carry on a conversation comfortably without feeling winded. -No strenuous activity as in jogging, running, weight lifting, stair steppers, etc. until the ear nose throat physician approves these activities. Check with the ear nose throat physician on your first follow-up visit. CALL YOUR LINTER SAW SHARPENER: -If bleeding should occur from the catheter insertion site- apply pressure to the site then immediately call us. -Report any fever, redness, drainage, increased swelling, or firmness at the catheter insertion site. Some bruising or slight swelling may be present at the time of discharge. -Should arm or leg become cold, numb, white, or blue, contact the ear nose throat physician immediately. -IF you should experience episodes of angina, e.g. chest discomfort, heaviness, tightness, pressure burning with or without radiation to the neck, jaw, arms or back- use 1 Nitrostat tablet under your tongue every 5-10 minutes and up to three tablets. IF NO RELIEF, CALL 911 or GO TO THE NEAREST EMERGENCY ROOM. -Please notify our office if you have recurrent angina. -Cardiac Rehab Education Provided. Participation in the Cardiopulmonary Rehabilitation program is recommended. The attending ear nose throat physician or a nurse clinician should provide you with specific instructions regarding activity, diet, medications, and further follow up for you. Follow the medication instructions provided on your discharge. If the dosages and instructions on this sheet differ from the dosage and instructions on the bottle, follow the instructions on the bottle. [facility] is not responsible for incorrect prescription information provided by the patient during their visit. Do not stop your medications without consulting your health care provider. Please take the list with you to your next doctor's appointment.[facility] Work Phone: Reason for referral (narrative)No reason for referral information availableDunlap Memorial Hospital Ctr Work Phone: Summary Purpose Family History No Family History Records FoundNo Family History Records FoundNo Family History Records FoundNo Family History Records Found Advance Directives Advance Directive Response Recorded Date/ Time Advance Directives No June 9:32am Chief Complaint and Reason for Visit Chief Complaint Admit Date Stemi July 18, 2025 12:00am Stemi July 18, 2025 12:15pm Reason for Visit Admit Date Cardiac arrest July 18, 2025 12:15pm Respiratory failure July 18, 2025 12:15pm ST elevation myocardial infa rction (STEMI) of anterior wall, initial episod July 18, 2025 12:15pm Chief Complaint Admit Date Stemi July 18, 2025 12:00am Stemi July 18, 2025 12:15pm [facility] [place] 27, 2025 12 :58pm Reason for Visit Admit Date Cardiac arrest July 18, 2025 12:15pm Respiratory failure July 18, 2025 12:15pm ST elevation myocardial infa rction (STEMI) of anterior wall, initial episod July 18, 2025 12:15pm Heart failure with reduced ejection frac tion (HFrEF) July 27, 2025 12:58pm History of ST elevation myocardial infar ction (STEMI) July 27, 2025 12:58pm History of sudden cardiac arrest July 27, 2025 12:58pm Ischemic cardiomyopathy July 27 12:58pm Additional Source Comments (unrecognized sect ion and content) No Status Records FoundNo Status Records FoundNo Status Records FoundNo Status Records Found INFORMATION SOURCE (unrecogn ized section and content) DATE CREATED AUTHOR 08/20/2020 [facility] DATE CREATED AUTHOR AUTHOR'S ORGANIZ ATION 05/18/2025 [facility] DATE CREATED AUTHOR AUTHOR'S ORGANIZ ATION 07/21/2025 [facility] DATE CREATED AUTHOR AUTHOR'S ORGANIZ ATION 08/13/2025 [facility] Care Teams (unrecognized sec tion and content) Team MemberRelationshipSpecialtyStart DateEnd Date Shaikh Cain MD [address] [place] [address] [facility]04/25/24 Jeramie Mendez MD [address] [place] [address] [facility] Digna Waldrop NP [address] [place] [address] [facility]08/29/24Team MemberRelationshipSpecialtyStart DateEnd Date Shaikh Cain MD [address] [place] [address] PCP - [facility]04/25/24 Jeramie Mendez MD [address] [place] [address] PCP - [facility]08/29/24 Digna Waldrop NP [address] [place] [address] [facility]08/29/24Team MemberRelationshipSpecialtyStart DateEnd Date Shaikh Cain MD [address] [place] [address] [facility]04/25/24 Jeramie Mendez MD [address] [place] [address] [facility]08/29/24 Digna Waldrop NP [address] [place] [address] [facility]08/29/24Te MemberRelationshipSpecialtyStart DateEnd Date Shaikh Cain MD [address] [place] [address] [facility]04/25/24 Jeramie Mendez MD [address] [place] [address] [facility]08/29/24 Digna Waldrop NP [address] [place] [address] Nurse [facility]08/29/24Team MemberRelationshipSpecialtyStart DateEnd Date Shaikh Cain MD [address] [place] [address] [facility]04/25/24 Jeramie Mendez MD [address] [place] [address] [facility]08/29/24 Digna Waldrop NP [address] [place] [address] [facility]08/29/24Te MemberRelationshipSpecialtyStart DateEnd Date Shaikh Cain MD [address] [place] [address] [facility]04/25/24 Jeramie Mendez MD [address] [place] [address] [facility]08/29/24 Digna Waldrop, STAFF NURSE MIDWIFE [address] [place] [address] Nurse [facility]08/29/24Team MemberRelationshipSpecialtyStart DateEnd Date Shaikh Cain MD [address] [place] [address] [facility]04/25/24 Jeramie Mendez MD [address] [place] [address] PCP - [facility]08/29/24 Digna Waldrop NP [address] [place] [address] [facility]08/29/24Team MemberRelationshipSpecialtyStart DateEnd Date Shaikh Cain MD [address] [place] [address] [facility]04/25/24 Jeramie Mendez MD [address] [place] [address] PCP - [facility]08/29/24 Digna Waldrop, ROCIO [address] [place] [address] [facility]08/29/24 Team Status: Active Member Role Status Dates [facility] Primary Care Provider Active Team Status: Active Member Role Status Dates [facility] Primary Care Provider Active Start: July 18, 2025 Dallin Rauschending ProviderActiveStart: July 18, 2025 Adonis Macdonald MDOther ProviderActiveStart: July 18, 2025 Team Status: Active Member Role Status Dates [facility] Primary Care Provider Active Start: July 18, 2025 Brittany Rausch ProviderActiveStart: July 18, 2025 Adonis Macdonald MDOther ProviderActiveStart: July 18, 2025 Jesica Moreno RNOther ProviderActiveStart: July 18, 2025 Sammi Etienne , KRISTINOther ProviderActiveStart: July 18, 2025 Juliette Coburn , KRISTINOther ProviderActiveStart: July 18, 2025 Carol Holcomb , KRISTINOther ProviderActiveStart: July 18, 2025 Iliana Hollis , KRISTINOther ProviderActiveStart: July 18, 2025 Vicki Nash RNOther ProviderActiveStart: July 18, 2025 Luba Espinoza MDOther ProviderActiveStart: July 18, 2025 Ankur Abbott , DOOther ProviderActiveStart: July 18, 2025 Rashawn Das MDOther ProviderActiveStart: July 18, 2025 Noah Romero , DOOther ProviderActiveStart: July 18, 2025 Mehul Archer MDOther ProviderActiveStart: July 18, 2025 Carolyn Armstrong MDOther ProviderActiveStart: July 18, 2025 Kimani Cui DOOther ProviderActiveStart: July 18, 2025 Larry Venegas MDOther ProviderActiveStart: July 18, 2025 Laureen Min , APRNOther ProviderActiveStart: July 18, 2025 Fei Bustos MDOther ProviderActiveStart: July 18, 2025 Debby Moore MDOther ProviderActiveStart: July 18, 2025 Britney Garnett MDOther ProviderActiveStart: July 18, 2025 Kimani Motta , DOOther ProviderActiveStart: July 18, 2025 Diamond Grullon MDOther ProviderActiveStart: July 18, 2025 Lc Pereira MDOther ProviderActiveStart: July 18, 2025 Fe Chow , STAFF NURSE MIDWIFE-COther ProviderActiveStart: July 18, 2025 Soo Little , APRNOther ProviderActiveStart: July 18, 2025 Jorge Alberto Montero MDOther ProviderActiveStart: July 18, 2025 Kee Mitchell MDOther ProviderActiveStart: July 18, 2025 Andreina Lima MDOther ProviderActiveStart: July 18, 2025 Bravo Almanza , DOOther ProviderActiveStart: July 18, 2025 Ekaterina Marie , APRNOther ProviderActiveStart: July 18, 2025 Henrique Ling DOOther ProviderActiveStart: July 18, 2025 Rome Ni MDOther ProviderActiveStart: July 18, 2025 Lina Grady , APRNOther ProviderActiveStart: July 18, 2025 Donna Hightower , APRNOther ProviderActiveStart: July 18, 2025 Javier Callejas MDOther ProviderActiveStart: July 18, 2025 Isael Trevino MDOther ProviderActiveStart: July 18, 2025 Lalito Jaquez , DOOther ProviderActiveStart: July 18, 2025 Matias Easton MDOther ProviderActiveStart: July 18, 2025 Ravi Nino MDOther ProviderActiveStart: July 18, 2025 Mayra East , APRNOther ProviderActiveStart: July 18, 2025 Julissa Rosales MDOther ProviderActiveStart: July 18, 2025 Wilberto Vallejo MDOther ProviderActiveStart: July 18, 2025 Larry Rose MDOther ProviderActiveStart: July 18, 2025 Ethan Velarde MDOther ProviderActiveStart: July 18, 2025 Mary Grace Sheikh , APRNOther ProviderActiveStart: July 18, 2025 Inna Brewer , APRNOther ProviderActiveStart: July 18, 2025 Ray Parsons MDOther ProviderActiveStart: July 18, 2025 Mimi Allen RNOther ProviderActiveStart: July 18, 2025 Ajit Hirsch MDAttending ProviderActiveStart: July 18, 2025 Ajit Hirsch MDOther ProviderActiveStart: July 18, 2025 Team Status: Inactive Member Role Status Dates [facility] Dept Primary Care Provider Active Start: July 27, 2025 End: July 27, 2025StAna Walters ProviderActiveStart: July 27, 2025 End: July 27, 2025Team MemberRelationshipSpecialtyStart DateEnd Date Shaikh Cain MD PCP - GeneralInternal Medicine12/28/2410 Shaikh Cain MD [address] [place] [address] PCP - [facility]04/25/24 Jeramie Mendez MD [address] [place] [address] PCP - [facility]08/29/24 Digna Waldrop NP [address] [place] [address] [facility]08/29/24 Reason for Visit (unrecogniz ed section and content) ReasonCommentsFollow-upReasonOnset DateCommentsMed [id number]/24/2025 Goals (unrecognized section and content) Goals may be documented in a n alternate sectionGoals may be documented in an alternate section FOR RECORDS PERTAINING TO PATIENTS WHO ARE [...] BE BASED ON THE PRIMARY CLINICAL RECORDS. [facility] [email or web address] [facility]. provides no warranty or guarantee of the accuracy or completeness of information in this document.
--- NOTE | 2025-09-12 22:20 | PC.NURSE ---
per manager trade, this patient is not any more pain and wants to go home. i walked down to this patient's room to find this patient awake and alert sitting upright on the bed. this patient said I want to go home, my pain has gone away. I said this this patient are you sure you want to go home this patient said yes, my stomach pain is gone I gave this patient verbal instruction from the AMA form and this patient did sign this AMA form. i instructed this patient if this pain comes back or if you change your mind come back, we are where
== END 2025-09-12 22:20 | disposition left against medical advice (07) ==
PROVIDERS: Emergency Provider Internal Medicine
DX: R10.31 Right lower quadrant pain (principal); Z53.29 Procedure and treatment not carried out because of patient's decision for other reasons
CPT/HCPCS: 80053; 81001; 83605; 83690; 84484; 99281

== ENCOUNTER 2025-10-25 22:20 | Emergency (ER) | payer OTHER, SELFPAY ==
--- OUTSIDE RECORDS SUMMARY | 2025-10-16 10:32 | XMS_ITS | Continuity of Care Document ---
Author Organization [facility] Address [address] [place] [address] Phone Care Team Providers Care Photo Lab Manager Name Role Phone Health Dept Qamar Gayathri Primary Care Provider [phone] Adonis Macdonald MD Admit Provider Adonis Macdonald MD Other Provider Jesica Moreno RN Other Provider Unavailable Sammi Etienne RN Other Provider Unavailable Juliette Coburn RN Other Provider Unavailable Carol Holcomb RN Other Provider Unavailable Iliana Hollis RN Other Provider Unavailable Vicki Nash RN Other Provider Unavailable Luba Espinoza MD Other Provider [phone] Ankur Abbott DO Other Provider Rashawn Das MD Other Provider [phone] Noah Romero DO Other Provider Mehul Archer MD Other Provider Carolyn Armstrong MD Other Provider Kimani Cui DO Other Provider Unavailab Larry Hickey MD Other Provider Unavailable Laureen Min APRN Other Provider [phone] Fei Bustos MD Other Provider Debby Moore MD Other Provider Unavailable Britney Garnett MD Other Provider [phone] Frings, Kimani DO Other Provider [phone] Diamond Grullon MD Other Provider Lc Pereira MD Other Provider Fe Chow DIRECTOR OF FINANCIAL AID-C Other Provider Soo Little CHILD CARE NURSE Other Provider Unavailable Jorge Alberto Montero MD Other Provider Kee Mitchell MD Other Provider Andreina Lima MD Other Provider Unavailable Bravo Almanza DO Other Provider Ekaterina Marie CHILD CARE NURSE Other Provider Henrique Ling DO Other Provider [phone] Rome Ni MD Other Provider [phone] Lina Grady CHILD CARE NURSE Other Provider Donna Hightower CHILD CARE NURSE Other Provider Javier Callejas MD Other Provider Unavailable Isael Trevino MD Other Provider Lalito Jaquez DO Other Provider Matias Easton MD Other Provider [phone] Rvai Nino MD Other Provider Mayra East CHILD CARE NURSE Other Provider Unavailable Julissa Rosales MD Other Provider Wilberto Vallejo MD Other Provider Larry Rose MD Other Provider [phone] Ethan Velarde MD Other Provider Mary Grace Sheikh CHILD CARE NURSE Other Provider Inna Brewer CHILD CARE NURSE Other Provider Ray Parsons MD Other Provider [phone] Mimi Allen RN Other Provider Unavailable Ajit Hirsch MD Attending Provider Ajit Hirsch MD Other Provider Adonis Macdonald MD Attending Provider PierceCecy DO Primary Care Provider Pierce, Cecy DO Attending Provider [phone] Tera Rojas APRN Attending Provider Care Teams Patient Care Team Team Status: Active Member Role/Relationship Status Dates Cecy Pelayo DO Primary Care Provider Active Visit Care Team Team Status: Active Member Role/Relationship Status Dates [facility] Active Start: July 18, 2025 Brittany Rausch ProviderActiveStart: July 18, 2025 Adonis Macdonald MDOther ProviderActiveStart: July 18, 2025 Jesica Moreno , KRISTINOther ProviderActiveStart: July 18, 2025 Sammi Etienne , KRISTINOther ProviderActiveStart: July 18, 2025 Juliette Coburn , RNOther ProviderActiveStart: July 18, 2025 Carol Holcomb , KRISTINOther ProviderActiveStart: July 18, 2025 Iliana Hollis , KRISTINOther ProviderActiveStart: July 18, 2025 Vicki Nash , KRISTINOther ProviderActiveStart: July 18, 2025 Luba Espinoza MDOther ProviderActiveStart: July 18, 2025 Ankur Abbott , DOOther ProviderActiveStart: July 18, 2025 Rashawn Das MDOther ProviderActiveStart: July 18, 2025 Noah Romero , DOOther ProviderActiveStart: July 18, 2025 Mehul Archer MDOther ProviderActiveStart: July 18, 2025 Carolyn Armstrong MDOther ProviderActiveStart: July 18, 2025 Kimani Cui , DOOther ProviderActiveStart: July 18, 2025 Larry Venegas MDOther ProviderActiveStart: July 18, 2025 Laureen Flaco-Akash , APRNOther ProviderActiveStart: July 18, 2025 Fei Bustos MDOther ProviderActiveStart: July 18, 2025 Debby Moore MDOther ProviderActiveStart: July 18, 2025 Britney Garnett MDOther ProviderActiveStart: July 18, 2025 Kimani Motta , DOOther ProviderActiveStart: July 18, 2025 Diamond Grullon MDOther ProviderActiveStart: July 18, 2025 Lc Pereira MDOther ProviderActiveStart: July 18, 2025 Fe Chow , DIRECTOR OF FINANCIAL AID-COther ProviderActiveStart: July 18, 2025 Soo Little , APRNOther ProviderActiveStart: July 18, 2025 Jorge Alberto Montero MDOther ProviderActiveStart: July 18, 2025 Kee Mitchell MDOther ProviderActiveStart: July 18, 2025 Andreina Lima MDOther ProviderActiveStart: July 18, 2025 Bravo Almanza , DOOther ProviderActiveStart: July 18, 2025 Ekaterina Marie , APRNOther ProviderActiveStart: July 18, 2025 Henrique Ling , DOOther ProviderActiveStart: July 18, 2025 Rome Ni [...] Ethan Velarde MDOther ProviderActiveStart: July 18, 2025 Jacobo Chow ProviderActiveStart: July 18, 2025 Inna Brewer APRNOther ProviderActiveStart: July 18, 2025 Ray Parsons MDOther ProviderActiveStart: July 18, 2025 Mimi Allen RNOther ProviderActiveStart: July 18, 2025 Ajit Hirsch MDAttlupillo ProviderActiveStart: July 18, 2025 Ajit Hirsch MDOther ProviderActiveStart: July 18, 2025 Visit Care Team Team Status: Inactive Member Role/Relationship Status Dates [facility] Primary Care Provider Active Start: July 27, 2025 End: July 27, 2025Stnaz Macdonald MDAttending ProviderActiveStart: July 27, 2025 End: July 27, 2025 Visit Care Team Team Status: Inactive Member Role/Relationship Status Dates Cecy Pelayo DO Primary Care Provider Active S tart: September 26, 2025 End: September 26, 2025Cecy Pelayo DOAttending ProviderActiveStart: September 26, 2025 End: September 26, 2025 Patient Care Team Team Status: Inactive Member Role/Relationship Status Dates Cecy Pelayo DO Primary Care Provider Active S tart: October 16, 2025 End: October 16, 2025Keith Brown ProviderActiveStart: October 16, 2025 End: October 16, 2025 Chief Complaint and Reason for Visit Chief Complaint Admit Date Stemi July 18, 2025 12:15pm [facility] 07/20July 27, 2025 12 :58pm med refills September 26, 2025 2 :30pm Follow up for GERD October 16, 2025 2:32pm Reason for Visit Admit Date ST elevation myocardial infa rction (STEMI) of anterior wall, initial episod July 18, 2025 12:15pm Respiratory failure July 18, 2025 12:15pm Cardiac arrest July 18, 2025 12:15pm Heart failure with reduced ejection frac tion (HFrEF) July 27, 2025 12:58pm History of ST elevation myocardial infar ction (STEMI) July 27, 2025 12:58pm History of sudden cardiac arrest July 27, 2025 12:58pm Ischemic cardiomyopathy July 27 12:58pm COPD (chronic obstructive pulmonary dise ase) September 26, 2025 2:30pm GERD without esophagitis September 26 2:30pm History of ST elevation myocardial infar ction (STEMI) September 26, 2025 2:30pm Ischemic cardiomyopathy September 26 2:30pm Tobacco abuse September 26, 2025 2 :30pm Dyspepsia October 16, 2025 2:32pm Postprandial abdominal pain in right upp er quadrant October 16, 2025 2:32pm Reason for Referral Type Reason(s) Provider Provider Contact Information P ajvider Address Start Date Referral to gastroenterologistGastroesophageal reflux disease without esophagitis Tobacco abuseUrsula Rausch MDWork Phone: [phone] [facility] [facility] [address] - Gastro-esophageal reflux disease without esophagitis,Z72.0 - Tobacco useFPG GastroenterologyWork Phone: [phone] [facility] [address] [facility] [id number] Health Concerns Concerns Start Date Complete smoking cessation s tatus post primary PCI to LAD in the treatment of acute inferior STEMI complicated by witnessed cardiac arrest status post successful resuscitation Allergies, Adverse Reactions, Alerts Allergen Type Severity Reaction Last Updated Verified Status Penicillins Allergy Moderate Hives October 16, 2025 2:45pm Yes Active Social History Smoking Status Status Start Date End Date Date of Observa tion Smokes tobacco daily (finding) October 11, 2025 1:32pm Observation Status Observation Response Date of Response Legal Sex Male (finding) Sex Assigned At BirthMaleApril 1964 Family History Relationship Condition Age at Onset Recorded Date/T shantell mother Malignant neoplasm Unknown family memberMalignant neoplasm of stomachUnknown Problems Active Problems Problem Diagnosis/Recorded Date Onset Date Stat us Postprandial abdominal pain in right upper quadrant October 16, 2025 3:03pm Unknown Active Heart failure with reduced e jection fraction (HFrEF) July 27, 2025 12:01pm Unknown Active History of ST elevation myoc ardial infarction (STEMI) July 27, 2025 12:01pm Unknown Active ST elevation myocardial infa rction (STEMI) of anterior wall, initial episode of care July 18, 2025 10:40am Unknown Active Emphysema (subcutaneous) (rondon rgical) resulting from a procedure July 06, 2025 9:51am Unknown Activ e Dyspepsia October 16, 2025 3:09pm Unknown A ctive History of sudden cardiac arrest July 27, 2025 12: 00pm Unknown Active Ischemic cardiomyopathy July 27, 2025 12:01pm Unkn own Active Tobacco abuse September 26, 2025 3:13pm Unknown A ctive GERD without esophagitis July 24, 2025 12:03pm Unknown Active COPD (chronic obstructive pu lmonary disease) July 18, 2025 12:07pm Unknown Active Inactive/Resolved Problems Problem Diagnosis/Recorded Date Onset Date Stat Cardiac arrest July 18, 2025 10:40am Unknown Resolved Respiratory failure July 18, 2025 5:02pm Unknow n Resolved Medications Medication Status Dose Units Route Directions Qty Days Refills S tart Date Stop Date End Date Reason(s) Instructions Adherence Dtq3399-Hrk Kqb-Aolj-Rfr-Asb-C (Plenvu) 140-9-5.2 gram powder in packet, sequential Discontinued 140 ML PO .COMPLEX 3 1 0 March 20, 2025 11:00pm July 20, 2025 2:42pmFirst dose at 4:00 pm the day before colonoscopy, Second dose at 11:00 pm the night before the colonoscopyFluticasone Propion- Salmeterol (Advair Diskus) 250-50 mcg/dose blister with nurxoaIfadfcpcgmhs7NDK INHALATIONEvery 12 gjqgd208Bdlanerfr 10th, 2025 11:00pmDe2024 3:16pm Subcutaneous emphysema resulting from a procedure Emphysema (subcutaneous) resulting from a procedure, initial encounterrinse mouth after usePantoprazole 40 mg tablet,delayed release (DR/EC)Wzbdflzgkxqd08ZY POTwice chhrg411Iubnbufwy 29th, 2025 12:02pmNov2024 9:33pm Gastroesophageal reflux disease without esophagitis Gastro-esophageal reflux disease without esophagitisAtorvastatin 80 mg tablet Qtnwyiylqrjs73VARJXykuw xaetpxs15186Iuwhevnb 19th, 2025 8:32amDecemb2024 3:16pmMetoprolol Succinate 25 mg tablet extended release 24 llEtztiiggmlza51.5MG PODaily at plvbpxi95832Iigjluws 2024 8:33amDeph[facility] 20[facility] 3:16pm Clopidogrel (Plavix) 75 mg lguduaNrpfusjqirvc23GNOGYdwba45247Ryetkrns 2024 8:33amDephoenix [facility] hospital 2024 3:16pmAspirin (Children's Aspirin) 81 mg tablet,mxnvmlzpOstyqoflamib78WBILMhxdg65296Pcbbziiu 2024 8:33amDephoenix memorial hospital 2024 3:16pmNitroglycerin 0.4 mg tablet, sublingualActive0.7VUCNBAHBFRJHB4Y as needed for Chest Flmy68859Ntzwmicm 2024 3:37pmComplies with drug therapyValsartan 80 mg eciqhtZuxosgjtnebf42OLRJOybyo at rboivbj88464Kcihlphx 2024 3:37pmDephoenix memorial hospital 2024 3:16pmPantoprazole 40 mg tablet,delayed release (DR/EC)Dntxaalulwae10RRCWUnkfg ycbwm399Jyrsveon 2024 9:31pm September 26, 2025 3:16pmGastroesophageal reflux disease without esophagitis Gastro-esophageal reflux disease without esophagitisAlbuterol Sulfate 90 mcg/actuation HFA aerosol olkoqloMmfnygcmnwfu0QVGSOCZJXKJIGBXxtif 6 hours as needed for shortness of breath or wheezing8.50Tristar [facility] 2024 12:00am September 26, 2025 3:16pmFluticasone Propion-Salmeterol (Advair Diskus) 250-50 mcg/dose blister with gkqpuyUwedfn4TACUYSJOJVPAXYkoup 12 lnvbm026Riplmyxu 2024 7:50amSubcutaneous emphysema resulting from a procedure Emphysema (subcutaneous) resulting from a procedure, initial encounterrinse mouth after useComplies with drug therapyPantoprazole 40 mg tablet,delayed release (DR/EC)DiscontinuedMGPOSept2024 11:00pmSepremier health [facility] 2024 12:10pmTiotropium [place] (Spiriva Respimat) 2.5 mcg/actuation mistDiscontinued INHALATIONSe2024 11:00pmOct2024 12:07pmAtorvastatin 80 mg CelmkhVbhtqngjkwsr23AXTYXpuav bjltbfb66972Okqgjlzui 24th, 2025 11:00pm September 13, 2025 8:33amNitroglycerin 0.4 mg Tablet, SublingualDiscontinued0.4 BZOXVDKFCNSQA4E as needed for Chest Dwpb13020Xmrmvarie2024 11:00pm September 14, 2025 3:37pmAspirin (Children's Aspirin) 81 mg Tablet,Chewable Kpdssaeuvfqp45TAMHEzrey17367Fcvedyrtl 24th, 2025 11:pmSeptember 13, 2025 8:33amValsartan 40 mg EpmuypYgvwlrwbcyan11ZOPELmhcg pjgsu63260IudobtjkmJuly 19, 2025 11:00pm[facility] 20[facility] 12:38pmMetoprolol Tartrate 25 mg Tablet Fopoqrnwyrlv52.5MGPOThree times iqvge95176Qiqouhfxv2024 11:00pmE[facility] 2024 12:36pmClopidogrel (Plavix) 75 mg edghonEzhlmkcsayjc42HLLBJlwzy91055 July 19, 2025 11:pmSeptember 13, 2025 8:33amSpironolactone 25 mg vjgmwqYukzlsiqinbw17BACGOkjud37177Noyvwqz 1st, 2025 11:00pm[facility]20[facility] 3:16pmMetoprolol Succinate 25 mg tablet extended release 24 npRpdjskgqbgjp53.5MG PODaily at wygutaa72617Avgwanc2024 11:2024 8:33am Valsartan 80 mg cbsmymBvzknpasaglo11GNSUEfbeh at eresjgl34500Pbliskz 1st, 2025 11:September 14, 2025 3:37pmAlbuterol Sulfate 90 mcg/actuation HFA aerosol sokbowsRemogbtgfzdn5ENEXGTYLNSUJHJNhphk 6 hours as needed for shortness of breath or wheezing8.55September 26, 2025 3:14pmDeaspirus [facility]2024 3:19pmAspirin (Children's Aspirin) 81 mg tablet,fqknecorVhndwjbvfque52STTKWjcpr47021Jrgqdmxu 2nd, 2025 3:14pmSeptember 26, 2025 3:19pmAtorvastatin 80 mg umlerfTczbypjfjgec15 MGPOEvery yddutkk682Jcdoqczz2024 3:14pmSeptember 26, 2025 3:19pm Clopidogrel (Plavix) 75 mg mmlcneDujwxsefzgrl58ZSPHKljwq42073Xjctipgz 2nd, 2025 3:14pmSeptember 26, 2025 3:19pmFluticasone Propion-Salmeterol (Advair Diskus) 250-50 mcg/dose blister with lutrtdOvgnooqktjfm5EOCMXFBKMPSFGKudik 12 beosi790 September 26, 2025 3:14pmSeptember 26, 2025 3:19pmSubcutaneous emphysema resulting from a procedure Emphysema (subcutaneous) resulting from a procedure, initial encounterrinse mouth after useMetoprolol Succinate 25 mg tablet extended release 24 hr Eimqoaromkpg46.5MGPODaily at coajjlm89373Pbxhzmuz2024 3:15pmSeptember 26, 2025 3:19pmPantoprazole 40 mg tablet,delayed release (DR/EC)Rkrtvamhgeou77QMKM Twice sponq0991Hldrhiig2024 3:15pmSeptember 26, 2025 3:19pm Gastroesophageal reflux disease without esophagitis Gastro-esophageal reflux disease without esophagitisSpironolactone 25 mg tablet Zoxsnkzlbtbs49WMAZZhajo38894Mqsszotd 2nd, 2025 3:15pmSeptember 26, 2025 3:19pm Cimetidine 400 mg fybjzzKppimngywequ969RAJFIvxbl at hcuxjrb236Gisumofb 2nd, 2025 12:00amce2024 3:19pmValsartan 80 mg wnnmjeBxwomwwrzfzg83ATMSMqsgd at lhrocfy31300Bccyebzp2024 3:15pmSeptember 26, 2025 3:19pmAlbuterol Sulfate 90 mcg/actuation HFA aerosol ihjgrepCycxvf9PJUDRXJOCWOUVPYxzac 6 hours as needed for shortness of breath or wheezing8.55September 26, 2025 3:18pmComplies with drug therapyAspirin (Children's Aspirin) 81 mg tablet,adkfemfpQdotxm20ARDNOgbpr 81435Jmceefvd2024 3:18pmComplies with drug therapyAtorvastatin 80 mg wqgrsaVvosyw99LWZAOptip szzaukm461Hlvhbnbc2024 3:18pmComplies with drug therapyCimetidine 400 mg jtrhxeFgxeaj477MPKQEexcl at pvtfiym894Vkivncko 2nd, 2025 3:18pmComplies with drug therapyClopidogrel (Plavix) 75 mg mfzwqqKhnhyo26XD OPNhwxj63149Cfjgfojk2024 3:18pmComplies with drug therapyFluticasone Propion-Salmeterol (Advair Diskus) 250-50 mcg/dose blister with device Jglikjbmyzue7NCJXPRXKBWQFZVcshs 12 sjilk308Yginfcwz2024 3:18pmDe2024 7:51amSubcutaneous emphysema resulting from a procedure Emphysema (subcutaneous) resulting from a procedure, initial encounterrinse mouth after useMetoprolol Succinate 25 mg tablet extended release 24 hrActive 12.5MGPODaily at cjfpezc61785Zqwbogru2024 3:18pmComplies with drug therapy Pantoprazole 40 mg tablet,delayed release (DR/EC)Ibdoqkakatlg02OVATAbjst daily 1802024 3:18pmDe2024 3:04pmGastroesophageal reflux disease without esophagitis Gastro-esophageal reflux disease without esophagitisSpironolactone 25 mg tablet Jlnqrf43ZJJLTzquw95746Zopriwiz 2nd, 2025 3:18pmComplies with drug therapy Valsartan 80 mg enqoolKlwkit67KQKKLltzn at qpdmopu39935Klunkuro2024 3:18pm Complies with drug therapy Medical Equipment Device Date Implanted Device Details CL STENT ALYSON FRONTIER 3.5 X 15 July 18, 2025 Vital Signs Vital Reading Result Reference Range Collection Date/Time Height 69 [in_i] July 18, 2025 12:50nhKtnflm25.60 kgSeptember 2024 5:00amBody Ghsvfwbxgng33.3 [degF]97.6-99.0September 2024 11:00amHeart Rate67 /min 60-100September 2024 12:41pmRespiratory rate18 /zey41-64Gtyghdvje 2024 12:41pmOxygen saturation by Pulse xdambcik86 %95-100September 2024 11:00amBP Sxpfzypg729 mm[Hg]100-140September 2024 11:00amBP Jgynojbib00 mm[Hg]60-100September 2024 11:00amInhaled oxygen dwhktqipkqnot25 % July 19, 2025 11:00amInhaled oxygen flow rate1 L/minSept2024 4:70seNlnkgp30.5 [in_i]July 27, 2025 12:12iuNxhiuu68.55 kgOctober 2024 12:13pmHeart Rate59 /ubi99-357Tcbscrq 2024 12:13pmRespiratory rate20 /min 12-24Oct2024 12:13pmOxygen saturation by Pulse %95-100 July 27, 2025 12:13pmBP Sbcjzvnr169 mm[Hg]100-140October 2024 12:13pmBP Tecsntxny37 mm[Hg]60-100October 2024 12:13pmBMI (Body Mass Index)25.7 kg/w4Sasrdoj 2024 12:48xiHoylwq90 [in_i]September 26, 2025 2:31pmWeight 81.19 kgDecember 2024 2:31pmHeart Rate84 /opb63-698Wqmfmslp 2nd, 2025 2:31pmRespiratory rate20 /jze57-54Qjzxeggr 2nd, 2025 2:31pmOxygen saturation by Pulse vuckezwo59 %95-100December 2024 2:31pmBP Csihalxm687 mm[Hg]100-140 September 26, 2025 2:31pmBP Kdncjszzq28 mm[Hg]60-100December 2024 2:31pmBMI (Body Mass Index)25.7 kg/u4Tjouwtml 2024 2:18qoMwtrvs33 [in_i]October 16, 2025 2:09cnSlasww23.19 kgDecember 2024 2:45pmBP Xolvmhvy671 mm[Hg] 100-140Deceer 2024 2:45pmBP Zyrzvbavp45 mm[Hg]60-100Deceer 2024 2:45pmBMI (Body Mass Index)25.7 kg/g2Bbhxoqry2024 2:45pm Advance Directives Advance Directive Response Recorded Date/ Time Advance Directives No June 8:32am Insurance Providers Guarantor Harjinder Recinos Address [address] [place] [id number] Info.Home Phone: Coverage Status Update:2025 Payer Group Member ID Coverage Type Subscriber Relationship to Subscriber Effective Date Expiration Date [employer] [id number] Jorje Id: [id number] [address] [place] [id number] Home Phone: Self Encounters Encounter Location(s) Arrival/Admit Date Discharge/Departure Date Discharge/Departure Disposition Provider(s) Non-patient / Non-visit -[facility] Pulmon jay July 18, 2025 12:15pm TAMMY Blackeparted Physician/Provider Office [facility] 2024 12:58pmOctober 2024 1:40pmDischarged to home care or self care (routine discharge)Ursula Rausch MDDeparted Physician/Provider Office Visit-[facility] 2024 2:30pmDecember 2024 3:06pmDischarged to home care or self care (routine discharge)FARIBA Gardnereparted Physician/Provider Office [facility] 20[facility] 2:32pmDecember 2024 3:30pmDischarged to home care or self care (routine discharge)Tera Rojas APRN Recent Diagnosis Onset Date Admit Date ST elevation myocardial infa rction (STEMI) of anterior wall, initial episod Unknown July 18, 2025 12: 15pm Respiratory failure Unknown July 182024 12:15pm Cardiac arrest Unknown July 18, 2025 12:15pm Heart failure with reduced e jection fraction (HFrEF) Unknown July 27, 2025 12:58pm History of ST elevation myoc ardial infarction (STEMI) Unknown July 27, 2025 12:58pm History of sudden cardiac arrest Unknown July 27, 2025 12:58pm Ischemic cardiomyopathy Unknown July 27, 2025 12:58pm COPD (chronic obstructive pulmonary disease) Unk nown September 26, 2025 2:30pm GERD without esophagitis Unknown Decembe r 2024 2:30pm History of ST elevation myoc ardial infarction (STEMI) Unknown September 26, 2025 2:30pm Ischemic cardiomyopathy Unknown September 26, 2025 2:30pm Tobacco abuse Unknown September 26 2:30pm Dyspepsia Unknown October 16, 025 2:32pm Postprandial abdominal pain in right upper quadrant Unknown October 16, 2025 2:32pm Assessments Author Adonis [facility] 2024 12:30pm1. Status post witnessed cardiac arrest successfully resuscitated [...] therapy 6. NYHA Ib 7. CCS 0. Plan of Treatment Author Adonis Macdonald [facility] 2024 12:30pm1. Begin MRA therapy with spironolactone 25 mg every morning 2. Continue ARB: Valsartan to 80 mg nightly 3. Continue beta-blockade and metoprolol succinate 12.5 mg nightly 4. Continue high intensity statin therapy with atorvastatin 80 mg daily 5. Continue dual antiplatelet therapy with aspirin 81 mg daily and clopidogrel 75 mg daily 6. Complete smoking cessation is strongly recommended 7. Will enroll in phase 2 monitored cardiac rehabilitation Author Cecy Pelayo [facility] 2024 3:13pmwill continue protonix BID but will add cimetidine and get referral to GI for EGD given smoking history and dual platelet therapy, smoker. continue statin, aspirin and plavix and BP control. Also currently in Cardiac rehab continue statin, aspirin and plavix and BP control. refill given on albuterol and Advair, has also cut smoking down to 6 cigs a day still smoking but less refills given; referral placed to GI for EGD evaluation; return to clinic 6 months or sooner if needed. [facility]- Will change patient from pantoprazole to lansoprazole 30 mg daily for treatment of potential atypical GERD symptoms. - Order right upper quadrant ultrasound to provide further workup of postprandial right upper quadrant sharp/stabbing pain. - Anti-reflux precautions discussed: ?? Loss weight ?? Elevate head of bed 4-6 inches when sleeping ?? Avoid eating within 3 hours before bedtime. ?? Maintain upright posture during and after eating. ?? Avoid clothing that is tight in the abdominal area. ?? Minimize narcotics ?? Avoid foods that make symptoms worse (examples include coffee, chocolate, alcohol, peppermint, and fatty foods) . Eat 5-6 small meals throughout the day instead of 2-3 large meals. ?? Do not use tobacco products ?? Minimize alcohol use ?? Avoid lying down for 3 hours after a meal - Also of note, patient has never undergone screening colonoscopy in the past. We will approach this subject when it is safe for patient to be taken off of Plavix therapy prior to undergoing colonoscopy. -Follow-up office in 6 weeks. Future Tests Future scheduled test information is unavailable Pending Tests Test Name Ordered Date Scheduled Date US abdomen limited October 16, 2025 3:02pm Future Visits Future appointment information is unavailable Future Procedures Procedure Name Ordered Date Scheduled Date Consult to Cardiac Rehabilitation Referral July 20, 2025 1:18pm 1 Days Admit Status Order July 18, 2025 10:39am July 18, 2025 10:39am Consult to Adult Hospitalist June 272024 10:41am July 18, 2025 10:41am Cardiology PRN Orders July 20, 2025 1:18a m July 20, 2025 1:18am Discharge Order July 20, 2025 1:38pm Jun 1:38pm Discharge Order July 20, 2025 3:33pm Jun 3:33pm Consult to Pulmonology July 18, 2025 2:12 pm July 18, 2025 2:12pm Future Medications Future medication information is unavailable Patient Instructions Instruction Admit Date Heart attack (DC) Drug Eluting Stents Angina Know your MedsSept2024 12:15pm
[2025-10-25 22:33] VITALS: BP 162/84; PULSE 84; TEMP 36.5; O2SAT 99; BMI 25.1
--- NOTE | 2025-10-25 22:34 | XR_ITS ---
The [address] [address] Patient Name: EVANGELINA PLAZA MRN: [id number] date: 1965 Sex: M Assigned Patient Location: ED.MAIN Current Patient Location: ED.MAIN Accession/Order Number: [id number] Exam Date: 10/25/2025 22:50 Report Date: 10/25/2025 22:58 At the request of: YAHIR MONSIVAIS MD Procedure: XR abdomen 1V XR abdomen 1V 10/25/2025 10:54 PM SIGNS AND SYMPTOMS: ^Pain, no bowel movement for 2 days PROTOCOL: Frontal radiograph of the abdomen and pelvis COMPARISON: None FINDINGS: There is a moderate to large amount of stool within the colon consistent with constipation. No radiographic evidence of free air or bowel obstruction. Degenerative changes are noted in the thoracolumbar spine and hips. XR/XR abdomen 1V IMPRESSION: There is a moderate to large amount of stool within the colon consistent with constipation. No radiographic evidence of free air or bowel obstruction. Impression dictated by: Isael Wolf M.D. 10/25/2025 10:58 PM Dictation Location: [place] [address] Electronically authenticated by: [id number] Y Date: 10/25/2025 22:58
--- NOTE | 2025-10-25 22:35 | ED.GENADUL1 ---
HPI HPI - General Adult General Chief complaint: Abdominal Pain Stated complaint: Abdominal Pain Time Seen by Provider: 10/25/25 22:28 History of Present Illness HPI narrative: 60-year-old male presents for abdominal pain. Is a cyst in his right upper quadrant and he has had it for 2 years. He states it was sharper tonight so he came in. No trauma or fever. He saw a pt sitter a few days ago and he was prescribed some medications and a gallbladder ultrasound was ordered for October 27. This is the same pain he has had for 2 years. No chest pain. Related Data Home Medications ?Medication ?Instructions ?Recorded ?Confirmed albuterol sulfate 90 mcg/actuation 2 puff inhalation Q4H PRN 09/12/25 10/25/25 aerosol inhaler shortness of breath or wheezing aspirin 81 mg chewable tablet 1 tab PO DAILY 09/12/25 10/25/25 atorvastatin 80 mg tablet 80 mg PO QPM 09/12/25 10/25/25 clopidogrel 75 mg tablet 75 mg PO DAILY 09/12/25 10/25/25 fluticasone 250 mcg-salmeterol 50 1 inh inhalation Q12H 09/12/25 10/25/25 mcg/dose blistr powdr for inhalation (Advair Diskus) metoprolol succinate 25 mg 12.5 mg PO QPM 09/12/25 10/25/25 tablet,extended release 24 hr nitroglycerin 0.4 mg sublingual 0.4 mg sublingual Q5M PRN chest 09/12/25 10/25/25 tablet pain pantoprazole 40 mg tablet,delayed 40 mg PO BID 09/12/25 10/25/25 release spironolactone 25 mg tablet 25 mg PO DAILY 09/12/25 10/25/25 tiotropium bromide 2.5 2 puff inhalation DAILY 09/12/25 10/25/25 mcg/actuation mist for inhalation (Spiriva Respimat) valsartan 80 mg tablet 80 mg PO QPM 09/12/25 10/25/25 cimetidine 400 mg tablet 400 mg PO BEDTIME 10/25/25 10/25/25 lansoprazole 30 mg capsule,delayed mg PO DAILY 10/25/25 release Allergies Allergy/AdvReac Type Severity Reaction Status Date / Time Penicillins Allergy Unknown Verified 04/19/24 00:32 Opioid HPI Opioid Management Most Recent Opioid Data: Last Pain Scale 8 Today, 22:33 Review of Systems ROS Narrative A ten point review of systems is negative except as noted above. PFSH PFSH Social History Little interest or pleasure in doing things: not at all Feeling down, depressed, or hopeless: not at all Exam Narrative Exam Narrative: Nurses note and vital signs reviewed General:The patient appears well and in no apparent distress.Patient is resting comfortably on cart. Skin:Warm, dry, no pallor noted.There is no rash noted. Head:Normocephalic, atraumatic Eye: Normal conjunctiva, no drainage Ears, Nose, Mouth, and Throat: oral mucosa is moist. Nares patent. Cardiovascular:Regular Rate and Rhythm Respiratory:Patient is in no distress, no accessory muscle use, lungs are clear to auscultation, no wheezing, rales or rhonchi Back:non-tender, no CVA tenderness bilaterally to percussion. GI: Soft and nondistended. Minimal tenderness in the right upper quadrant without distention rebound guarding or mass. Musculoskeletal: The patient has no evidence of calf tenderness, no pitting edema, symmetrical pulses noted bilaterally Neurological:A&O, normal speech Psychiatric:Cooperative Constitutional Vital Signs, click to edit/add: Last Vital Signs Temp 97.7 F 10/25/25 22:33 Pulse 84 10/25/25 22:33 Resp 18 10/25/25 22:33 BP 162/84 H 10/25/25 22:33 Pulse Ox 99 10/25/25 22:33 O2 Del Method Room Air 10/25/25 22:33 Course Vital Signs Vital signs: Vital Signs Temperature 97.7 F 10/25/25 22:33 Pulse Rate 84 10/25/25 22:33 Respiratory Rate 18 10/25/25 22:33 Blood Pressure 162/84 H 10/25/25 22:33 Pulse Oximetry 99 10/25/25 22:33 Oxygen Delivery Method Room Air 10/25/25 22:33 Temperature 97.7 F 10/25/25 22:33 Pulse Rate 84 10/25/25 22:33 Respiratory Rate 18 10/25/25 22:33 Blood Pressure 162/84 H 10/25/25 22:33 Pulse Oximetry 99 10/25/25 22:33 Oxygen Delivery Method Room Air 10/25/25 22:33 Medical Decision Making MDM Narrative Medical decision making narrative: Blood work is essentially normal. He was found to be constipated and was recommended MiraLAX. He will have his gallbladder ultrasound performed at his scheduled time in a few days. Treatment diagnosis and follow-up were discussed with the patient. Differential Diagnosis Differential Diagnosis: Constipation, pancreatitis, gallbladder disease Lab Data Lab results reviewed: Yes I reviewed the patient's lab results Labs: Lab Results 10/25/25 10/25/25 Range/Units 22:40 22:42 WBC 7.3 (4.0-11.0) 10^3/uL RBC 4.82 (4.70-6.10) 10^6/uL Hgb 14.2 (14.0-18.0) g/dL Hct 45.1 (42.0-54.0) % MCV 93.6 (80.0-94.0) fL MCH 29.5 (25.9-34.0) pg MCHC 31.5 (29.9-35.2) g/dL RDW 14.1 (11.0-15.0) % Plt Count 269 (150-450) 10^3/uL MPV 10.3 (9.5-13.5) fL Neut % (Auto) 69.5 (43.0-75.0) % Lymph % (Auto) 20.2 L (20.5-60.0) % Ashe % (Auto) 7.1 (1.7-12.0) % Eos % (Auto) 2.2 (0.9-7.0) % Baso % (Auto) 0.7 (0.2-2.0) % Neut # (Auto) 5.1 (1.4-6.5) 10^3/uL Lymph # (Auto) 1.5 (1.2-3.8) 10^3/uL Ashe # (Auto) 0.5 (0.3-0.8) 10^3/uL Eos # (Auto) 0.2 (0.0-0.7) 10^3/uL Baso # (Auto) 0.1 (0.0-0.1) 10^3/uL Abs Immat Gran (auto) 0.02 (0.00-0.03) 10^3/uL Imm/Tot Granulo (auto) 0.3 (0.0-0.5) % Sodium 142 (136-145) mmol/L Potassium 3.8 (3.5-5.1) mmol/L Chloride 105 (98-107) mmol/L Carbon Dioxide 28.7 (21.0-32.0) mmol/L Anion Gap 12.1 BUN 22.0 H (7.0-18.0) mg/dL Creatinine 1.16 (0.70-1.30) mg/dL Est GFR ( Amer) >60 (>=60 mL/min/1.73m^2) Est GFR (Non-Af Amer) >60 (>=60 mL/min/1.73m^2) BUN/Creatinine Ratio 19.0 Glucose 99 (74-106) mg/dL Calcium 9.0 (8.5-10.1) mg/dL Total Bilirubin 0.5 (0.2-1.0) mg/dL Direct Bilirubin 0.1 (0.0-0.2) mg/dL AST 17 (15-37) U/L ALT 24 (16-63) U/L Alkaline Phosphatase 159 H (46-116) U/L Total Protein 7.5 (6.4-8.2) g/dL Albumin 3.6 (3.4-5.0) g/dL Globulin 3.9 g/dL Albumin/Globulin Ratio 0.9 Amylase 47 (25-115) U/L Lipase 21.0 (16.0-77.0) U/L Urine Color Yellow (YELLOW) Urine Clarity Clear (CLEAR) Urine pH 5.5 (5.0-9.0) Ur Specific Cardale >=1.030 A (1.005-1.025) Urine Protein 100 A (NEG/TRACE) mg/dL Urine Glucose (UA) Negative (NEGATIVE) mg/dL Urine Ketones Trace A (NEGATIVE) mg/dL Urine Occult Blood Trace-i (NEGATIVE) Urine Nitrite Negative (NEGATIVE) Urine Bilirubin Negative (NEGATIVE) Urine Urobilinogen 0.2 (0.2-1.0) EU/dL Ur Leukocyte Esterase Negative (NEGATIVE) Urine RBC 2-5 A (0-2) #/HPF Urine WBC 5-10 A (NONE SEEN) #/HPF Ur Squamous Epith Cells Rare (NONE/RARE) #/LPF Urine Crystals None seen (None Seen) #/HPF Urine Bacteria Small A (NONE SEEN) #/HPF Urine Casts Seen A (NONE SEEN) #/LPF Hyaline Casts Rare Urine Mucus Moderate A (NONE SEEN) Ur Culture Indicated? Yes-[facility] [place] Imaging Data Abdominal x-ray: Radiologist's impression: ITS Impressions Abdomen X-Ray 10/25/25 22:34 IMPRESSION: There is a moderate to large amount of stool within the colon consistent with constipation. No radiographic evidence of free air or bowel obstruction. Impression dictated by: Isael Wolf M.D. 10/25/2025 10:58 PM Dictation Location: [employer] Electronically authenticated by: [id number] Y Date: 10/25/2025 22:58 Discharge Plan Discharge Chief Complaint: Abdominal Pain Clinical Impression: Constipation Patient Disposition: Home, Self-Care Time of Disposition Decision: 23:19 Condition: Good Mode of Transportation: Private Vehicle Prescriptions / Home Meds: No Action cimetidine 400 mg tablet 400 mg PO BEDTIME lansoprazole 30 mg capsule,delayed release(DR/EC) PO DAILY albuterol sulfate 90 mcg/actuation HFA aerosol inhaler 2 puff INHALATION Q4H PRN (Reason: shortness of breath or wheezing) aspirin 81 mg tablet,chewable 1 tab PO DAILY atorvastatin 80 mg tablet 80 mg PO QPM clopidogrel 75 mg tablet 75 mg PO DAILY fluticasone propion-salmeterol [Advair Diskus] 250-50 mcg/dose blister with device 1 inh INHALATION Q12H metoprolol succinate 25 mg tablet extended release 24 hr 12.5 mg PO QPM nitroglycerin 0.4 mg tablet, sublingual 0.4 mg sublingual Q5M PRN (Reason: chest pain) pantoprazole 40 mg tablet,delayed release (DR/EC) 40 mg PO BID spironolactone 25 mg tablet 25 mg PO DAILY Spiriva Respimat 2.5 mcg/actuation mist 2 puff INHALATION DAILY valsartan 80 mg tablet 80 mg PO QPM Print Language: Kazakh Instructions: Constipation (ED) Additional Instructions: [id number] MiraLAX for constipation. Referrals: Physician,Non-Staff, MD [Primary Care Provider] - 1 week
[2025-10-25 22:44] VITALS: O2SAT 100
[2025-10-25 22:51] VITALS: O2SAT 99
[2025-10-25 22:52] LABS: Hematocrit 45.1 % (42.0-54.0); Hemoglobin 14.2 g/dL (14.0-18.0); Immature Granulocytes Abs Auto 0.02 10^3/uL (0.00-0.03); Immature Granulocytes Pct Auto 0.3 % (0.0-0.5); Lymphocytes Absolute Auto 1.5 10^3/uL (1.2-3.8); Mean Corpuscular HGB Conc 31.5 g/dL (29.9-35.2); Mean Corpuscular Hemoglobin 29.5 pg (25.9-34.0); Mean Corpuscular Volume 93.6 fL (80.0-94.0); Platelet Count 269 10^3/uL (150-450); Red Blood Count 4.82 10^6/uL (4.70-6.10); White Blood Count 7.3 10^3/uL (4.0-11.0)
[2025-10-25 22:54] LABS: Glucose Urine UA NEGATIVE (NEGATIVE)
[2025-10-25 23:00] VITALS: BP 112/81; O2SAT 98
[2025-10-25 23:03] LABS: Cast Seen? SEEN #/LPF (NONE SEEN); Crystals Seen? None Seen #/HPF (None Seen)
[2025-10-25 23:04] LABS: Urine Culture Indicated YES-FRMC
[2025-10-25 23:08] LABS: Alanine Aminotransferase 24 U/L (16-63); Albumin Globulin Ratio 0.9; Albumin Level 3.6 g/dL (3.4-5.0); Alkaline Phosphatase 159 U/L (46-116); Amylase 47 U/L (25-115); Anion Gap 12.1; Aspartate Amino Transferase 17 U/L (15-37); Blood Urea Nitrogen 22.0 mg/dL (7.0-18.0); Calcium 9.0 mg/dL (8.5-10.1); Carbon Dioxide 28.7 mmol/L (21.0-32.0); Chloride 105 mmol/L (98-107); Estimated GFR (African America >60 (>=60 mL/min/1.73m^2); Estimated GFR (Non-African Ame >60 (>=60 mL/min/1.73m^2); Globulin 3.9 g/dL; Glucose 99 mg/dL (74-106); Lipase 21.0 U/L (16.0-77.0); Potassium 3.8 mmol/L (3.5-5.1); Sodium 142 mmol/L (136-145); Total Protein 7.5 g/dL (6.4-8.2)
[2025-10-25 23:10] VITALS: O2SAT 98
--- OUTSIDE RECORDS SUMMARY | 2025-10-25 23:12 | XMS_ITS | CCD ---
Author Organization [facility] Care Team Providers Care Palliative Care Nurse Name Role Phone DIOR KHAN Primary Care Unavailable YOLI GRADY Admitting Unavailable YOLI GRADY Attending Unavailable YOLI GRADY Consulting Unavailable Payton HYDE, Unavailable Jeramie Mendez MD Primary Care Provider [phone] Palma BAKER, Digna Unavailable [phone] Palma BAKER, Digna Unavailable DIOR KHAN Attending Unavailable DIOR KHAN Attending Unavailable DIGNA WALDROP Attending [facility], [facility] Primary Care Provider [phone] Adonis Macdonald MD Attending Provider [phone] Adonis Macdonald MD Other Provider Adonis Macdonald MD Admit Provider Josh FOSTER, Jesica Other Provider Unavailable Jaimie FOSTER, Sammi Other Provider Unavailable Irish RN, Juliette Other Provider Unavailable Aicha RN, Carol Other Provider Unavailable Bunny RNIliana Other Provider Unavailable Vicki Nash RN Other Provider Unavailable Luba Espinoza MD Other Provider Ankur Abbott DO Other Provider Rashawn Das MD Other Provider [phone] Noah Romero DO Other Provider Mehul Archer MD Other Provider Carolyn Armstrong MD Other Provider Kimani Cui DO Other Provider Unavailab Larry Hickey MD Other Provider Unavailable Laureen Min APRN Other Provider [phone] Fei Bustos MD Other Provider Debby Moore MD Other Provider Unavailable Britney Garnett MD Other Provider Kimani Motta DO Other Provider Diaomnd Grullon MD Other Provider Lc Pereira MD Other Provider Claudine BAKER-C, Fe Garcia Other Provider Soo Little APRN Other Provider Unavailable Jorge Alberto Montero MD Other Provider Stephen HYDE, Kee Other Provider Clarence HYDE, Andreina Other Provider Unavailable Bravo Almanza DO Other Provider Ekaterina Marie APRN Other Provider Henrique Ling DO Other Provider Last HYDE, Rome Vergara Other Provider Lina Grady APRN Other Provider [phone] Donna Hightower APRN Other Provider [phone] Britta HYDE, Javier Other Provider Unavailable Isael Trevino MD Other Provider Lalito Jaquez DO Other Provider Matias Easton MD Other Provider Ravi Nino MD Other Provider Mayra East APRN Other Provider Unavailable Julissa Rosales MD Other Provider Wilberto Vallejo MD Other Provider [phone] Milton HYDE, Larry Valle Other Provider Ethan Velarde MD Other Provider Mary Grace Sheikh APRN Other Provider [phone] Inna Brewer APRN Other Provider [phone] Ray Parsons MD Other Provider Mimi Allen RN Other Provider Unavailable Ajit Hirsch MD Attending Provider [phone] Ajit Hirsch MD Other Provider [phone] PROVIDER, UNKNOWN Attending Unavailable PROVIDER, UNKNOWN Admitting Unavailable Adonis Macdonald Attending Unavailable Renae, Adonis Admitting Unavailable Jesica Moreno Consulting [facility]available [facility] Unavailable Sammi Etienne Consulting [...] Motta Consulting Unavailable Diamond Grullon Consulting Unavailable Lc Pereira Consulting Unavailable Fe Chow Consulting Unavailable [...] Consulting Unavailsarah Cain MD, Primary Care Provider Payton HYDE, Unavailable Jeramie Mendez MD Primary Care Provider [phone] Palma BAKER, Digna Unavailable Allergies Allergy ClassificationReported Allergen(s)Allergy TypeDate of OnsetReaction(s) Facility (2 sources)PenicillinsDrug allergy (disorder)29-34-9617QwplsAhoBlanchard Valley [facility] (12 sources)PenicillinsDrug Gfbyyhneusd04-78-8842D[facility] (1 source)PenicillinsDrug allergy (disorder)21-60-7395HpakibwjuOhio State University [facility] Medications Current Medications MedicationDrug Class(es)DatesSig (Normalized)Sig (Original)[id number] 200 actuat albuterol 0.09 mg/actuat metered dose inhaler (13 sources)beta2-Adrenergic AgonistStart: 12-29-2023 End: 51-27-8992aelb 2 puff(s) by inhalation every four hours for wheezing albuterol HFA (Ventolin HFA) 90 mcg/act inhaler Indications: Pulmonary emphysema, unspecified emphysema type (HCC) Inhale 2 puffs every 4 (four) hours if needed for wheezing 18 g 1 09/14/2024 09/14/2025 Activeaspirin 81 mg chewable tablet (2 sources)Platelet Aggregation Inhibitor, Nonsteroidal Anti-inflammatory Drug Start: 76-76-5470pujy 1 tablet by mouth once dailyAspirin (Children's Aspirin) 81 mg Tablet,Chewable Active 81 MG PO Daily July 202:00am Complies with drug therapyatorvastatin 80 mg oral tablet (2 sources)HMG-CoA Reductase InhibitorStart: 13-68-7467xmow 1 tablet by mouth once daily in the eveningAtorvastatin 80 mg Tablet Active 80 MG PO Every evening July 20, 2025 12:00am Complieswith drug therapyclopidogrel 75 mg oral tablet (2 sources)P2Y12 Platelet InhibitorStart: 28-96-5034cakz 1 tablet by mouth once dailyClopidogrel (Plavix) 75 mg tablet Active 75 MG PO Daily 90 90 July 20, 2025 12:00am Complieswith drug qttucip63 actuat fluticasone propionate 0.25 mg/actuat / salmeterol 0.05 mg/actuat dry powder inhaler (11 sources)Corticosteroid, beta2-Adrenergic AgonistStart: 61-17-3969Jjgyqleyxcu Propion-Salmeterol (Advair Diskus) 250-50 mcg/dose blister with device Active 1 INH INHALATION Every 12 hours 60 July 06, 2025 12:00am rinse mouth after use Complies with drug therapyStart: 03-27-2025 End: 42-35-3747wxtg 1 puff(s) by mouth in the morningFluticasone-Salmeterol (Advair Diskus) 250-50 MCG/ACT aerosol powder Indications: Pulmonary emphysema, unspecified emphysema type (HCC) Inhale 1 puff in the morning and 1 puff before bedtime. Rinse mouth after use. 60 each 2 04/05/2025 Isyger43 hr metoprolol succinate 25 mg extended release oral tablet (3 sources)beta-Adrenergic BlockerStart: 65-43-4987fcug 2 tablets by mouth once daily at bedtimeMetoprolol Succinate 25 mg tablet extended release 24 hr Active 12.5 MG PO Daily at bedtime 45 90 July 27, 2025 12:00am Complies with drug therapyStart: 07-20-2025 End: 57-56-2932Ukzembabec Tartrate 25 mg Tablet Discontinued 12.5 MG PO Three times daily 45 30 July 20, 2025 12:00am July 27, 2025 1:36pm nitroglycerin 0.4 mg sublingual tablet (2 sources)Nitrate VasodilatorStart: 11-24-2146Ptqcftlcqxxrw 0.4 mg Tablet, Sublingual Active 0.4 MG SUBLINGUAL Q5M as needed for Chest Pain 25 30Sept2024 12:00am Complies with drug therapyspironolactone 25 mg oral tablet (1 source)Aldosterone AntagonistStart: 39-21-2840flxi 1 tablet by mouth once dailySpironolactone 25 mg tablet Active 25 MG PO Daily 90 July 27, 2025 12:00am Complies with drug therapy7 actuat umeclidinium 0.0625 mg/actuat dry powder inhaler (5 sources)AnticholinergicStart: 02-16-2024 End: 40-92-0335kfxq 1 puff(s) by inhalation once dailyUmeclidinium [place] (Incruse Ellipta) 62.5 MCG/ACT aerosol powder Indications: Pulmonary emphysema, unspecified emphysema type (CMS/HCC) Inhale 1 puff Daily 30 each 2 09/14/2024 12/13/2024 Activevalsartan 80 mg oral tablet (3 sources)Angiotensin 2 Receptor BlockerStart: 97-82-4544pffo 1 tablet by mouth once daily at bedtimeValsartan 80 mg tablet Active 80 MG PO Daily at bedtime 90 July 27, 2025 12:00am Complies with drug therapyStart: 07-20-2025 End: 64-86-2462moct 1 tablet by mouth twice dailyValsartan 40 mg Tablet Discontinued 40 MG PO Twice daily 60 30 July 20, 2025 12:00am 2024 1:38pm Completed/Discontinued Medications MedicationDrug Class(es)DatesSig (Normalized)Sig (Original)[id number] Bem-Xech-Okk-Asb-C (2 sources)Osmotic Laxative, Vitamin CStart: 03-21-2025 End: 66-05-7615qync 1 dose by mouth once daily in the dejpesrBmm7635-Hyh Kia-Ooom-Lvb-Asb-C (Plenvu) 140-9-5.2 gram powder in packet, sequential Discontinued 140 ML PO .COMPLEX 3 March 21, 2025 12:00am July 20, 2025 3:42pm First dose at 4:00 pm the day before colonoscopy, Second dose at 11:00 pm the night before the joylrgqokyf406 actuat budesonide 0.16 mg/actuat / formoterol fumarate 0.0048 mg/actuat / glycopyrrolate 0.009 mg/actuat metered dose inhaler (1 source)Corticosteroid, beta2-Adrenergic AgonistStart: 03-16-2025 End: 88-95-0002antg 2 puff(s) by inhalation in the morning Glqwcip-Tpeccqypjwj-Fpajitjfty (Breztri Aerosphere) 160-9-4.8 MCG/ACT aerosol Indications: Pulmonary emphysema, unspecified emphysema type (CMS/HCC) Inhale 2 puffs in the morning and 2 puffs before bedtime. 10.7 g 2 03/16/2025 03/27/2025 Discontinued (Cost of medication)pantoprazole 40 mg delayed release oral tablet (16 sources)Proton Pump InhibitorStart: 03-16-2025 End: 36-54-5449Fnrnaxpmpcod 40 mg tablet,delayed release (DR/EC) Discontinued MG PO July 18, 2025 12:00am July 24, 2025 1:10pmStart: 03-10-2024 End: 42-83-9982abpl 1 tablet by mouth before mealtimepantoprazole (ProtoNix) 40 MG EC tablet Indications: Dyspepsia and disorder of function of stomach Take 1 tablet (40 mg) by mouth in the morning. Take before meals. Do not crush, chew, or split.. 90 tablet 1 09/14/2024 03/13/2025 Hmsytw73 actuat tiotropium 0.0025 mg/actuat inhalation spray (10 sources)AnticholinergicStart: 07-18-2025 End: 81-49-3997Wgaoledlin [place] (Spiriva Respimat) 2.5 mcg/actuation mist Discontinued INHALATION July 18, 2025 12:00am July 27, 2025 1:07pm Start: 03-27-2025 End: 24-59-6024jmkh 2 puff(s) by inhalation once dailytiotropium (Spiriva Respimat) 2.5 MCG/ACT inhaler Indications: Pulmonary emphysema, unspecified emph ysema type (HCC) Inhale 2 puffs Daily 1 each 2 03/27/2025 Active Problems Active Problems Problem ClassificationProblemDateDocumented DateEpisodic/ChronicAcute myocardial infarction (5 sources)Acute myocardial infarction of anterior wall; Translations: [ST elevation (STEMI) myocardial infarction involving other coronary artery of anterior wall]Onset: 500747-57-0231JatjnjpQclpzmi arrest and ventricular fibrillation (5 sources)Cardiac arrest; Translations: [Cardiac arrest, cause unspecified] Onset: 872457-98-8118CuaejbdNxscbhr obstructive pulmonary disease and bronchiectasis (20 sources)Chronic obstructive pulmonary disease, unspecified; Translations: [Pulmonary emphysema]Onset: 462646-37-6535SzkjnzxQyecuqxovdxoj of surgical procedures or medical care (2 sources)Subcutaneous emphysema resulting from a procedure; Translations: [Emphysema (subcutaneous) resulting from a procedure, initial encounter] 71-49-2894QcbxfpyxXfdxhgonnw heart failure; nonhypertensive (2 sources)Heart failure with reduced ejection fraction; Translations: [Unspecified systolic (congestive) heart failure]98-95-2687JxhhuaaGzgsxjuh atherosclerosis and other heart disease (4 sources)History of acute ST segment elevation myocardial infarction; Translations: [Old myocardial infarction]24-86-3069BmgjyoeLaiyonbn atherosclerosis and other heart disease (1 source)Coronary angioplasty status; Translations: [Coronary angioplasty status]Onset: 73-76-4828HfyaltvsXjradsybmb disorders (18 sources)Gastro-esophageal reflux disease without esophagitis; Translations: [Gastroesophageal reflux disease without esophagitis]Onset: ChronicOther circulatory disease (2 sources)H/O: cardiovascular disease; Translations: [Personal history of sudden cardiac arrest]35-90-5950BmflqambGwwycuepk by other medications and drugs (1 source)Poisoning by unspecified narcotics, accidental (unintentional), initial encounter; Translations: [POISON UNS NARCOTIC ACC INITIAL ENC]Onset: 49-04-6729Eyvioghd codes; unclassified (3 sources)Transient alteration of awareness; Translations: [TRANSIENT ALTERATION OF AWARENESS]Onset: 25-39-0744IakvvlilTrnxyzkrueg failure; insufficiency; arrest (adult) (5 sources)Respiratory failure; Translations: [Respiratory failure, unspecified, unspecified whether with hypoxia or hypercapnia]Onset: EpisodicRespiratory failure; insufficiency; arrest (adult) (1 source)Respiratory failure; insufficiency; arrest (adult)23-40-7365Rxhzpfbog- related disorders (20 sources)Nicotine dependence, cigarettes, uncomplicated; Translations: [Smoker]Onset: 08-20-2020 Resolved: 42-83-827060238790-81-0233Cvqobyh Past or Other Problems Problem ClassificationProblemDateDocumented DateEpisodic/ChronicAbdominal pain (12 sources)Right upper quadrant pain; Translations: [Right upper quadrant pain] Onset: 882636-43-9984QesakfyfJdqvm circulatory disease (12 sources)Elevated blood-pressure reading without diagnosis of hypertension; Translations: [Elevated blood-pressure reading, without diagnosis of hypertension]Onset: 158401-58-4659EpbslkduViqvo connective tissue disease (5 sources)Chronic pain of left upper limb; Translations: [Pain in left hand] Onset: 465906-75-7823NbnancjpEbeyl disorders of stomach and duodenum (15 sources)Disorder of function of stomach; Translations: [Disease of stomach and duodenum, unspecified]Onset: 12-29-2023 Resolved: 935386-71-0159XhxbzlqeWphtd screening for suspected conditions (not mental disorders or infectious disease) (20 sources)Patient encounter status; Translations: [Encounter for screening for lipoid disorders]Onset: 12-29-2023 Resolved: 739289-05-8736YrihcuzmEyawpjrk codes; unclassified (12 sources)Tobacco user; Translations: [Tobacco use]Onset: 02-16-2024 Resolved: 891692-25-2791Xpxbtzdj Results Test NameValueInterpretationReference RangeFacilityECG 12 lead ECGon 07-20-2025 ECG 12 lead ECGMERCY [facility] [place] [address] Electrocardiograph Report Signed Patient: Evangelina Plaza MR#: [id number] : 1965 Acct:[id number] Age/Sex: 60 / M ADM Date: 07/18/25 Loc: Room: [address] [place] [address] Type: DIS IN Attending Dr: Adonis Macdonald [...] in Lateral leads Confirmed by Jonathon Canales ([id number]) on 07/24/2025 8:43:47 AM Referred By: Electronically Signed By: Jonathon Canales Transcribed By: MUS Signed By Jonathon Canales MD 07/24/[address] [place], [place] [address]Arterial Blood Gason 07-19-2025 ABG Base Excess-2.1 mmol/LNormal-3.0-3.0Ummc Holmes CountyComment on above:Performed By: #### ABG ####Point of Care testing,ABG Frac Inspired O230 % NormalThe [facility] Physician GroupComment on above:Performed By: #### ABG ####Point of Care testing,ABG Oxygen Content9.4 mmol/LNormal6.6-9.7The [facility] Physician GroupComment on above:Performed By: #### ABG ####Point of Care testing,ABG Oxygen Tphhpyjpsc97.8 %Dehnxx67.0-100.0[facility] Physician [facility] Comment on above:Performed By: #### ABG ####Point of Care testing,ABG QTU032.5 mm[Hg]Vgoool50.0-45.0The [facility] Physician GroupComment on above:Performed By: #### ABG ####Point of Care testing,ABG ZIUI4LjwhuhUeuCritical access hospital Physician [facility] Comment on above:Performed By: #### ABG ####Point of Care testing,ABG PH7.38 Normal7.35-7.45The [facility] Physician GroupComment on above:Performed By: #### ABG ####Point of Care testing,ABG TX9147.1 mm[Hg]High80.0-100.0The [facility] Physician GroupComment on above:Performed By: #### ABG ####Point of Care testing,ABG TV400 mLNormalThe [facility] Physician GroupComment on above: Performed By: #### ABG ####Point of Care testing,CO2 [Moles/Vol]24.0 mmol/L Vxpntz29.0-27.0The [facility] Physician GroupComment on above:Performed By: #### ABG ####Point of Care testing,HCO3 (Bld) [Moles/Vol]22.8 mmol/LLow23.0-29.0The [facility] Physician GroupComment on above:Performed By: #### ABG ####Point of Care testing,Respiratory CriticalHCA Florida West Hospital Physician GroupComment on above:Result Comment: Critical Value called on: 07/19/2025 at 03:49 PERFORMED BY: [place] [address] PATHOLOGIST CERTIFIED MEDICAL ASST VASHTI ACOSTA M.D.Performed By: #### ABG ####Point of Care testing,Set Respiratory Ugga37OwbmliWtpHCA Florida [facility] Hospital Physician GroupComment on above:Performed By: #### ABG ####Point of Care testing,VBG Draw SiteLeft RadialHCA Florida West Hospital Physician GroupComment on above:Performed By: #### ABG ####Point of Care testing,Ventilator ModeACHCA Florida West Hospital Physician GroupComment on above:Performed By: #### ABG ####Point of Care testing,Complete Blood Count Auto Diffon 34-29-6720Prsbnkowg (Bld) [#/Vol]0.0 10*3/uLNormal0.0-0.2The [facility] Physician GroupComment on above:Result Comment: PERFORMED BY: [place] [address] PATHOLOGIST CERTIFIED MEDICAL ASST VASHTI ACOSTA M.D.Performed By: #### CBC, CMP, TRIG, HS TROP #### [place] [address] USABasophils/100 WBC (Bld)0.5 %Normal.The [facility] Physician GroupComment on above:Performed By: #### CBC, CMP, TRIG, HS TROP #### [place] [address] USAEosinophils (Bld) [#/Vol]0.0 10*3/uLNormal0.0-0.45The [facility] Physician GroupComment on above:Performed By: #### CBC, CMP, TRIG, HS TROP #### [place] [address] USAEosinophils/100 WBC (Bld)0.4 %Normal.The [facility] Physician GroupComment on above:Performed By: #### CBC, CMP, TRIG, HS TROP #### [place] [address] USAErythrocyte distribution width (RBC) [Ratio]14.5 %Normal 12.0-14.8The [facility] Physician GroupComment on above:Performed By: #### CBC, CMP, TRIG, HS TROP #### [place] [address] USAHematocrit (Bld) [Volume fraction]43.9 %Iuivfd62.8-50.0The [facility] Physician GroupComment on above:Performed By: #### CBC, CMP, TRIG, HS TROP #### [place] [address] USAHemoglobin (Bld) [Mass/Vol]15.0 g/eADlylwp59.0-17.0The [facility] Physician GroupComment on above:Performed By: #### CBC, CMP, TRIG, HS TROP #### [place] [address] USALymphocytes (Bld) [#/Vol]0.7 10*3/uLLow1.00-4.8The [facility] Physician GroupComment on above:Performed By: #### CBC, CMP, TRIG, HS TROP #### [place] [address] USALymphocytes/100 WBC (Bld)7.4 %Normal.The [facility] Physician GroupComment on above:Performed By: #### CBC, CMP, TRIG, HS TROP #### [address] (RBC) [Entitic mass]31.7 wuYisgql70.5-35.2The [facility] Physician GroupComment on above:Performed By: #### CBC, CMP, TRIG, HS TROP #### [address] (RBC) [Entitic vol]93.1 gZIxgrmt88.5-101The [facility] Physician GroupComment on above:Performed By: #### CBC, CMP, TRIG, HS TROP #### [place] [address] USAMean Corpuscular HGB Conc34.1 g/vYWgablx49.5-35.6The [facility] Physician GroupComment on above:Performed By: #### CBC, CMP, TRIG, HS TROP #### [place] [address] USAMonocytes (Bld) [#/Vol]0.4 10*3/uLNormal0.0-0.8The [facility] Physician GroupComment on above:Performed By: #### CBC, CMP, TRIG, HS TROP #### [place] [address] USAMonocytes/100 WBC (Bld)4.4 %Normal.The [facility] Physician GroupComment on above:Performed By: #### CBC, CMP, TRIG, HS TROP #### [place] [address] USANeutrophils (Bld) [#/Vol]8.6 10*3/uLHigh1.8-7.7The [facility] Physician GroupComment on above:Performed By: #### CBC, CMP, TRIG, HS TROP #### [place] [address] USANeutrophils/100 WBC (Bld)87.3 %Normal.The [facility] Physician GroupComment on above:Performed By: #### CBC, CMP, TRIG, HS TROP #### [place] [address] USANRBC%0.0 /100{WBC}Normal0-0.5The [facility] Physician Group Comment on above:Performed By: #### CBC, CMP, TRIG, HS TROP #### [place] [address] USAPlatelet mean volume (Bld) [Entitic vol]9.1 fLNormal 6.6-10.1The [facility] Physician GroupComment on above:Performed By: #### CBC, CMP, TRIG, HS TROP #### [place] [address] USAPlatelets (Bld) [#/Vol]165 10*3/wCXljehg419-812Uwn [facility] Physician GroupComment on above:Performed By: #### CBC, CMP, TRIG, HS TROP #### [place] [address] USARBC (Bld) [#/Vol]4.72 10*6/uLNormal3.90-5.60The [facility] Physician GroupComment on above:Performed By: #### CBC, CMP, TRIG, HS TROP #### [place] [address] USAWBC (Bld) [#/Vol]9.9 10*3/uLNormal4.1-10.5The [facility] Physician GroupComment on above:Performed By: #### CBC, CMP, TRIG, HS TROP #### [place] [address] USAWhite Blood Count9.9 [CFU]/mLNormal4.1-10.5The [facility] Physician GroupComment on above:Performed By: #### CBC, CMP, TRIG, HS TROP #### [place] [address] USAComprehensive Metabolic Panelon 73-45-9398Kjdafue [Mass/Vol]3.5 g/dLNormal3.5-5.7The [facility] Physician GroupComment on above: Performed By: #### CBC, CMP, TRIG, HS TROP #### [address] [place] [address] USAAlbumin/Globulin [Mass ratio]1.6 {ratio}NormalThe [facility] Physician GroupComment on above:Performed By: #### CBC, CMP, TRIG, HS TROP #### [facility] [address] [place] [address] USAALP [Catalytic activity/Vol]76 U/TRazviz01-904Tgc [facility] Physician GroupComment on above:Performed By: #### CBC, CMP, TRIG, HS TROP #### [facility] [address] [place] [address] USAALT [Catalytic activity/Vol]42 U/LNormal7-52The [facility] Physician GroupComment on above:Performed By: #### CBC, CMP, TRIG, HS TROP #### [place] [address] USAAnion gap [Moles/Vol]9.5 mmol/LNormal6.0-15.0The [facility] Physician GroupComment on above:Performed By: #### CBC, CMP, TRIG, HS TROP #### [place] [address] USAAST [Catalytic activity/Vol]56 U/LHlbp00-29Lbq [facility] Physician GroupComment on above:Performed By: #### CBC, CMP, TRIG, HS TROP #### [place] [address] USABilirubin [Mass/Vol]0.8 mg/dLNormal0.3-1.0The [facility] Physician GroupComment on above:Performed By: #### CBC, CMP, TRIG, HS TROP #### [place] [address] USACalcium [Mass/Vol]8.3 mg/dLLow8.6-10.3The [facility] Physician GroupComment on above:Performed By: #### CBC, CMP, TRIG, HS TROP #### [facility] [address] [place] [address] USAChloride [Moles/Vol]110 mmol/HWoia21-672Ngk [facility] Physician GroupComment on above:Performed By: #### CBC, CMP, TRIG, HS TROP #### [facility] [address] [place] [address] USACO2 [Moles/Vol]24.6 mmol/ZXaisum04.0-31.0The [facility] Physician GroupComment on above:Performed By: #### CBC, CMP, TRIG, HS TROP #### [facility] [address] [place] [address] USACreatinine [Mass/Vol]1.11 mg/dLNormal0.70-1.30The [facility] Physician GroupComment on above:Performed By: #### CBC, CMP, TRIG, HS TROP #### [facility] [address] [place] [address] USACreatinine Clr Calc Bnpguhgv49.54NormPremier Healthe [facility] Physician GroupComment on above:Performed By: #### CBC, CMP, TRIG, HS TROP #### [facility] [address] [place] [address] USAGFR/1.73 sq M.predicted MDRD (S/P/Bld) [Vol rate/Area] mL/min/{1.73_m2}NormalThe [facility] Physician GroupComment on above:Performed By: #### CBC, CMP, TRIG, HS TROP #### [facility] [address] [place] [address] USAGlobulin (S) [Mass/Vol]2.2 g/dLNormPremier Healthe [facility] Physician [facility] HospitalComment on above:Performed By: #### CBC, CMP, TRIG, HS TROP #### [facility] [address] [place] [address] USAGlucose [Mass/Vol]104 mg/sEFyqw93-666Uun [facility] Physician GroupComment on above:Result Comment: Random Glucose Reference Range is dependent on time and content of last meal. Glucose of more than 200 mg/dL in a nonstressed, ambulatory subject supports the diagnosis of Diabetes Mellitus. ADA recommended reference rangePerformed By: #### CBC, CMP, TRIG, HS TROP #### [facility] [address] [place] [address] USAPotassium [Moles/Vol]4.1 mmol/LNormal3.5-5.1The [facility] Physician GroupComment on above:Performed By: #### CBC, CMP, TRIG, HS TROP #### [facility] [address] [place] [address] USAProtein [Mass/Vol]5.7 g/dLLow6.4-8.9The [facility] Physician GroupComment on above:Performed By: #### CBC, CMP, TRIG, HS TROP #### [facility] [address] [place] [address] USASodium [Moles/Vol]140 mmol/DUhaxks764-329Zrb [facility] Physician GroupComment on above:Performed By: #### CBC, CMP, TRIG, HS TROP #### [facility] [address] [place] [address] USAUrea nitrogen [Mass/Vol]19 mg/dLNormal7-25The [facility] Physician GroupComment on above:Performed By: #### CBC, CMP, TRIG, HS TROP #### [facility] [address] [place] [address] USAECG 12 lead ECGon 37-57-2355PWG 12 lead ECGMERCY [facility] Main [place] [address] [place] [address] Electrocardiograph Report Signed Patient: Evangelina Plaza MR#: [id number] : 1965 Acct:[id number] Age/Sex: 60 / M ADM Date: 07/18/25 Loc: Room: [address] [place] [address] Type: ADM IN Attending Dr: Adonis Macdonald [...] Septal infarct present Confirmed by Jonathon Canales ([id number]) on 07/19/2025 1:17:42 PM Referred By: Electronically Signed By: Jonathon Canales Transcribed By: MUS Signed By Jonathon Canales MD 07/19/[address] [place] [address] Physician GroupECH echo transthoracicon 70-01-8394VYZ echo transthoracicMERCY HEALTH [facility]INGS [facility] Main [place] [address] [place], [place] [address] Echocardiogram Signed Patient: Evangelina Plaza MR#: [id number] : 1965 Acct:[id number] Age/Sex: 60 / M ADM Date: 07/18/25 Loc: Room: [address] [place] [address] Type: ADM IN Attending Dr: Adonis Macdonald [...] 0759 Signed By: Ekaterina Hoffman MD 07/19/25 1515[facility] Glucose Poct Glucometerson 16-41-3389Imzdudm2Ptt0: Cleaned MeterNoMiami Valley Hospital GroupComment on above:Result Comment: PERFORMED BY: [facility] [place] [address] PATHOLOGIST CERTIFIED MEDICAL ASST VASHTI ACOSTA M.D.Performed By: #### GLULS ####Point of Care testing,Glucose [Mass/Vol]102 mg/dLHCA [facility] Hospital Physician [facility] HospitalComment on above:Result Comment: Random Glucose Reference Range is dependent on time and content of last meal. Glucose of more than 200 mg/dL in a nonstressed, ambulatory subject supports the diagnosis of Diabetes Mellitus.Performed By: #### GLULS ####Point of Care testing,Commemt1 Glu2: Cleaned MeterNoCritical access hospital Physician [facility] HospitalComment on above:Result Comment: PERFORMED BY: [address] [address] PATHOLOGIST CERTIFIED MEDICAL ASST VASHTI ACOSTA M.D.Performed By: #### GLULS ####Point of Care testing,Glucose [Mass/Vol]106 mg/dLHCA [facility] West Hospital Physician [facility] HospitalComment on above:Result Comment: Random Glucose Reference Range is dependent on time and content of last meal. Glucose of more than 200 mg/dL in a nonstressed, ambulatory subject supports the diagnosis of Diabetes Mellitus.Performed By: #### GLULS ####Point of Care testing,Prothrombin Time INRon 96-29-4684WWO Coag (PPP) [Relative time]1.0 {INR}NormalThe [facility] Physician GroupComment on above:Result Comment: INR Therapeutic [...] heart valves: 3 - 4.5 PERFORMED BY: [place] [address] PATHOLOGIST CERTIFIED MEDICAL ASST VASHTI ACOSTA M.D.Performed By: #### PT #### [address] [address] USAPT Coag (PPP) [Time]11.3 sNormal9.0-12.9The [facility] Physician GroupComment on above:Result Comment: A hematocrit value greater than 55% may lead to inaccurate results in coagulation testing. Patients having hematocrit values >55% require a special collection tube for coagulation studies. Please contact the laboratory at [phone] for redraw instructions.Performed By: #### PT #### [address] [address] USATriglycerideson 34-64-8499Tsoweqakfctr [Mass/Vol]109 mg/dL Ynunpn02-673Wbs [facility] Physician GroupComment on above:Result Comment: TRIG ATP III CLASSIFICATION TRIG less than 150 mg/dL Normal TRIG 150-199 mg/dL Borderline high TRIG 200-500 mg/dL High TRIG greater than 500 mg/dL Very high Standard traceable to the Center for Disease Conrtrol and Prevention (CDC) test method. PERFORMED BY: [place] [address] PATHOLOGIST CERTIFIED MEDICAL ASST VASHTI ACOSTA M.D.Performed By: #### CBC, CMP, TRIG, HS TROP #### [place] [address] USATroponin I High Sensitivityon 02-19-5179Jbknyeti I High Rwgqqhsrirm3614Iai scale high0-20The [facility] Physician GroupComment on above: Result Comment: Critical Result : Called to and read back by: ALKA QUINTANA at: 07/19/2025 05:22:08 by:[id number] The Troponin units of report have been changed to meet the Chest Pain Accreditation requirement, element EC5.M1l2. Troponin units are changed from pg/ml to ng/L. Also, the decimal is removed and results are in whole numbers. PERFORMED BY: [place] [id number] PATHOLOGIST CERTIFIED MEDICAL ASST VASHTI ACOSTA M.D.Performed By: #### CBC, CMP, TRIG, HS TROP #### [address] [address] USAXR chest 1V portableon 25-85-7596ZX chest 1V portable [facility] Main [place] [address] [place], [place] [address] XRay Report Signed Patient: Evangelina Plaza MR#: [id number] : 1965 Acct:[id number] Age/Sex: 60 / M ADM Date: 07/18/25 Loc: Room: [address] [place] [address] Type: ADM IN Attending Dr: Adonis Macdonald MD Copies to: Francycharity Rivera APRN [facility] Adonis Macdonald MD Ordering Provider: Francy Rivera APRN [facility] Date of Service: 07/19/25 XR/XR chest [...] Wolf M.D. 07/19/2025 6:14 AM Dictation Location: [facility]--17 Transcribed By: [facility] 07/19/25 0614 Dictated By: Yoli Wolf II, MD 07/19/25 0613 Signed By: 07/19/25 0614[facility] and HomeArterial Blood Gason 07-18-2025 ABG Base Excess-4.8 mmol/LLow-3.0-3.0The [facility] Physician GroupComment on above:Performed By: #### ABG ####Point of Care testing,ABG Frac Inspired O250 % NormalThe [facility] Physician GroupComment on above:Performed By: #### ABG ####Point of Care testing,ABG Oxygen Content9.9 mmol/LHigh6.6-9.7The [facility] Physician GroupComment on above:Performed By: #### ABG ####Point of Care testing,ABG Oxygen Jujnnjmwvn34.2 %Yznysw30.0-100.0The [facility] Physician [facility] Comment on above:Performed By: #### ABG ####Point of Care testing,ABG GGZ819.4 mm[Hg]Xlcusg12.0-45.0The [facility] Physician GroupComment on above:Performed By: #### ABG ####Point of Care testing,ABG IDPP3LnmrhkPfcCritical access hospital Physician Group Comment on above:Performed By: #### ABG ####Point of Care testing,ABG PH7.33Low 7.35-7.45The [facility] Physician GroupComment on above:Performed By: #### ABG ####Point of Care testing,ABG ML8124.8 mm[Hg]Off scale high80.0-100.0The [facility] Physician GroupComment on above:Performed By: #### ABG ####Point of Care testing,ABG TV400 mLNormalThe [facility] Physician GroupComment on above: Performed By: #### ABG ####Point of Care testing,CO2 [Moles/Vol]22.0 mmol/LLow 23.0-27.0The [facility] Physician GroupComment on above:Performed By: #### ABG ####Point of Care testing,HCO3 (Bld) [Moles/Vol]20.8 mmol/LLow23.0-29.0The [facility] Physician GroupComment on above:Performed By: #### ABG ####Point of Care testing,Respiratory CriticalNoCritical access hospital Physician GroupComment on above:Result Comment: Critical Value called on: 07/18/2025 at 12:48 PERFORMED BY: [address] [place] [id number] PATHOLOGIST CERTIFIED MEDICAL ASST VASHTI ACOSTA M.D.Performed By: #### ABG ####Point of Care testing,Set Respiratory Cixi03UxmketMgtHCA [facility] Physician GroupComment on above:Performed By: #### ABG ####Point of Care testing,VBG Draw SiteLeft BrachialHCA Florida West Hospital Physician GroupComment on above:Performed By: #### ABG ####Point of Care testing,Complete Blood Count Auto Diffon 75-37-2470Iasfrjokc (Bld) [#/Vol] 0.0 10*3/uLNormal0.0-0.2The [facility] Physician GroupComment on above:Result Comment: PERFORMED BY: [address] [place] [address] PATHOLOGIST CERTIFIED MEDICAL ASST VASHTI ACOSTA M.D.Performed By: #### CBC, CMP, PHOS, MG ####[place] [address] USABasophils/100 WBC (Bld)0.2 %Normal.The [facility] Physician GroupComment on above:Performed By: #### CBC, CMP, PHOS, MG ####[place] [address] USAEosinophils (Bld) [#/Vol]0.0 10*3/uLNormal0.0-0.45 The [facility] Physician GroupComment on above:Performed By: #### CBC, CMP, PHOS, MG ####[place] [address] [place] Eosinophils/100 WBC (Bld)0.3 %Normal.The [facility] Physician GroupComment on above:Performed By: #### CBC, CMP, PHOS, MG ####[place] [address] USAErythrocyte distribution width (RBC) [Ratio]14.2 %Luamuh23.0-14.8The [facility] Physician GroupComment on above: Performed By: #### CBC, CMP, PHOS, MG ####[place] [address] USAHematocrit (Bld) [Volume fraction]45.3 %Normal 38.8-50.0The [facility] Physician GroupComment on above:Performed By: #### CBC, CMP, PHOS, MG ####[place] [address] USAHemoglobin (Bld) [Mass/Vol]15.4 g/vSWscddb25.0-17.0The [facility] Physician GroupComment on above:Performed By: #### CBC, CMP, PHOS, MG ####[place] [address] [place] Lymphocytes (Bld) [#/Vol]0.6 10*3/uLLow1.00-4.8The [facility] Physician Group Comment on above:Performed By: #### CBC, CMP, PHOS, MG ####[place] [address] USALymphocytes/100 WBC (Bld)5.5 % Normal.The [facility] Physician GroupComment on above:Performed By: #### CBC, CMP, PHOS, MG ####[address] (RBC) [Entitic mass]31.5 wmCxduru41.5-35.2The [facility] Physician GroupComment on above:Performed By: #### CBC, CMP, PHOS, MG ####[address] (RBC) [Entitic vol]92.9 jYPqiljm66.5-101The [facility] Physician GroupComment on above:Performed By: #### CBC, CMP, PHOS, MG ####[place] [address] USAMean Corpuscular HGB Conc33.9 g/eQKnvkiq71.5-35.6The [facility] Physician GroupComment on above:Performed By: #### CBC, CMP, PHOS, MG ####[place] [address] [place] Monocytes (Bld) [#/Vol]0.5 10*3/uLNormal0.0-0.8The [facility] Physician Group Comment on above:Performed By: #### CBC, CMP, PHOS, MG ####[place] [address] USAMonocytes/100 WBC (Bld)4.8 % Normal.The [facility] Physician GroupComment on above:Performed By: #### CBC, CMP, PHOS, MG ####[place] [address] USANeutrophils (Bld) [#/Vol]9.6 10*3/uLHigh1.8-7.7The [facility] Physician GroupComment on above:Performed By: #### CBC, CMP, PHOS, MG ####[place] [address] USANeutrophils/100 WBC (Bld)89.2 %Normal.The [facility] Physician GroupComment on above:Performed By: #### CBC, CMP, PHOS, MG ####[place] [address] USANRBC%0.1 /100{WBC}Normal0-0.5The [facility] Physician GroupComment on above:Performed By: #### CBC, CMP, PHOS, MG ####[place] [address] USAPlatelet mean volume (Bld) [Entitic vol]8.6 fLNormal6.6-10.1The [facility] Physician GroupComment on above:Performed By: #### CBC, CMP, PHOS, MG ####[place] [address] USAPlatelets (Bld) [#/Vol]173 10*3/uL Ydfxhn454-322Dec [facility] Physician GroupComment on above:Performed By: #### CBC, CMP, PHOS, MG ####[place] [address] USARBC (Bld) [#/Vol]4.87 10*6/uLNormal3.90-5.60The [facility] Physician GroupComment on above:Performed By: #### CBC, CMP, PHOS, MG ####[place] [address] USAWBC (Bld) [#/Vol]10.8 10*3/uLHigh4.1-10.5The [facility] Physician GroupComment on above:Performed By: #### CBC, CMP, PHOS, MG ####[place] [address] USAWhite Blood Count10.8 [CFU]/mLHigh4.1-10.5The [facility] Physician GroupComment on above:Performed By: #### CBC, CMP, PHOS, MG ####[address] [place] [address] [facility] Comprehensive Metabolic Panelon 43-72-8482Aaofpwr [Mass/Vol]3.6 g/dLNormal 3.5-5.7The [facility] Physician GroupComment on above:Performed By: #### CBC, CMP, PHOS, MG ####[place] [address] [place] [address] USAAlbumin/Globulin [Mass ratio]1.7 {ratio}NormalThe [facility] Physician GroupComment on above:Performed By: #### CBC, CMP, PHOS, MG ####[address] [address] USAALP [Catalytic activity/Vol]80 U/ACblepl94-333Pcm [facility] Physician GroupComment on above: Performed By: #### CBC, CMP, PHOS, MG ####[place] [address] USAALT [Catalytic activity/Vol]49 U/LNormal7-52 The [facility] Physician GroupComment on above:Performed By: #### CBC, CMP, PHOS, MG ####[address] [address] USA Anion gap [Moles/Vol]8.7 mmol/LNormal6.0-15.0The [facility] Physician Group Comment on above:Performed By: #### CBC, CMP, PHOS, MG ####[place] [address] USAAST [Catalytic activity/Vol]68 U/ATvlk95-24Jha [facility] Physician GroupComment on above:Performed By: #### CBC, CMP, PHOS, MG ####[address] [address] USABilirubin [Mass/Vol]0.7 mg/dLNormal0.3-1.0The [facility] Physician GroupComment on above:Performed By: #### CBC, CMP, PHOS, MG ####[place] [address] USACalcium [Mass/Vol]8.1 mg/dLLow8.6-10.3The [facility] Physician [facility] HospitalComment on above:Performed By: #### CBC, CMP, PHOS, MG ####[place] [address] USAChloride [Moles/Vol]111 mmol/HLbwf33-614Thn [place] Physician [facility] HospitalComment on above:Performed By: #### CBC, CMP, PHOS, MG ####[place] [address] USACO2 [Moles/Vol]24.5 mmol/EXjchzl75.0-31.0The [facility] Physician GroupComment on above:Performed By: #### CBC, CMP, PHOS, MG ####[place] [address] USACreatinine [Mass/Vol]1.03 mg/dLNormal 0.70-1.30The [facility] Physician [facility] HospitalComment on above:Performed By: #### CBC, CMP, PHOS, MG ####[place] [address] USACreatinine Clr Calc Ybeyfjiz61.17NormSebastian [facility] Physician [facility] Comment on above:Performed By: #### CBC, CMP, PHOS, MG ####[place] [address] USAGFR/1.73 sq M.predicted MDRD (S/P/Bld) [Vol rate/Area]mL/min/{1.73_m2}NormalAdventhealth Waterford Lakes Er Physician [facility] Comment on above:Performed By: #### CBC, CMP, PHOS, MG ####[place] [address] USAGlobulin (S) [Mass/Vol]2.1 g/dLNoCritical access hospital Physician [facility] HospitalComment on above:Performed By: #### CBC, CMP, PHOS, MG ####[place] [address] USAGlucose [Mass/Vol]85 mg/eAFlksqf09-821Kxz [place] Physician [facility] Comment on above:Result Comment: Random Glucose Reference Range is dependent on time and content of last meal. Glucose of more than 200 mg/dL in a nonstressed, ambulatory subject supports the diagnosis of Diabetes Mellitus. ADA recommended reference rangePerformed By: #### CBC, CMP, PHOS, MG ####[place] [address] [address] Potassium [Moles/Vol]4.2 mmol/LNormal3.5-5.1The [facility] Physician GroupComment on above:Performed By: #### CBC, CMP, PHOS, MG ####[place] [address] USAProtein [Mass/Vol]5.7 g/dLLow6.4-8.9 The [facility] Physician GroupComment on above:Performed By: #### CBC, CMP, PHOS, MG ####[address] Sodium [Moles/Vol]140 mmol/ZOgzryj007-776Ubc [facility] Physician GroupComment on above:Performed By: #### CBC, CMP, PHOS, MG ####[address] StreetUrea nitrogen [Mass/Vol]22 mg/dLNormal - [facility] Physician GroupComment on above:Performed By: #### CBC, CMP, PHOS, MG ####[place] [address] USAECG 12 lead ECGon 51-98-5250BEA 12 lead ECGMERCY [facility] Main [place] [address] [place] [address] Electrocardiograph Report Signed Patient: Evangelina Plaza MR#: [id number] : 1965 Acct:[id number] Age/Sex: 60 / M ADM Date: 07/18/25 Loc: Room: [address] [place] [address] Type: REG SDC Attending Dr: Adonis Macdonald [...] undetermined Abnormal ECG Confirmed by Ekaterina Hoffman ([id number]) on 07/18/2025 2:17:05 PM Referred By: Electronically Signed By: Ekaterina Hoffman Transcribed By: MUS Signed By Ekaterina Hoffman MD 5 1417NormSebastian River [facility] Physician [facility] HospitalGlucose Poct Glucometerson 07-18-2025 Glucose [Mass/Vol]83 mg/dLNoCritical access hospital Physician [facility] HospitalComment on above: Result Comment: Random Glucose Reference Range is dependent on time and content of last meal. Glucose of more than 200 mg/dL in a nonstressed, ambulatory subject supports the diagnosis of Diabetes Mellitus. PERFORMED BY: [place] [address] PATHOLOGIST CERTIFIED MEDICAL ASST VASHTI ACOSTA M.D.Performed By: #### GLULS ####Point of Care testing, Magnesiumon 38-24-6152Fnvqcfujq [Mass/Vol]2.1 mg/dLNormal1.9-2.7The [facility] Physician GroupComment on above:Result Comment: PERFORMED BY: [place] [address] PATHOLOGIST CERTIFIED MEDICAL ASST VASHTI ACOSTA M.D.Performed By: #### CBC, CMP, PHOS, MG ####[facility] [address] [place] [address] USAPhosphoruson 09-16-4140Rsieowfme [Mass/Vol]2.5 mg/dLNormal2.5-4.5The [facility] Physician [facility] HospitalComment on above:Performed By: #### CBC, CMP, PHOS, MG ####[facility] [address] [place] [address] USAXR abdomen 1Von 31-29-1880NA abdomen 1VMERCY HEALTH [place] [place] [address] XRay Report Signed Patient: Evangelina Plaza MR#: [id number] : 1965 Acct:[id number] Age/Sex: 60 / M ADM Date: 07/18/25 Loc: Room: [address] [place] [address] Type: [facility] Attending Dr: Adonis Macdonald MD Copies to: MD Adonis Black MD Ordering Provider: Ajit Hirsch MD Date of Service: 07/18/25 XR/XR chest 1V portable: ETT placement ([id number]) XR/XR abdomen 1V: NG tube placement XR [...] Wolf M.D. 07/18/2025 1:11 PM Dictation Location: [place] [address] Transcribed By: [facility] 07/18/25 1311 Dictated By: Yoli Wolf II, MD 07/18/25 1309 Signed By: 07/18/25 1311[facility] Physician GroupCT LUNG SCREENING LOW DOSEon 00-72-7896[place]px[place]est[place] [address] [place] Scan Report Signed Patient: EVANGELINA PLAZA MR#: [id number] : 1965 Acct:[id number] Age/Sex: 60 / M ADM Date: 03/30/25 Loc: CT Attending Dr: Dior Khan NP Ordering Physician: Dior Khan NP Date of Service: 03/30/25 Procedure(s): CT lung screening low-dose Accession Number(s): [id number] cc: Shaikh Claus Cain [place] [id number] Patient Name: EVANGELINA PLAZA MRN: [facility]:[id number] date: 1965 Sex: M Assigned Patient Location: CT Current Patient Location: CT Accession/Order Number: [id number] Exam Date: 03/30/2025 15:15 Report Date: 03/30/2025 [...] Miguel M.D. 03/30/2025 3:19 PM Dictation Location: [place] [address] Electronically authenticated by: [id number] Y Date: 03/30/2025 15:19 Dictated By: Flakito Miguel D.O. Signed By: 03/30/25 1522 DD/ 1519 TD/TT: Market Editor:KYMHRadiology, Radiologist, - 03/30/[address] [address] [address] Scan Report Signed Patient: EVANGELINA PLAZA MR#: [id number] : 1965 Acct:[id number] Age/Sex: 60 / M ADM Date: 03/30/25 Loc: CT Attending Dr: Dior Khan NP Ordering Physician: Dior Khan NP Date of Service: 03/30/25 Procedure(s): CT lung screening low-dose Accession Number(s): [id number] cc: Shaikh Claus Cain The [place] [address] Patient Name: EVANGELINA PLAZA MRN: [id number] date: 1965 Sex: M Assigned Patient Location: CT Current Patient Location: CT Accession/Order Number: [id number] Exam Date: 03/30/2025 15:15 Report Date: 03/30/2025 [...] Miguel M.D. 03/30/2025 3:19 PM Dictation Location: [place] [address] Electronically authenticated by: [id number] Y Date: 03/30/2025 15:19 Dictated By: Flakito Miguel D.O. Signed By: 03/30/25 1522 DD/ 1519 TD/TT: Market Editor: [facility] HOSPITALTori HealthcareRadiology Study observation (narrative)[facility] HealthcareCT LUNG SCREENING LOW DOSEOrdered By: Radiologist Radiology on 12-79-7354VWAT [employer] Work Phone: ct LUNG SCREENING LOW DOSEon 06-25-9216ZzoP[place], [place] [address] CT Scan Report Signed Patient: EVANGELINA PLAZA MR#: [id number] : 1965 Acct:[id number] Age/Sex: 59 / M ADM Date: 02/23/24 Loc: CT Attending Dr: Shaikh Payton Devlin Ordering Physician: Shaikh Claus Cain Date of Service: 02/23/24 Procedure(s): CT lung screening low-dose Accession Number(s): [id number] cc: Shaikh Claus Cain [place] [address] Patient Name: EVANGELINA PLAZA MRN: [id number] date: 1965 Sex: M Assigned Patient Location: CT Current Patient Location: CT Accession/Order Number: [id number] Exam Date: 02/23/2024 14:00 Report Date: 02/23/2024 [...] Signed By: 02/23/24 1452 DD/ 1449 TD/TT: Market Editor:TBHRadiology, Radiologist, - 02/23/2024 [place] [address] CT Scan Report Signed Patient: EVANGELINA PLAZA MR#: [id number] : 1965 Acct:[id number] Age/Sex: 59 / M ADM Date: 02/23/24 Loc: CT Attending Dr: Shaikh Payton Devlin Ordering Physician: Shaikh Claus Cain Date of Service: 02/23/24 Procedure(s): CT lung screening low-dose Accession Number(s): [id number] cc: Shaikh Claus Cain [address] [address] Patient Name: EVANGELINA PLAZA MRN: [facility]:[id number] date: 1965 Sex: M Assigned Patient Location: CT Current Patient Location: CT Accession/Order Number: [id number] Exam Date: 02/23/2024 14:00 Report Date: 02/23/2024 [...] Signed By: 02/23/24 1452 DD/ 1449 TD/TT: Market Editor: KB HealthcareRadiology Study observation (narrative)KB HealthcareCT LUNG SCREENING LOW DOSEOrdered By: Radiologist Radiology on 73-50-4807YUDD [employer] Work Phone: Vital Signs Date TimeVital SignValuePerforming HxviunsvpOrdsltcn38-04-5910 13:13-0400Body .07 cmErie [facility] Work Phone: [phone] [place], [place] [address]4310-02-2025 13:13-0400 Body mass index (BMI) [Ratio]25.7 kg/m2[place] [facility] Work Phone: [phone] [place], [place] 3154310-02-2025 13:13-0400 Body ryvfie54.55 kgErie [facility] Work Phone: [phone] [place], [place] [address]10-02-2025 13:13-0400 Diastolic blood tsztndym31 mm[Hg][facility] [facility] Work Phone: [phone] [place], [place] [address]10-02-2025 13:13-0400 Heart rate59 /minErie Co Health Dept Work Phone: [phone] [place], [place] [address]10-02-2025 13:13-0400 Respiratory rate20 /minErie [facility] Health Dept Work Phone: [phone] [place], [place] 3154310-02-2025 13:13-0400 SaO2% (BldA) [Mass fraction]98 %[facility] Work Phone: [phone] [place], [place] 3154310-02-2025 13:13-0400 Systolic blood wzzyzppg155 mm[Hg][facility] [facility] Work Phone: [phone] [place], [place] 3154309-25-2025 13:41-0400 Heart rate67 /minE[facility] Work Phone: [phone] [place], [place] 3[address]309-25-2025 13:41-0400 Respiratory rate18 /minE[facility] Work Phone: [phone]09-25-2025 12:00-0400 Body dtuesgrvikx82.3 [degF][facility] Work Phone: [phone] [place], [place] 3154309-25-2025 12:00-0400 Diastolic blood igqszlnt05 mm[Hg][facility] Work Phone: [phone] [place], [place] 3154309-25-2025 12:00-0400 SaO2% (BldA) [Mass fraction]98 %[facility] Work Phone: [phone])[address] [place], [place] 3154309-25-2025 12:00-0400 Systolic blood mqwccwud625 mm[Hg][facility] Work Phone: [phone] [place], [place] 3154309-25-2025 06:00-0400 Body gmnqat32.6 [facility] Work Phone: [phone] [place], [place] 3154309-24-2025 17:00-0400 Inhaled oxygen flow rate1 L/[facility] Work Phone: [phone] [place], [place] 3154309-24-2025 12:00-0400 Inhaled oxygen oefihmjavgfab72 %[facility] Work Phone: [phone] [place], [place] 3154309-23-2025 13:12-0400 Body .26 [facility] Work Phone: [phone] [place], [place] 3154307-22-2025 14:11-0400 Body mass index (BMI) [Ratio]25.43 kg/m2Dior Khan BAKER Work Phone: [facility]villeLzxekmoahm59-46-2341 14:11-0400Body temperature 98.49 [degF]Dior Khan BAKER Work Phone: [facility]villeIypynxnwga75-05-8930 14:11-0400Body .38 kgDior Khan BAKER Work Phone: [facility]villeMhodsqjabp95-30-4841 14:11-0400Diastolic blood xbbukzjq71 mm[Hg]Dior Khan BAKER Work Phone: [facility]villeTgbecwqfuy93-00-7482 14:11-0400Heart rate80 /min Dior Khan BAKER Work Phone: [facility]villeJgwnqnxwcp76-82-4596 14:11-0400Respiratory rate22 /minDior Khan BAKER Work Phone: [facility]villeKptzhyfhad85-09-7767 14:11-6441QpV7% (BldA) [Mass fraction]95 %Dior Khan BAKER Work Phone: [facility]villeYvsowizcvk21-58-1929 14:11-0400Systolic blood vytomiks656 mm[Hg]Dior Khan BAKER Work Phone: [place] [address]Ktppcpjfmy64-86-2155 11:06-0500Body .8 cmBrinesnabila Waldrop BAKER Work Phone: [place] [address]Oefmjjrcuo10-43-8786 11:06-0500Body mass index (BMI) [Ratio]26.69 kg/e6Ajewmwtd Waldrop BAKER Work Phone: [facility]villeKrocvwlbzn82-66-9344 11:06-0500Body temperature 97.11 [degF]Digna Waldrop BAKER Work Phone: [place] [address]Cdtbiqnbpe71-06-3504 11:06-0500Body ofcsyi80.37 kgBrinesnabila Waldrop BAKER Work Phone: [place] [address]Jshnczkxlj79-43-8298 11:06-0500Diastolic blood otrcaxrs34 mm[Hg]Digna Waldrop BAKER Work Phone: [place] [address]Tmyzrbijuf74-87-7972 11:06-0500Heart rate70 /min Digna Waldrop BAKER Work Phone: [place] [address]Prkdbyipkm15-84-3204 11:06-0500Respiratory rate18 /minBrmarino Waldrop BAKER Work Phone: noSt. [facility] CenterUrojtltrvv74-15-1125 11:06-1684LwC2% (BldA) [Mass fraction]97 %Digna Waldrop BAKER Work Phone: [facility] Xgwhbjwfyt31-62-1543 11:06-0500Systolic blood mm[Hg]Digna Shahtrick BAKER Work Phone: [facility] Encounters Encounter DateEncounter TypeCare ProviderFacilityStart: 07-27-2025 End: 84-01-5615yukteajsuuSptr Fl [facility] Dept Work Phone: [facility] Work Phone: Start: 07-27-2025 End: 36-70-2438Tnpuqgm encounter procedureSregine Vergara MD-[facility] Work Phone: Start: 07-18-2025 End: 76-83-2101ebbzgyjuzoEYBHVPM PROVIDERFacility:METROHealthStart: 07-18-2025 End: 35-72-2764Jvpwvclvby and management of inpatientSregine Macdonald Facility:[facility]tart: 27-05-8689Fvp-patient / Non-visitChristopher Paris Hirsch MD[facility] Work Phone: Start: 33-38-6579Cam-patient / Non-visitSregine Vergara MD-[facility] Work Phone: Start: 05-16-2025 End: 28-61-3031mdmqqdcjcjMJFA AICHHOLZNot AvailableStart: 05-16-2025 End: 38-76-6496Fbbxlf flowsheetLisa Bill BAKER Work Phone: [facility] C[facility] FMStart: 05-16-2025 End: 98-49-7473Snlyrk flowsheetLisa Aichmarlonz BAKER Work Phone: [facility] FMStart: 05-16-2025 End: 57-58-1090Iietqh outpatient visit 25 minutesLisa Desouzaholz BAKER Work Phone: [facility] CWM FMComment on above:Chronic hand pain, left (Primary Dx); Cigarette nicotine dependence without complication; Gastroesophageal reflux disease without esophagitis; Pulmonary emphysema, unspecified emphysema type (HCC)Start: 04-24-2025 End: 47-80-6113SlumnnHmgv Aichholz BAKER Work Phone: [facility] CWM FMComment on above:Dyspepsia and disorder of function of stomachMed RefillStart: 04-05-2025 End: 44-15-7886MoxdjePwlk Radhahholz BAKER Work Phone: [facility] CWM FMComment on above:Pulmonary emphysema, unspecified emphysema type (CMS/HCC)Start: 03-30-2025 End: 87-48-8197Agjdhbcwb Result EncounterLisa Radhahholz BAKER Work Phone: [facility] External Department UnsolicitedStart: 03-30-2025 End: 17-75-7897Urbwjcwsc Result EncounterLisa Radhahholz BAKER Work Phone: [facility] External Department UnsolicitedStart: 03-27-2025 End: 33-21-0122ItzqczCoyf Radhahholz BAKER Work Phone: NOEN CWM FMComment on above:Pulmonary emphysema, unspecified emphysema type (CMS/HCC) (Primary Dx)Start: 03-16-2025 End: 23-82-0521kqrgpcebsqPIKX AICHHOLZNot AvailableStart: 09-14-2024 End: 56-77-4948Bgkhzk flowsheetBrittany Waldrop BAKER Work Phone: [facility] FMStart: 09-14-2024 End: 67-22-4206Ysweud flowsheetBrittany Waldrop BAKER Work Phone: [facility] C[facility] FMStart: 09-14-2024 End: 89-76-3217eszkubjqyhNPKLEJHV FITZPATRICKNot AvailableStart: 09-14-2024 End: 09-57-8615Fbufdj outpatient visit 15 minutesDigna Waldrop BAKER Work Phone: [facility] FMComment on above:Gastroesophageal reflux disease without esophagitis (Primary Dx); Pulmonary emphysema, unspecified emphysema type (CMS/HCC); Dyspepsia and disorder of function of stomachStart: 02-23-2024 End: 57-49-3330Tawoodyab Result EncounterSneil Cain MD Work Phone: [facility] External Department UnsolicitedStart: 02-23-2024 End: 46-36-2983Efztawrrn Result EncounterSneil Cain MD Work Phone: [facility] External Department UnsolicitedStart: 02-16-2024 End: 25-71-4326Srpxoay encounter procedureBrmarino Waldrop BAKER Work Phone: noms HealthcareStart: 12-29-2023 End: 58-60-7261Ddyxscn encounter statusBrmarino Waldrop BAKER Work Phone: noms HealthcareStart: 08-16-2020 End: 91-53-6628Lqplkcu encounter procedureLISA AICHHOLZFacility:H1 Procedures DateProcedureProcedure DetailPerforming ClinicianStart: 52-41-4814IK LUNG SCREENING LOW DOSELisa Aichholz BAKER Work Phone: Start: 66-65-7063LM LUNG SCREENING LOW DOSESneil Cain MD Work Phone: Plan of Treatment DateCare ActivityDetailAuthorStart: 45-39-2191KohcrpsmuOhio State University [facility]ner [facility] Start: 75-87-3818BgwdbfkegMercy Health Willard Hospitaltart: 82-91-3965HkwzpznovMercy Health Willard Hospitaltart: 34-43-4404ClwzyrajgcemJhoqafguwMercy Health Willard Hospitaltart: 73-91-9265Kmbgudwn to clinical allergistMercy Health Willard Hospitaltart: 76-94-9489Vuxiluag admissionMercy Health Willard Hospitaltart: 32-08-3405Axkywlzjc vaccinationNOAK HealthcareStart: 05-16-2025 End: 11-31-5101Ltogcgvovht sedimentation rateSedimentation rate, automated Lab Routine Chronic hand pain, left Expected: 05/16/2025 (Approximate), Expires: 05/16/2026NOAK HealthcareComment on above:Expected: 05/16/2025 (Approximate), Expires: 05/16/2026Start: 05-16-2025 End: 76-22-3885Xasnczw encounter djsxtwsqa93/22/2025 2:00 PM EDT Office Visit [facility] [address] [place] [address] Dior Khan NP [address] [place] [address] [facility] FMStart: 05-16-2025 End: 65-26-8874Noxpkeowag factor [Units/volume] in Serum or PlasmaRheumatoid factor Lab Routine Chronic hand pain, left Expected: 05/16/2025 (Approximate), Expires: 05/16/2026[facility] Work Phone: Comment on above:Expected: 05/16/2025 (Approximate), Expires: 05/16/2026Start: 05-16-2025 End: 23-86-7117Esdvh [Mass/volume] in Serum or PlasmaUric acid Lab Routine Chronic hand pain, left Expected: 05/16/2025 (Approximate), Expires: 05/16/2026 NOMS HealthcareComment on above:Expected: 05/16/2025 (Approximate), Expires: 05/16/2026Start: 05-16-2025 End: 36-55-9814HV Hand - left 2 ViewsXR hand 1 or 2 views left Imaging Routine Chronic hand pain, left Expected: 05/16/2025 (Approximate), Expires: 05/16/2026 [facility] HealthcareComment on above:Expected: 05/16/2025 (Approximate), Expires: 05/16/2026Start: 03-14-2025 End: 71-54-1314Qsxokes encounter tooruoabj06/20/2025 2:00 PM EDT Office Visit [facility] [address] [place] [address] Digna Waldrop, ROCIO [address] [place] [address] [facility] FMStart: 68-57-2349Yzoidstoi vaccinationInfluenza Vaccine (#1)[facility] HealthcareStart: 48-98-2077Sphfxlovm for malignant neoplasm of colonST. MARK'S [facility] HealthcarePatient EducationHeart attack - Discharge instructions Drug Eluting Stents Angina Know your MedsTri[facility] Work Phone: Patient referralTrihealth Good Samaritan Hospital [facility] Work Phone: Referral to cardiac rehabilitation programOhio [facility] Immunizations Immunization DateImmunizationNotesCare HapvtfwkQxpuqnbj96-62-9250xtsyrswdli, tetanus toxoids and pertussis vaccineLisa Aichholz BAKER Work Phone: [facility]villeXurjlnuhoo55-81-1578cvshism toxoid, reduced diphtheria toxoid, and acellular pertussis vaccine, adsorbedLisa Aichholz BAKER Work Phone: [facility]SmithvilleVoazyucmxs79-08-1607nxweiozhu, injectable, quadrivalent, preservative freeLisa Aichholz BAKER Work Phone: [facility]SmithvilleUczbhyhbje26-84-1425jiskaymqu virus vaccine, unspecified formulationDigna Waldrop BAKER Work Phone: [facility] Payers DatePayer CategoryPayerPolicy [id number]-pay2017Medicaid (Managed Care)[employer] Member Subscriber Plan / Payer (Effective 2017-Present) Name: Evangelina Plaza Relation to Subscriber: Self Name: Evangelina Plaza Payer ID: Not on file Group ID: Not on file Type: Not on file Address: [address] [place] [id number] [id number] [id number] [id number] [id number] [id number] [id number] Social History DateTypeDetailFacilityStart: 12-29-2023 End: 54-67-6269Jterspg smoking status NHISSmokes tobacco dailyNOMS Healthcare History of tobacco useCigarette SmokerNOMS HealthcareHistory of tobacco use Passive smokerNOMS HealthcareStart: 12-29-2023 End: 56-74-1010Qlulbvw use and exposureSmokeless tobacco non-userNOMS Healthcare Start: 02-16-2024 End: 90-10-4346Knwuwveje beverage intakeLifetime non-drinker (finding)[facility] HealthcareStart: 02-16-2024 End: 43-48-0924Sxgdfwo of Social functionNOMS HealthcareStart: 02-16-2024 End: 25-16-1278W9920 Health LiteracyNOMS HealthcareStart: 91-20-2804Ngd often do you need to have someone help you when you read instructions, pamphlets, or other written material from your doctor or pharmacy [SILS]NeverNOMS HealthcareDo you belong to any clubs or organizations such as evangelical groups, unions, fraternal or athletic groups, or [...] the mortgage or rent on time?YesNOMS HealthcareStart: 89-75-1963Vgh assigned at birthNot on [facility] - valdeseNOAK HealthcareSexMale ([facility] Hospitaltart: 95-05-2331Gbl Assigned At [facility] Medical Equipment Procedure CodeEquipment CodeEquipment Original TextEquipment IdentifierDatesCL STENT AYLSON FRONTIER 3.5 X 15FDAStart: 42-26-5538OZ STENT ALYSON FRONTIER 3.5 X 15 FDAStart: 07-18-2025 Functional Status MatpCsueehtuwiJbrujiRcriyksm76-02-1902Tvhsv score [AUDIT-C]0 09/11/2024 11:36 AM EST Mychart, GenericNOMS Zpaxgnmmxi93-25-7212Bgv often do you have a drink containing alcohol?Never 09/11/2024 11:36 AM EST Mychart, Generic NeverNOMS Bxldffotmf82-39-1237Zkhqspyogf statusPatient does not drink 09/11/2024 11:36 AM EST Mychart, Generic Patient does not drinkNOMS Zgisrwqxio67-84-3094Hbv often do you have 6 or more drinks on 1 occasion?Never 09/11/2024 11:36 AM EST Re, Generic [facility] Clinical Notes 09-14-2024 to 07-18-2025 Note Date & QqshQifaAgvpigoq22-47-7360 Evaluation note* Diagnosis Onset Date Resolution Status Admit Date Cardiac arrest acuteSeptember 2024 12:15pmRespiratory failureacuteSeptember 2024 12:15pmST elevation myocardial infarction (STEMI) of anterior wall, initial episodacuteSeptember 2024 12:15pm [facility] Work Phone: 1(566) 645-124007-22-2025 History of Present illness Narrative* Dior Khan [...] of the risks of continued smoking: stroke, OR, all forms of cancer, lung disease, and [...] of the risks of continued smoking: stroke, OR, all forms of cancer, lung disease, and . Options for quitting smoking include: cold turkey, hypnosis, acupuncture, nicotine replacement meds(gum, lozenges, and patches), Buproprion, and Varenicline. At this time pt is encouraged to evaluate their goals for wanting to quit smoking, and reach out toprovider when ready to start this process documented in this [facility]07-22-2025 Instructions* Patient Instructions* Dior Khan NP - 05/16/2025 2:00 PM EDT Please get labs completed: fasting Check xray hand GI doctor , please call office in Dr Camilo Scott [phone] [place] [address] documented in this [facility]06-30-2025 Telephone encounter Note* Telephone Encounter - BALWINDER RODRIGUEZ - 04/24/2025 4:31 PM EDT Text Otr Owner Operator Yeah, this is Evangelina Plaza. I need you to call me back for a refill on my I c I can tell you what the your name is sold. You are 40 mg stemming. I need to refill on them. Can you please let me know ifI can get it? Thank you. [facility]SmithvilleMgwqfemoua49-39-6318 Miscellaneous Notes* Telephone Encounter - BALWINDER RODRIGUEZ - 04/24/2025 4:31 PM EDT Text Otr Owner Operator Yesusie, this is Evangelina Plaza. I need you to call me back for a refill on my I c I can tell you what the your name is sold. You are 40 mg stemming. I need to refill on them. Can you please let me know ifI can get it? Thank you. documented in this encounterSaint Luke's North Hospital–SmithvilleExikdjjwwz17-14-8095 History of Present illness Narrative* Digna Waldrop NP - 09/14/2024 11:22 AM ESTAssociated Problem(s): COPD (chronic obstructive pulmonary disease) with emphysema ([facility]) Currently uses Incruse daily and Albuterol [...] HFA (Ventolin HFA) 90 mcg/act inhaler Umeclidinium [place] (Incruse Ellipta) 62.5 MCG/ACT aerosol powder Gastroesophageal [...] 40 MG EC tablet documented in this encounterNOAK HealthcareEvaluation note* Diagnosis Current smoker- Primary Encounter [...] function of stomach documented in this encounter [facility] HealthcareEvaluation note* Diagnosis Current smoker- Primary [...] emphysema type (CMS/HCC) documented in this encounter [facility] HealthcareEvaluation note* Diagnosis Current smoker- Primary [...] function of stomach documented in this encounter [facility] HealthcareEvaluation note* Diagnosis Current smoker- Primary [...] emphysema type (HCC) documented in this encounter [facility] HealthcareEvaluation note* Author Adonis Macdonald [facility] CenterAuthoredOctober 2024 1:30pm1. Status post witnessed cardiac arrest [...] therapy 6. NYHA Ib 7. CCS 0. [facility] Work Phone: [facility] Discharge instructions Additional Instructions DISCHARGE INSTRUCTIONS FOR [...] doctor or pharmacist, without first calling the lab coordinator who implanted the stent. If you require [...] weight lifting, stair steppers, etc. until the lab coordinator approves these activities. Check with the lab coordinator on your first follow-up visit. CALL YOUR FLAVOR EXTRACTOR: -If bleeding should occur from the catheter insertion site- apply pressure to the site then immediately call us. -Report any fever, redness, drainage, increased swelling, or firmness at the catheter insertion site. Some bruising or slight swelling may be present at the time of discharge. -Should arm or leg become cold, numb, white, or blue, contact the lab coordinator immediately. -IF you should experience episodes of [...] Cardiopulmonary Rehabilitation program is recommended. The attending lab coordinator or a nurse clinician should provide you with specific instructions regarding activity, diet, medications, and further follow up for you. Follow the medication instructions provided on your discharge. If the dosages and instructions on this sheet differ from the dosage and instructions on the bottle, follow the instructions on the bottle. [facility] is not responsible for incorrect prescription information provided by the patient during their visit. Do not stop your medications without consulting your health care provider. Please take the list with you to your next doctor's appointment.[facility] Work Phone: Reason for referral (narrative)No reason for referral information availableTrihealth Good Samaritan Hospital Ctr Work Phone: Summary Purpose Family [...] 2025 12:00am Stemi July 18, 2025 12:15pm [facility] 07/20July 27, 2025 12 :58pm [...] and content) DATE CREATED AUTHOR 08/20/2020 [facility] DATE CREATED AUTHOR AUTHOR'S ORGANIZ ATION 05/18/2025 [facility] DATE CREATED AUTHOR AUTHOR'S ORGANIZ ATION 07/21/2025 [facility] DATE CREATED AUTHOR AUTHOR'S ORGANIZ ATION 08/13/2025 [facility] Care Teams (unrecognized sec tion and content) Team MemberRelationshipSpecialtyStart DateEnd Date Shaikh Cain MD [address] [place] [address] [facility]04/25/24 Jeramie Mendez MD [address] [place] [address] [facility]CP [facility]08/29/24 Digna Waldrop NP [address] [place] [address] Nurse PractitionerStephens County Hospital08/29/24Team MemberRelationshipSpecialtyStart DateEnd Date Shaikh Cain MD [address] [place] [address] PCP - [facility]04/25/24 Jeramie Mendez MD [address] [place] [address] PCP - [facility]08/29/24 Digna Waldrop NP [address] [place] [address] Nurse Pract[facility]erStephen[facility]08/29/24Team MemberRelationshipSpecialtyStart DateEnd Date Shaikh Cain MD [address] [place] [address] [facility]04/25/24 Jeramie Mendez MD [address] [place] [address] [facility] - [facility]08/29/24 Digna Waldrop NP [address] [place] [address] Nurse [facility]08/29/24Te MemberRelationshipSpecialtyStart DateEnd Date Shaikh Cain MD [address] [place] [address] [facility]04/25/24 Jeramie Mendez MD [address] [place] [address] [facility]08/29/24 Digna Waldrop NP [address] [place] [address] Nurse [facility]08/29/24Team MemberRelationshipSpecialtyStart DateEnd Date Shaikh Cain MD [address] [place] [address] [facility]04/25/24 Jeramie Mendez MD [address] [place] [address] [facility]08/29/24 Digna Waldrop NP [address] [place] [address] Nurse [facility]08/29/24Te MemberRelationshipSpecialtyStart DateEnd Date Shaikh Cain MD [address] [place] [address] [facility]04/25/24 Jeramie Mendez MD [address] [place] [address] [facility]08/29/24 Digna Waldrop, BAKER [address] [place] [address] Nurse [facility]08/29/24Team MemberRelationshipSpecialtyStart DateEnd Date Shaikh Cain MD [address] [place] [address] [facility]04/25/24 Jeramie Mendez MD [address] [place] [address] PCP - [facility]08/29/24 Digna Waldrop NP [address] [place] [address] Nurse Pract[facility]erStephen[facility]08/29/24Team MemberRelationshipSpecialtyStart DateEnd Date Shaikh Cain MD [address] [place] [address] [facility]04/25/24 Jeramie Mendez MD [address] [place] [address] PCP - [facility]08/29/24 Digna Waldrop, ROCIO [address] [place] [address] [facility] Pract[facility]er[facility]08/29/24 Team Status: Active Member Role Status Dates [facility] Primary Care Provider Active Team Status: Active Member Role Status Dates [facility] Primary Care Provider Active Start: July 18, 2025 Dallin Rauschending ProviderActiveStart: July 18, 2025 Adonis Macdonald MDOther ProviderActiveStart: July 18, 2025 Team Status: Active Member Role Status Dates [facility] Primary Care Provider Active Start: July [...] ProviderActiveStart: July 18, 2025 Fe Chow , BAKER-COther ProviderActiveStart: July 18, 2025 Soo Little , [...] , APRNOther ProviderActiveStart: July 18, 2025 Ray Parosns MDOther ProviderActiveStart: July 18, 2025 Mimi Allen RNOther ProviderActiveStart: July 18, 2025 Ajit Hirsch MDAttending ProviderActiveStart: July 18, 2025 Ajit Hirsch MDOther ProviderActiveStart: July 18, 2025 Team Status: Inactive Member Role Status Dates [facility] Dept Primary Care Provider Active Start: July 27, 2025 End: July 27, 2025StAna Walters ProviderActiveStart: July 27, 2025 End: July 27, 2025Team MemberRelationshipSpecialtyStart DateEnd Date Shaikh Cain MD PCP - GeneralInternal Medicine12/28/2410 Shaikh Cain MD [address] [place] [address] PCP - [facility]04/25/24 Jeramie Mendez MD [address] [place] [address] PCP - [facility]08/29/24 Digna Waldrop NP [address] [place] [address] Nurse PractitionerStephen[facility]08/29/24 Reason for Visit (unrecogniz ed section and content) ReasonCommentsFollow-upReasonOnset DateCommentsMed Swklqv4604/24/2025 Goals (unrecognized section and content) Goals may [...] BE BASED ON THE PRIMARY CLINICAL RECORDS. [facility]. provides no warranty or guarantee of the accuracy or completeness of information in this document.
--- OUTSIDE RECORDS SUMMARY | 2025-10-25 23:13 | XMS_ITS | Clinical Summary ---
[facility] Organization [facility] Address [id number] [address] [place] [address] Care Team Providers Care Control Systems Specialist Name Role Phone No Pcp, No Pcp Primary Care Provider Unavailabl e Allergies Active AllergyReactionsCriticalityNoted RpmxAxdtsgewEkmfdekvbvg42/30/2022 Medications Hospital, Clinic, or Other Facility Administered MedicationOrdered DoseRoute FrequencyStart DateEnd DateStatus naloxone (NARCAN) 4 mg/actuation nasal spray - TAKE HOME KIT 4 mg 4 mgAlt CbqhlRdkr99/01/2022ctive Social History Tobacco UseTypesPacks/DayYears UsedDateSmoking Tobacco: Every DayCigarettes Smokeless Tobacco: NeverAlcohol UseStandard Drinks/WeekCommentsNot Currently0 (1 standard drink = 0.6 oz pure alcohol)ChildcareAnswerDate RecordedChildcare Payqapx6704/06/2019EmploymentAnswerDate LxibguxjKmsjqpdufnIrclbnb31/12/2019Sex and Gender InformationValueDate RecordedSex Assigned at BirthNot on fileLegal Sex Male05/31/2015 11:52 AM EDTGender IdentityNot on fileSexual OrientationNot on file Last Filed Vital Signs Vital SignReadingTime TakenCommentsBlood Pgxewbnl307/8510 1:30 AM EDT Wvquy6900 1:30 AM ZOWLtxsfaelrms56.9 ??C (98.5 ??F)07/25/2022 11:57 PM EDTRespiratory Uksr2333 1:30 AM EDTOxygen Wuwfxyasmf25%07/26/2022 1:30 AM EDTInhaled Oxygen Concentration--Zgyrwn27 kg (205 lb)07/25/2022 11:57 PM EDT Eycbcg687.8 cm (5' 10 )07/25/2022 11:57 PM EDTBody Mass Index29.41007/25/2022 11:57 PM EDT Plan of Treatment Not on file Medical Devices Not on file Care Teams Team MemberRelationshipSpecialtyStart DateEnd Date [place], [place] [address] [facility] Nyjjfwin45/1/22
--- OUTSIDE RECORDS SUMMARY | 2025-10-25 23:13 | XMS_ITS | Clinical Summary ---
Author Organization [facility] Address [address] [facility] [place] [address] Care Team Providers Care Electronic Integrated Systems Mechanic Name Role Phone Unavailable Primary Care Provider Unavailabl e Source Comments The following information is NOT included in Care Everywhere downloads:Psychiatric notes, ECG results, Cardiac Rehab notes, Pulmonary Function notes, data from SmartForms (includes but not limited toPregnancy data,audiograms, eye exams, pre-surgical evaluation notes, well-child exam data).[facility] Immunizations ImmunizationAdministration DatesNext DueDTP (CVX=01)01/10/2021Influenza, injectable, quadrivalent, preservative free (IIH=046)09/08/2019 Social History Tobacco UseTypesPacks/DayYears UsedDateSmoking Tobacco: Never AssessedSex and Gender InformationValueDate RecordedSex Assigned at BirthNot on fileLegal Sex Male06/07/2021 2:04 AM EDTGender IdentityNot on fileSexual OrientationNot on file Plan of Treatment Health MaintenanceDue DateLast KnqtBshhmsciUqjbhsbzsco1967HIV Test 1982Hepatitis C Yypoziav69/07/1985Tdap Jupgyja9501/30/1985Hepatitis A (HAV) Vaccine (optional start 19+ years)1986Hepatitis B (HBV) Vaccine (1 of 3 - 19+ 3-dose series)1986Tetanus (Td or Tdap) Amvclrp6501/30/1986CRC Screening 01/31/2012Cologuard (Stool DNA)01/31/2012FIT01/31/2012Pneumococcal Vaccine(s) (50+ yrs) (1 of 1 - PCV)2017Shingles (RZV) Vaccine (1 of 2)2017 COVID-19 Vaccine (2024- season)2025Influenza Vaccine (#1)2025 09/08/20197820Axmqwpgfhcl36 Insurance on file on file
--- OUTSIDE RECORDS SUMMARY | 2025-10-25 23:13 | XMS_ITS | Patient Health Record ---
Author Organization [facility] Address [address] [place] [address] Care Team Providers Care User Interface Artist Name Role Phone Nichole Lockett Primary Care Provider Reason For Referral No Information Medications Medication SIG (Take, Route, Frequency, Duration) Notes Start Date End Date Status Ibuprofen 800 MG Tablet 1 tablet with fo od or milk as needed Orally Three times a day 04/02/2023ctiveIbuprofen 800 MG Tablet1 tablet with food or milk as needed Orally Three times a day12/22/2022ctive Problems Problem Type SNOMED Code ICD Code Onset Dates Problem Status W/U Status Risk Notes Problem Other dental procedure status (Z98.818)Activeconfirmed Plan Of Treatment No Information Insurance Providers Payer Name Payer Address Payer Phone Subscriber Number Group Number Insured Name Patient Relationship to Insured Coverage Start Date Coverage End Date [employer] [place] [employer] [address] [place] [address] [id number] Carisa PLAZA - patient is the buzifme0811/26/2022[facility] [address] [place] [id number], DAVIDSelf - patient is the qikrfyi0311/26/2022[facility] 11/25/22.[address] [place] [id number] Carisa - patient is the [id number] [employer] after [place]-termed 11/25/22[address] [place] [id number] Carisa - patient is the [id number] [place]-termed 11/25/22[address] [address] [place] [phone] - patient is the [id number] Medicaid ABD after [place]-termed 11/25/22 [address] [place] [id number], DAVIDSelf - patient is the [id number] [place] [employer] [address] [place] [id number], DAVIDSelf - patient is the fizmkbx4611/26/2022ental W[employer] ABD [place] [address] [place] [address] [id number], DAVIDSelf - patient is the insured 11/26/2022
--- OUTSIDE RECORDS SUMMARY | 2025-10-25 23:13 | XMS_ITS | Clinical Summary ---
Author Organization [facility] Address [address] [place] [address] Care Team Providers Care Middleware Solutions Architect Name Role Phone Shaikh MARY ELLEN Cain Unavailable [phone] Jeramie Mendez MD Primary Care Provider [phone] Jessica Waldrop NP Unavailable [phone] Allergies Active AllergyReactionsCriticalityNoted NtrwYykgkboyHrziunsryjf72/30/2022 Medications MedicationSigDispense QuantityRefillsLast FilledStart DateEnd DateStatus albuterol HFA (Ventolin HFA) 90 mcg/act inhaler Indications:Pulmonary emphysema, unspecified emphysema type (HCC)Inhale 2 puffs every 4 (four) hours if needed for wheezing 18 g 4Active tiotropium (Spiriva Respimat) 2.5 MCG/ACT inhaler Indications:Pulmonary emphysema, unspecified emphysema type (HCC)Inhale 2 puffs Daily 1 each 5Active Fluticasone-Salmeterol (Advair Diskus) 250-50 MCG/ACT aerosol powder Indications:Pulmonary emphysema, unspecified emphysema type (HCC)Inhale 1 puff in the morning and 1 puff before bedtime. Rinse mouth after use. 60 each 5Active pantoprazole (ProtoNix) 40 MG EC tablet Indications:Dyspepsia and disorder of function of stomachTake 1 tablet (40 mg) by mouth in the morning and 1 tablet (40 mg) before bedtime. 180 tablet 5Active Active Problems ProblemNoted DateDiagnosed DateChronic hand pain, left05/16/2025 Assessment & Plan (05/16/2025 2:31 PM EDT): Check xray uric acid and RA Cigarette nicotine dependence without lawobksxszej33/22/2025 Assessment & Plan (05/16/2025 7:03 AM EDT): The patient has been advised of the risks of continued smoking: stroke, IL, all forms of cancer, lung disease, and . Options for quitting smoking include: cold turkey, hypnosis, acupuncture, nicotine replacement meds(gum, lozenges, and patches), Buproprion, and Varenicline. At this time pt is encouraged to evaluate their goals for wanting to quit smoking, and reach out toprovider when ready to start this process Assessment & Plan (03/16/2025 6:53 AM EDT): The patient has been advised of the risks of continued smoking: stroke, IL, all forms of cancer, lung disease, and . Options for quitting smoking include: cold turkey, hypnosis, acupuncture, nicotine replacement meds(gum, lozenges, and patches), Buproprion, and Varenicline. At this time pt is encouraged to evaluate their goals for wanting to quit smoking, and reach out toprovider when ready to start this process Prostate cancer kpahtbkdi42/22/2025Encounter for screening for malignant neoplasm of colon02/16/2024 Assessment & Plan (02/16/2024 2:44 PM EDT): Never had colon cancer screening - ordered cologuard Encounter for screening for lung hhyrhn4802/16/2024 Overview (03/30/2025): CT lung negative 03/30/25 Assessment [...] smoking cessation. COPD (chronic obstructive pulmonary disease) with ymnkacpqa73/05/2024 Assessment & Plan (05/16/2025 7:03 AM EDT): [...] to quit smoking. Gastroesophageal reflux disease without iurbhsgegqf46/05/2024 Assessment & Plan (05/16/2025 2:32 PM EDT): [...] in the past. Resume Elevated blood pressure reading in office without diagnosis of hypertension 12/29/2023 [...] Monitor for now. Right upper quadrant abdominal pain12/29/2023 Assessment & Plan (02/16/2024 2:42 PM EDT): [...] liver, start back on protonix. Resolved Problems ProblemNoted DateDiagnosed DateResolved DateTobacco abuse Assessment & Plan (02/16/2024 2:41 PM EDT): Patient counseled on smoking/tobacco cessation. Patient educated on harmful effects of smoking cigarettes/tobacco including increased risk of cardiovascular diseases, chronic lung disease and multiple cancers. Not interested in quitting Annual physical exam/ Assessment & Plan (02/16/2024 2:48 PM EDT): Here for Wellness Exam. Patient here for Annual Wellness Exam. Reviewed medical, surgical and social hx. Reviewed medication list. Health related questions and concerns addressed and answered. Patient provided appropriate education on chronic medical conditions and prescription medications. Ordered Cologuard, LDCT for colon and lung cancer screening. Discussed and encouraged smoking cessation with patient. Current jqikpj94 Assessment & Plan (12/29/2023 3:04 PM EST): Patient counseled on smoking/tobacco cessation. Patient educated on harmful effects of smoking cigarettes/tobacco including increased risk of cardiovascular diseases, chronic lung disease and multiple cancers. He is currently not ready to quit. Encounter for medical examination to establish care Assessment & Plan (12/29/2023 3:04 PM EST): New Patient, here to establish care. Reviewed medical, surgical and social hx. Reviewed available old records. Reviewed and updated medication list. Lipid jgzxuugvm06 Assessment & Plan (12/29/2023 3:04 PM EST): Overweight, age over 40, screen for hld Screening for diabetes qmsfhxen12 Assessment & Plan (12/29/2023 3:04 PM EST): Overweight, age over 40, screen for T2 DM Dyspepsia and disorder of function of bfrfygp78 Assessment & Plan (12/29/2023 3:03 PM EST): Likely dyspepsia and GERD responsible for his pain as using PPI helped in the past. Resume Immunizations ImmunizationAdministration DatesNext GkcKBW4101/10/2021Influenza, injectable, quadrivalent, preservative free09/08/2019Tdap01/10/2021 Family History Medical HistoryRelationNameCommentsNo Known ProblemsFatherLung cancerMother RelationNameStatusCommentsFatherMotherDeceased Social History Tobacco UseTypesPacks/DayYears UsedDateSmoking Tobacco: Every DayCigarettes Passive Smoke Exposure: CurrentSmokeless Tobacco: Never Tobacco Cessation:Ready to Q uit: Not Asked; Counseling Given: Not Answered Alcohol UseStandard Drinks/WeekCommentsNever0 (1 standard drink = 0.6 oz pure alcohol)B1300 Health LiteracyAnswerDate RecordedHow often do you need to have someone help you when you read instructions, pamphlets, or other written material from your doctor or pharmacy?Never11/17/2024Social Connection and Isolation PanelAnswerDate RecordedIn a typical week, how many times do you talk on the phone with family, friends, or neighbors?More than three times a week 09/11/2024How often do you get together with friends or relatives?Once a week 09/11/2024How often do you attend jain or quaker services?Never09/11/2024o you belong to any clubs or organizations such as jain groups, unions, fraBBOXX or athletic groups, or school groups?No09/11/2024How often do you attend meetings of the clubs or organizations you belong to?Never09/11/2024re you , , , , never , or living with a partner?Living with odqkhbw2009/11/2024UDIT-CAnswerDate RecordedQ1: How often do you have a drink containing alcohol?Never09/11/2024Q2: How many drinks containing alcohol do you have on a typical day when you are drinking?Patient does not drink09/11/2024Q3: How often do you have six or more drinks on one occasion?Never09/11/2024Overall Financial Resource Strain (CARDIA)AnswerDate RecordedHow hard is it for you to pay for the very basics like food, housing, medical care, and heating?Somewhat hard09/11/2024HQ-2AnswerDate RecordedPatient Health Questionnaire-2 [facility]tvtq693[facility] [place] [facility] Occupational Health - Occupational Stress QuestionnaireAnswerDate RecordedDo you feel stress - tense, restless, nervous, or anxious, or unable to sleep at night because your mind is troubled all the time - these days?Not at all09/11/2024Exercise Vital SignAnswerDate RecordedOn average, how many days per week do you engage in moderate to strenuous exercise (like a brisk walk)?1 day09/11/2024On average, how many minutes do you engage in exercise at this level?0 min09/11/2024Hunger Vital SignAnswerDate RecordedWithin the past 12 months, you worried that your food would run out before you got the money to buymore.Sometimes true09/11/2024 Within the past 12 months, the food you bought just didn't last and you didn't have money to get more.Never true09/11/2024RAPARE - TransportationAnswerDate RecordedIn the past 12 months, has lack of transportation kept you from medical appointments or from getting medications?No09/11/2024In the past 12 months, has lack of transportation kept you from meetings, work, or from getting things needed for daily living?No09/11/2024Housing Stability Vital SignAnswerDate RecordedIn the last 12 months, was there a time when you were not able to pay the mortgage or rent on time?Yes09/11/2024In the past 12 months, how many times have you moved where you were living?t any time in the past 12 months, were you homeless or living in a mcc (including now)?No09/11/2024Sex and Gender InformationValueDate RecordedSex Assigned at BirthNot on fileLegal JxdAnma1101/07/2023 7:20 PM EDTGender IdentityNot on fileSexual OrientationNot on file Last Filed Vital Signs Vital SignReadingTime TakenCommentsBlood Zwahcuxq259/8607 2:11 PM EDT Ifage9930 2:11 PM GOFFdzbmvnxlag82.9 ??C (98.5 ??F)05/16/2025 2:11 PM EDTRespiratory Arcg808305/16/2025 2:11 PM EDTOxygen Vmvospuxgm73%05/16/2025 2:11 PM EDTInhaled Oxygen Concentration--Wtikts81.4 kg (177 lb 3.2 oz)05/16/2025 2:11 PM LGODyplnk516.8 cm (5' 10 )09/14/2024 11:06 AM ESTBody Mass Index25.43 09/14/2024 11:06 AM EST Plan of Treatment Health MaintenanceDue DateLast DoneCommentsCT Bavchpoaidgo1967Colonoscopy 1967Colorectal Cancer Jcaxffyae1967FIT-DNA1967FIT1967 FOBT01/30/19678228Bsoyvhfudtpwu1967Pneumococcal Vaccine: Pediatrics (0 to 5 Years) and At-Risk Patients (6 to 64 Years) (1 of 2 - PCV)1986Influenza Vaccine (#1) Insurance Care Teams Team MemberRelationshipSpecialtyStart DateEnd Date Shaikh Cain MD [address] [place] [phone] PCP - [facility]04/25/24 Jeramie Mendez MD [address] [place] [phone] [facility]24 Jessica Waldrop NP [facility]08/29/24
--- NOTE | 2025-10-29 08:23 | PC.NURSE ---
10/29/25: [facility] NEG FOR GROWTH
== END 2025-10-25 23:15 | disposition home or self-care (01) ==
PROVIDERS: Emergency Provider Emergency Medicine
DX: K59.00 Constipation, unspecified (principal)
CPT/HCPCS: 36415; 74018; 80048; 80076; 81001; 82150; 83690; 85025; 87086; 99283